=== PATIENT | female | born 1955 | race Caucasian/White ===

== ENCOUNTER 2020-04-12 16:49 | Emergency (ER) | payer MEDICARE, SELFPAY ==
--- NOTE | ~2020-04-12 | XR_ITS ---
XR hip LT 2V w AP pelvis 04/12/2020 18:45 Indication: Left lateral hip pain after fall Procedure: 3 views left hip including AP pelvis Comparison: 05/21/2018 Findings: Pelvic rings are intact. There is a left total hip arthroplasty. No acute fracture or traum atic malalignment. Prosthesis well seated. Osteopenia. Sclerotic lesion in the right ilium superiorly , likely bone island. Moderate osteoarthritis of the right hip. Moderate lower lumbar spondylosis. Pe lvic rings are intact. Impression: 1: No acute fracture. Reviewed, dictated and finalized at location A. ICIAN'S AIDE Impression: 1: No acute fracture.
--- NOTE | ~2020-04-12 | XR_ITS ---
XR knee LT 3V 04/12/2020 18:45 Indication: Status post fall. Left knee pain. Procedure: 3 views left knee Comparison: 05/21/2018 Findings: There has been progression of severe osteoarthritis of the left knee, most advanced in the lateral compartment. There are prominent degenerative subchondral cysts. Osteopenia. Small joint effu lesley. No acute fracture is identified. Impression: 1: No acute fracture. 2: Progression of severe osteoarthritis of the left knee. 2: Small joint effusion. Reviewed, dictated and finalized at location A. ER DEMOLDER Impression: 1: No acute fracture. 2: Progression of severe osteoarthritis of the left knee. 2: Small joint effusion.
[2020-04-12 17:18] VITALS: BP 152/74; PULSE 73; RESP 18; TEMP 36.7; O2SAT 100
--- NOTE | 2020-04-12 19:47 | ED.FALL ---
HPI - Fall General Chief Complaint: Fall Stated Complaint: Fall- left leg pain Time Seen by Provider: 04/12/20 18:58 Source: patient Mode of arrival: ambulatory Limitations: no limitations History of Present Illness HPI Narrative: Patient is a 64 year old female who presents complaining of left knee pain, she reports history of left knee pain but reports increased after slip and fall today. She denies hitting head or LOC. She denies other injuries. Patient has not taken any over the counter medications for pain at this time. Related Data Allergies Allergy/AdvReac Type Severity Reaction Status Date / Time meperidine Allergy Unknown Verified 05/19/15 11:28 Penicillins Allergy Unknown Verified 05/19/15 11:28 Review of Systems Review of Systems: Narrative: CONSTITUTIONAL: Denies fever, chills, or sweats. EYES: Denies visual changes, redness, or discharge. ENT: Denies rhinorrhea, congestion, sore throat, or otalgia. CARDIOVASCULAR: Denies chest pain, palpitations, or edema. RESPIRATORY: Denies cough or dyspnea. GASTROINTESTINAL: Denies abdominal pain, nausea, vomiting, or diarrhea. GENITOURINARY: Denies dysuria or hematuria. SKIN: Denies rash or itching. MUSCULOSKELETAL: Reports left knee pain. NEUROLOGIC: Denies headache, numbness, dizziness, or weakness. PSYCHIATRIC: Denies anxiety or depression. [facility] Past Medical History Medical History Anxiety Arthritis Bipolar disorder Depression Hip fracture, left 05/06/17 HTN (hypertension) Seizures Surgical History Surgical History H/O inguinal hernia repair Family History Family History Mother Family history of heart disease in male family member before age 55 Father Acute myocardial infarction Other Diabetes mellitus Family history of malignant neoplasm Hypertension Social History Social History (Updated 04/13/20 @ 01:00 by ISRAEL Rider) Smoking status: Never smoker Alcohol intake: never Substance use: never Living arrangements: with family Comments At the time of signature, I have reviewed and agree with nursing past medical, surgical, social, and family history unless otherwise noted. Please see nursing chart for further information. There is no relevant family history pertinent to the presenting complaint. Exam Narrative: Exam Narrative: GENERAL: Well-appearing, well-nourished, and in no acute distress. HEAD: Normocephalic, atraumatic. EYES: EOMI. No redness or drainage. Conjunctiva are normal. ENT: Mucous membranes pink and moist. CHEST: No respiratory distress. Clear to auscultation. HEART: Regular rate and rhythm. EXTREMITIES: Edema and tenderness palpation to the left knee, no warmth or erythema noted. No shortness or rotation of left leg SKIN: Warm, dry, no rash. NEURO: No focal deficits. Alert and oriented x3. PSYCH: Normal affect. No signs of depression or anxiety. Course Vital Signs Vital signs: Vital Signs Temperature 36.7 C 04/12/20 17:18 Pulse Rate 73 04/12/20 17:18 Respiratory Rate 18 04/12/20 17:18 Blood Pressure 152/74 H 04/12/20 17:18 Pulse Oximetry 100 04/12/20 17:18 Temperature 36.3 C L 04/12/20 21:13 Pulse Rate 62 04/12/20 21:13 Respiratory Rate 18 04/12/20 21:13 Blood Pressure 148/89 H 04/12/20 21:13 Pulse Oximetry 100 04/12/20 21:13 Reviewed-patient is informed that they may have pre-hypertension or hypertension based on a blood pressure reading. I recommend the patient call the primary care provider listed on their discharge instructions or a physician of their choice this week to arrange follow-up for further evaluation of possible pre-hypertension or hypertension. MDM - Fall MDM Narrative Medical decision making narrative: Discussed with patient and family and that patient's cause of pain most likely
[2020-04-12 21:13] VITALS: BP 148/89; PULSE 62; RESP 18; TEMP 36.3; O2SAT 100
== END 2020-04-12 21:17 | disposition home or self-care (01) ==
PROVIDERS: Emergency Provider Nurse Practitioner; PCP Family Medicine
DX: M17.12 Unilateral primary osteoarthritis, left knee (principal); I10 Essential (primary) hypertension; W01.0XXA Fall on same level from slipping, tripping and stumbling without subsequent striking against object, initial encounter
CPT/HCPCS: 73502; 73562; 99284

== ENCOUNTER 2020-08-17 20:53 | Observation (INO) | payer MEDICARE, SELFPAY ==
--- NOTE | ~2020-08-17 | XR_ITS ---
EXAMINATION: XR ankle LT min 3V EXAM DATE: 08/17/2020 21:43 INDICATION: Fall today, arthritis. TECHNIQUE: Left ankle frontal, lateral and oblique projections obtained and reviewed. Comparison is m germán to prior examination from 05/02/2018, foot exam 12/14/2010. FINDINGS: There is severe polyarticular osteoarthritis. No acute fracture line is identified. Moderat e-sized calcaneal spurs. No radiopaque foreign bodies identified. IMPRESSION: Advanced polyarticular osteoarthritis. No acute fracture line identified. Reviewed, dictated and finalized at location A. IMPRESSION: Advanced polyarticular osteoarthritis. No acute fracture line iden tified.
--- NOTE | ~2020-08-17 | XR_ITS ---
EXAMINATION: XR knee LT 3V EXAM DATE: 08/17/2020 21:44 INDICATION: Fall, arthritis, left knee pops often. Anterior bruising. TECHNIQUE: Three projections of the left knee. Comparison is made to prior examination from 04/12/2020. FINDINGS: There is severe left knee osteoarthritis. Small joint effusion. There are no acute fractu res or dislocations identified. There is no subcutaneous gas. The soft tissue is unremarkable. Th ere are no radiopaque foreign bodies. IMPRESSION: 1. XR knee LT 3V exam without acute osseous findings. 2. Severe osteoarthritis. 3. Small joint effusion. Reviewed, dictated and finalized at location A.
[2020-08-17 21:06] VITALS: BP 136/73; PULSE 71; RESP 15; TEMP 36.9; O2SAT 100
--- NOTE | 2020-08-17 22:15 | ED.GENADULT ---
HPI - General Adult General Chief complaint: Extremity Injury, Lower Stated complaint: fell, left knee pain Time Seen by Provider: 08/17/20 21:22 Source: patient History of Present Illness HPI narrative: Patient is a 65 y/o female complaining of pain to left knee after she fell about 2-3 hours ago. She rates her pain as 10/10. Pain is worsen with movement. She did not hit her head. She denies neck pain, back pain, chest pain or abdominal pain. Related Data Home Medications Medication Instructions Recorded Confirmed fluoxetine 20 mg PO DAILY 08/17/20 08/18/20 lamotrigine 150 mg PO HS 08/17/20 08/18/20 levothyroxine 25 mcg PO DAILY 08/17/20 08/18/20 lisinopril 40 mg PO DAILY 08/17/20 08/18/20 lithium carbonate 450 mg PO Q12H 08/17/20 08/18/20 meloxicam 15 mg PO HS 08/17/20 08/18/20 simvastatin 40 mg PO HS 08/17/20 08/18/20 ergocalciferol (vitamin D2) 1,250 mcg PO WEEKLY 08/18/20 08/18/20 Allergies Allergy/AdvReac Type Severity Reaction Status Date / Time meperidine Allergy Unknown Vomiting Verified 08/17/20 21:53 Penicillins Allergy Unknown Rash Verified 08/17/20 21:53 Review of Systems Constitutional: Constitutional: Denies headache(s) ENT: Denies neck pain Cardiovascular: Cardiovascular: Denies chest pain Gastrointestinal: Gastrointestinal: Reports diarrhea and Reports vomiting Musculoskeletal: Musculoskeletal: Denies back pain, Reports arthralgias (left knee pain) and Denies neck pain Neurologic: Denies headache(s) [facility] Past Medical History Medical History (Updated 08/22/20 @ 14:06 by Nargis Amato MD) Anxiety Arthritis Bipolar disorder Depression Hip fracture, left 05/06/17 HTN (hypertension) Seizures Surgical History Surgical History H/O inguinal hernia repair Family History Family History Mother Family history of heart disease in male family member before age 55 Father Acute myocardial infarction Other Diabetes mellitus Family history of malignant neoplasm Hypertension Social History Social History Smoking status: Never smoker Alcohol intake: never Substance use: never Gender identity (if verbalized by the patient): Female Spiritual care concerns: No Exam Const: General: no acute distress and well developed HENMT: Head: normocephalic Ears: external ears normal General nose exam: Normal external nose present Eyes: General: appearance normal, both eyes and all related structures Conjunctivae: conjunctivae normal Resp: Effort & Inspection: normal respiratory effort Auscultation: clear to auscultation bilaterally Skin: General skin exam: normal color, turgor normal and ecchymosis (bruise on left knee) Neuro: General: other (awake, alert) Extrem: General: normal to inspection and other (chronic appearing deformity of bilateral knee and ankle) Psych: Appearance: grossly normal Mental Status: mental status grossly normal Affect: normal affect Course Reevaluation(s) Reevaluation #1: Rechecked. Patient is not able to ambulate. Sister in law states that she would not be able to get patient in car and back into house. She would patient to go to rehab. Date: 08/17/20 Time: 22:45 Consultations Consultation #1: Discussed with Dr. Hopper, who agrees to admit. She recommends pain control and PT/OT consult. Date: 08/17/20 Time: 23:26 Vital Signs Vital signs: Vital Signs Temperature 36.9 C 08/17/20 21:06 Pulse Rate 71 08/17/20 21:06 Respiratory Rate 15 08/17/20 21:06 Blood Pressure 136/73 08/17/20 21:06 Pulse Oximetry 100 08/17/20 21:06 Temperature 36.2 C L 08/20/20 06:00 Pulse Rate 70 08/20/20 06:00 Respiratory Rate 18 08/20/20 06:00 Blood Pressure 116/74 08/20/20 06:00 Pulse Oximetry 100 08/20/20 06:00 Medical Decision Making Vital Signs Vital Signs: Vital Signs
[2020-08-17 23:08] LABS: Basophils Percent Auto 0.3 % (0.2-1.2); Eosinophils Absolute Auto 0.1 K/mm3 (0-0.3); Eosinophils Percent Auto 1.3 % (0-4.4); Hematocrit 41.6 % (37.0-47.0); Hemoglobin 12.6 g/dL (12.0-15.0); Immature Granulocyte Absolute 0.03 K/mm3 (0.00-0.031); Immature Granulocyte Percent A 0.3 % (0-0.5); Lymphocytes Absolute Auto 0.73 K/mm3 (0.9-3.2); Lymphocytes Percent Auto 7.5 % (18.3-44.2); Mean Corpuscular HGB Conc 30.3 g/dl (32-36); Mean Corpuscular Hemoglobin 29.9 pg (26-34); Mean Corpuscular Volume 98.6 fl (80-100); Mean Platelet Volume 8.9 fl (7.4-10.4); Monocytes Absolute Auto 0.6 K/mm3 (0.1-0.6); Monocytes Percent Auto 6.6 % (2.6-8.5); Neutrophils Absolute Auto 8.2 K/mm3 (1.3-6.7); Platelet Count Result 346 k/mm3 (150-375); Red Blood Count 4.22 M/mm3 (4.2-5.4); Red Cell Distribution Width 13.8 % (11.5-14.5); White Blood Count 9.7 K/mm3 (4.5-10.0)
[2020-08-17 23:17] LABS: Anion Gap 10 mmol/L (8-16); Blood Urea Nitrogen 23 mg/dL (7-17); Calcium 10.2 mg/dL (8.4-10.2); Carbon Dioxide 26 mmol/L (22-30); Chloride 106 mmol/L (98-107); Estimated CRCL calculation 73 ml/min; Estimated Glomerular Filt Rate > 60; Glucose 110 mg/dL (65-105); Potassium 4.3 mmol/L (3.4-5.0); Sodium 142 mmol/L (137-145)
[2020-08-17 23:30] VITALS: BP 126/72; PULSE 76; RESP 18; O2SAT 100
[2020-08-17] MEDS: ACETAMINOPHEN 325 MG TABLET 650 MG PO (23:41)
[2020-08-18 00:30] VITALS: BP 158/75; PULSE 73; RESP 16; TEMP 36.8; O2SAT 98
--- NOTE | 2020-08-18 00:45 | ADMGEN ---
This patient, Kelly Mcmahon, was admitted to 3 [facility] Surg Room 301-01. Patient/family oriented to hospital policies and general routines including ID bracelet, bed and alarms, visiting hours, pain management, procedures, bathroom and other care routines, personal items, smoking policy, room service/diet, and visiting hours. Information on how to activate the Rapid Response Team has been discussed. Patient/Family are encouraged to report perceived risks to care and to ask questions if they do not understand what they are told or what they should do.
[2020-08-18 05:59] VITALS: BP 155/69; PULSE 74; RESP 16; TEMP 36.9; O2SAT 98
--- NOTE | 2020-08-18 08:08 | PM.IMHP ---
H&P: HPI History of Present Illness Date/Time: 08/18/20 08:08 Chief Complaint: FALL Narrative: THIS IS A 65-YEAR-OLD FEMALE WITH PAST MEDICAL HISTORY SIGNIFICANT FOR BIPOLAR DISORDER ,DEGENERATIVE JOINT DISEASE, HYPERTENSION. PATIENT USUALLY USES A WALKER SHE WAS BROUGHT TO THE EMERGENCY ROOM VIA EMS AFTER HER WALKER GOT STUCK SENDING HER TO THE GROUND LANDING ON HER LEFT KNEE SHE STATES THAT IS VERY PAINFUL TO BEAR WEIGHT ON IT OR TO MOVE IT. PATIENT HAS BEEN HER USUAL STATE OF HEALTH DENIES ANY ,FEVERS ,RIGORS, CHILLS, NAUSEA, VOMITING, ABDOMINAL PAIN, DIARRHEA, DIZZINESS, LIGHTHEADEDNESS, CHEST PAIN, PALPITATIONS, ORTHOPNEA, PND, LEG SWELLING, CLAUDICATION, NO SYNCOPE OR NEAR SYNCOPE. PRELIMINARY WORKUP WAS ESSENTIALLY NONREVEALING ANY X-RAY SHOWED SEVERE OSTEO ARTHRITIC CHANGES. Review of Systems Review of Systems: Narrative: PATIENT PRESENTED TO THE EMERGENCY ROOM AFTER SHE HAD A FALL WHEN HER WALKER GOT STUCK SENDING HER TO THE GROUND Constitutional: Constitutional: Denies chills, Denies fatigue, Denies fever(s) and Denies weakness Eyes: Eyes: Denies change in vision ENT: Denies dysphagia, Denies vertigo, Denies dizziness, Denies nasal congestion, Denies nasal discharge and Denies nasal obstruction Cardiovascular: Cardiovascular: Denies irregular heart rhythm, Denies radiating jaw, neck or arm pain, Denies palpitations, Denies dyspnea and Denies orthopnea Respiratory: Respiratory: Denies dyspnea Gastrointestinal: Gastrointestinal: Denies diarrhea, Denies nausea and Denies vomiting Genitourinary: Genitourinary: Denies dysuria Musculoskeletal: Musculoskeletal: Reports arthralgias ( LEFT KNEE) and Reports joint swelling Integumentary/Breasts: Skin/Breast: Denies rash Neurologic: Denies focal weakness and Denies Sensory deficit (Neuro) Psychiatric: Psychiatric: Reports no additional psychiatric complaints Endocrine: Endocrine: Reports no additional endocrine complaints Hematologic/Lymphatic: Hematologic/Lymphatic: Reports no additional hematologic/lymphatic complaints Allergic/Immunologic: Allergic/Immunologic: Reports no additional allergic/immunologic complaints [facility] Past Medical History Medical History (Updated 08/18/20 @ 14:28 by Issac Shah MD) Anxiety Arthritis Bipolar disorder Depression Hip fracture, left 05/06/17 HTN (hypertension) Seizures Surgical History Surgical History H/O inguinal hernia repair Family History Family History Mother Family history of heart disease in male family member before age 55 Father Acute myocardial infarction Other Diabetes mellitus Family history of malignant neoplasm Hypertension Social History Social History Smoking status: Never smoker Alcohol intake: never Substance use: never Gender identity (if verbalized by the patient): Female Spiritual care concerns: No Meds Home Medications and Allergies Home Medications Medication Instructions Recorded Confirmed Type fluoxetine 20 mg PO DAILY 08/17/20 08/18/20 History lamotrigine 150 mg PO HS 08/17/20 08/18/20 History levothyroxine 25 mcg PO DAILY 08/17/20 08/18/20 History lisinopril 40 mg PO DAILY 08/17/20 08/18/20 History lithium carbonate 450 mg PO Q12H 08/17/20 08/18/20 History meloxicam 15 mg PO HS 08/17/20 08/18/20 History simvastatin 40 mg PO HS 08/17/20 08/18/20 History ergocalciferol (vitamin D2) 1,250 mcg PO WEEKLY 08/18/20 08/18/20 History Allergies Allergy/AdvReac Type Severity Reaction Status Date / Time meperidine Allergy Unknown Vomiting Verified 08/17/20 21:53 Penicillins Allergy Unknown Rash Verified 08/17/20 21:53 Vital Signs Vital Signs - 24 hr 08/17/20 21:06 08/17/20 23:30 08/18/20 00:30 Temperature 98.5 F 98.2 F Pulse Rate 71 76 73 Respiratory Rate 15 18 16 Blood Pressure 136/73 126/72 15
[2020-08-18] MEDS: LEVOTHYROXINE SODIUM 25 MCG TABLET PO (09:47)
[2020-08-18] MEDS: FLUoxetine HCL 20 MG CAPSULE PO (09:47)
[2020-08-18] MEDS: lisinopriL 20 MG TABLET 40 MG PO (09:48)
[2020-08-18 11:08] VITALS: O2SAT 96
--- NOTE | 2020-08-18 12:18 | PCNSR ---
On 08/18/20, the student, Tanya Smith, provided care and completed [facility] documentation on this patient. I have reviewed the student's documentation and agree with the findings.
[2020-08-18 14:00] VITALS: BP 141/64; PULSE 72; RESP 16; TEMP 36.5; O2SAT 98
[2020-08-18] MEDS: ACETAMINOPHEN 325 MG TABLET 650 MG PO (20:38)
[2020-08-18] MEDS: lamoTRIgine 100 MG, lamoTRIgine 50 MG 150 MG PO (20:39)
[2020-08-18] MEDS: MELOXICAM 7.5 MG TABLET 15 MG PO (20:39)
[2020-08-18] MEDS: SIMVASTATIN 20 MG TABLET 40 MG PO (20:39)
[2020-08-18 22:00] VITALS: BP 138/71; PULSE 70; RESP 18; TEMP 36.6; O2SAT 100
[2020-08-19] MEDS: LEVOTHYROXINE SODIUM 25 MCG TABLET PO (05:29)
[2020-08-19 05:42] VITALS: BP 143/65; PULSE 54; RESP 18; TEMP 36.2; O2SAT 100
[2020-08-19 08:20] VITALS: PULSE 70
[2020-08-19] MEDS: FLUoxetine HCL 20 MG CAPSULE PO (08:21)
[2020-08-19] MEDS: lisinopriL 20 MG TABLET 40 MG PO (08:21)
[2020-08-19 08:25] VITALS: O2SAT 97
--- NOTE | 2020-08-19 09:18 | PM.IMPN ---
Progress Note: A&P Assessment and Plan (1) Fall: Code(s): W19.XXXA - Unspecified fall, initial encounter Status: Acute Assessment and Plan: MECHANICAL PATIENT USES WALKER PT OT EVAL AND TREAT AWAITING INSURANCE AUTH PLANNED FOR DISCHARGE TO REHABILITATION FACILITY (2) Left knee pain: Code(s): M25.562 - Pain in left knee Status: Acute Assessment and Plan: X-RAY WITH NO ACUTE FRACTURE SMALL EFFUSION SECONDARY TO TRAUMA DURING FALL TRAMADOL AND TYLENOL P.R.N. ICE PACKS TO THE AREA (3) Seizures: Code(s): R56.9 - Unspecified convulsions Status: Acute Assessment and Plan: CONTINUE LAMOTRIGINE (4) HTN (hypertension): Code(s): I10 - Essential (primary) hypertension Status: Acute Assessment and Plan: CONTINUE LISINOPRIL CONTINUE TO MONITOR (5) Arthritis: Code(s): M19.90 - Unspecified osteoarthritis, unspecified site Status: Acute Assessment and Plan: CONTINUE TYLENOL (6) Bipolar disorder: Code(s): F31.9 - Bipolar disorder, unspecified Status: Acute Assessment and Plan: CONTINUE LITHIUM CARBONATE Subjective Date/time seen: 08/19/20 09:18 I FEEL WELL Review of Systems Constitutional: Constitutional: Denies chills, Denies fatigue, Denies fever(s) and Denies weakness Eyes: Eyes: Denies change in vision ENT: Denies dysphagia, Denies vertigo, Denies dizziness, Denies nasal congestion, Denies nasal discharge and Denies nasal obstruction Cardiovascular: Cardiovascular: Denies irregular heart rhythm, Denies radiating jaw, neck or arm pain, Denies palpitations, Denies dyspnea and Denies orthopnea Respiratory: Respiratory: Denies dyspnea Gastrointestinal: Gastrointestinal: Denies dysphagia, Denies diarrhea, Denies nausea and Denies vomiting Genitourinary: Genitourinary: Denies dysuria Musculoskeletal: Musculoskeletal: Reports arthralgias ( LEFT KNEE) and Reports joint swelling Integumentary/Breasts: Skin/Breast: Denies rash Neurologic: Denies vertigo, Denies dizziness, Denies focal weakness, Denies Sensory deficit (Neuro) and Denies weakness Psychiatric: Psychiatric: Reports no additional psychiatric complaints Endocrine: Endocrine: Reports no additional endocrine complaints, Denies fatigue and Denies palpitations Hematologic/Lymphatic: Hematologic/Lymphatic: Reports no additional hematologic/lymphatic complaints Allergic/Immunologic: Allergic/Immunologic: Reports no additional allergic/immunologic complaints Exam Narrative: Exam Narrative: PATIENT WAS PLEASANTLY SLEEPING AT THE TIME OF MY ARRIVAL AND WOKE UP Const: General: cooperative, comfortable, no acute distress, well developed, alert, awake and other ( APPEARS OLDER THAN STATED AGE) Nutritional Appearance: average body habitus Orientation/consciousness: patient oriented x3 HENMT: Head: normal to inspection, normocephalic and atraumatic Ears: hearing grossly normal bilaterally General nose exam: Normal external nose present Face and sinus: normal facial exam Eyes: General: appearance normal, both eyes and all related structures Alignment and Position: alignment normal Sclera: sclerae normal Pupils: Equal, round and reactive pupils present EOM: EOMs intact bilaterally Neck: Neck: full ROM, no lymphadenopathy, supple and no JVD Thyroid: thyroid normal Lymphatic: no lymphadenopathy noted Resp: Effort & Inspection: normal respiratory effort and able to speak in complete sentences Auscultation: clear to auscultation bilaterally Cardio: Jugular venous distension: no JVD Rate: regular rate Rhythm: regular rhythm Heart sounds: S1 normal heart sound present and S2 normal heart sound present : General: Yes deferred Skin: Rashes: no rashes Wounds: no wounds Neuro: General: patient oriented x3, CN's II-XI intact bilaterally and Unable to assess gait Cranial nerves: Yes CN's II-XII intact bilaterally and Yes [place]
--- NOTE | 2020-08-19 12:35 | PHAR ---
PT'S HOME MED LITHIUM CARBONATE ER 450 MG TABS VERIFIED BY PHARMACY
[2020-08-19 14:00] VITALS: BP 122/55; PULSE 69; RESP 16; TEMP 36.6; O2SAT 97
[2020-08-19] MEDS: lamoTRIgine 100 MG, lamoTRIgine 50 MG 150 MG PO (20:25)
[2020-08-19] MEDS: SIMVASTATIN 20 MG TABLET 40 MG PO (20:26)
[2020-08-19] MEDS: MELOXICAM 7.5 MG TABLET 15 MG PO (20:26)
[2020-08-19 22:00] VITALS: BP 134/78; PULSE 65; RESP 16; TEMP 36.7; O2SAT 98
[2020-08-20] MEDS: LEVOTHYROXINE SODIUM 25 MCG TABLET PO (05:24)
[2020-08-20 06:00] VITALS: BP 116/74; PULSE 70; RESP 18; TEMP 36.2; O2SAT 100
[2020-08-20] MEDS: lisinopriL 20 MG TABLET 40 MG PO (08:44)
[2020-08-20] MEDS: ERGOCALCIFEROL 50,000 UNIT CAPSULE 50000 UNITS PO (08:45)
[2020-08-20] MEDS: FLUoxetine HCL 20 MG CAPSULE PO (08:45)
--- NOTE | 2020-08-20 10:49 | PM.DS ---
DS: Admitting Diagnosis Admitting Diagnosis Admitting Diagnosis: left knee contusion DS: Discharge Diagnosis Discharge Diagnosis (1) Fall: Code(s): W19.XXXA - Unspecified fall, initial encounter Status: Acute Assessment and Plan: MECHANICAL PATIENT USES WALKER PT OT EVAL AND TREAT DISCHARGE TO REHABILITATION FACILITY (2) Left knee pain: Code(s): M25.562 - Pain in left knee Status: Acute Assessment and Plan: X-RAY WITH NO ACUTE FRACTURE SMALL EFFUSION SECONDARY TO TRAUMA DURING FALL TRAMADOL AND TYLENOL P.R.N. ICE PACKS TO THE AREA (3) Seizures: Code(s): R56.9 - Unspecified convulsions Status: Acute Assessment and Plan: CONTINUE LAMOTRIGINE (4) HTN (hypertension): Code(s): I10 - Essential (primary) hypertension Status: Acute Assessment and Plan: CONTINUE LISINOPRIL CONTINUE TO MONITOR (5) Arthritis: Code(s): M19.90 - Unspecified osteoarthritis, unspecified site Status: Acute Assessment and Plan: CONTINUE TYLENOL (6) Bipolar disorder: Code(s): F31.9 - Bipolar disorder, unspecified Status: Acute Assessment and Plan: CONTINUE LITHIUM CARBONATE DS: Summary Hospital Course Hospital Course: 65-YEAR-OLD lady [facility] significant for Bipolar disorder, DJD, and HTN admitted afer sustaining a mechanical fall. She uses a walker with ambulation and she tripped and fell on her left knee. Xray imaging showed no acute fractures. The patient is candidate for rehab and will be discharged for further PT and OT. She has been advised to follow up with her PCP within the next 2 weeks. Time Spent with Patient Time attestation: Total time spent providing and/or coordinating discharge services: 45 min Exam Const: General: no acute distress, alert and awake Orientation/consciousness: patient oriented x3 Eyes: Pupils: Equal, round and reactive pupils present EOM: EOMs intact bilaterally Neck: Neck: full ROM, trachea midline and no JVD Thyroid: thyroid normal Chest: Chest palpation & inspection: normal inspection of the chest Resp: Effort & Inspection: normal respiratory effort Auscultation: clear to auscultation bilaterally Cardio: Jugular venous distension: no JVD Rate: regular rate Rhythm: regular rhythm Heart sounds: S1 normal heart sound present and S2 normal heart sound present GI: Inspection: normal to inspection GI Palp: Yes Soft to palpation Percussion: Yes normal to percussion Auscultation: normal bowel sounds : General: Yes no CVA tenderness Neuro: General: patient oriented x3 and CN's II-XI intact bilaterally Cranial nerves: Yes Equal, round and reactive pupils present Speech: normal speech Psych: Appearance: grossly normal Affect: normal affect Discharge Plan Discharge Attending physician on discharge: Silvino Alvarado Discharging Clinician: Carmela Polo Anticipated Discharge Date/Time: 08/20/20 12:00 Patient Disposition: SNF Activity: as tolerated Diet: heart healthy Discharge Instructions: PT/OT per facility Call PCP to schedule follow up within 2 weeks Notify MD at facility upon admission Patient Instructions: Fall Prevention for Older Adults (GEN) Stand Alone Forms: General Discharge Information Follow-up/Referrals: Haseeb Brumfield MD [Primary Care Provider] - (follow up within 14 days) Discharge Medications: Continued lamotrigine 150 mg tablet 150 mg PO HS RF: 0 meloxicam 15 mg tablet 15 mg PO HS RF: 0 lithium carbonate 450 mg tablet extended release 450 mg PO Q12H RF: 0 simvastatin 40 mg tablet 40 mg PO HS RF: 0 levothyroxine 25 mcg tablet 25 mcg PO DAILY RF: 0 lisinopril 40 mg tablet 40 mg PO DAILY RF: 0 fluoxetine 20 mg capsule 20 mg PO DAILY RF: 0 ergocalciferol (vitamin D2) 1,250 mcg (50,000 unit) capsule 1,250 mcg PO WEEKLY RF: 0 Date of admission: 08/17/20 23:27
== END 2020-08-20 12:15 ==
LOC: ANHED 21:40 → ANH3MEDSUR 08-20 08:45
PROVIDERS: Admitting Provider Internal Medicine; Emergency Provider Emergency Medicine; PCP Family Medicine; Visit Provider Internal Medicine
DX: M25.562 Pain in left knee (principal); M25.462 Effusion, left knee; W19.XXXA Unspecified fall, initial encounter; I10 Essential (primary) hypertension; G40.909 Epilepsy, unspecified, not intractable, without status epilepticus; F31.9 Bipolar disorder, unspecified; F41.9 Anxiety disorder, unspecified; M19.90 Unspecified osteoarthritis, unspecified site
CPT/HCPCS: 36415; 73562; 73610; 80048; 85025; 97110; 97161; 97530; 99285; A9270; G0378

== ENCOUNTER 2020-08-25 11:32 | Outpatient (CLI) | payer MEDICARE, SELFPAY ==
--- NOTE | ~2020-08-25 | CT_ITS ---
EXAMINATION: CT knee LT wo con DATE: 08/25/2020 12:01 INDICATION: Left knee pain post trauma TECHNIQUE: High resolution computed tomography (CT) of the left knee was performed without intravenou s contrast. Additional sagittal and coronal reconstructions were performed. Automated exposure contro l and iterative reconstruction technique were employed. The dose-length product was 424.73 mGy-cm. COMPARISON: None FINDINGS: Mild valgus angulation at the left knee resulting from advanced osteoarthritis in the medial compartm ent with remodeling of the articular surfaces at both the lateral tibial plateau and along the weight bearing lateral femoral condyle. There is a loose osteochondral fragment in situ situated along the l ateral shoulder the intercondylar eminence overlying a large geode. Additional severe osteoarthritis in both the medial and patellofemoral compartments with additional prominent subarticular cystic pandey ges at the posterior medial tibial plateau and along both sides of the lateral aspect of the patellof emoral compartment. No acute fracture other than potentially the previous noted small loose osteochon dral fragment in situ. Small knee joint effusion with surrounding synovitis. There is also a small Ba ker's cyst.. IMPRESSION: 1. Tricompartmental osteoarthritis of the left knee, advanced in the medial compartment with age-inde terminate small loose osteochondral fragment in situ involving the roof of a large degenerative subch ondral cysts at the lateral shoulder the intercondylar eminence. No other potentially acute osseous a bnormality. 2. Likely reactive small left knee joint effusion with prominent surrounding synovitis. 3. Small Leroy's cyst. Reviewed, dictated and finalized at location A. IMPRESSION: 1. Tricompartmental osteoarthritis of the left knee, advanced in the medial com partment with age-indeterminate small loose osteochondral fragment in situ invo lving the roof of a large degenerative subchondral cysts at the lateral shoulde r the intercondylar eminence. No other potentially acute osseous abnormality. 2. Likely reactive small left knee joint effusion with prominent surrounding sy novitis. 3. Small Leroy's cyst.
[2020-08-25 12:57] LABS: Basophils Percent Auto 0.5 % (0.2-1.2); Eosinophils Absolute Auto 0.2 K/mm3 (0-0.3); Eosinophils Percent Auto 2.9 % (0-4.4); Hematocrit 41.8 % (37.0-47.0); Hemoglobin 12.8 g/dL (12.0-15.0); Immature Granulocyte Absolute 0.03 K/mm3 (0.00-0.031); Immature Granulocyte Percent A 0.4 % (0-0.5); Lymphocytes Absolute Auto 0.75 K/mm3 (0.9-3.2); Lymphocytes Percent Auto 10.2 % (18.3-44.2); Mean Corpuscular HGB Conc 30.6 g/dl (32-36); Mean Corpuscular Hemoglobin 29.9 pg (26-34); Mean Corpuscular Volume 97.7 fl (80-100); Mean Platelet Volume 9.1 fl (7.4-10.4); Monocytes Absolute Auto 0.6 K/mm3 (0.1-0.6); Neutrophils Absolute Auto 5.7 K/mm3 (1.3-6.7); Platelet Count Result 329 k/mm3 (150-375); Red Blood Count 4.28 M/mm3 (4.2-5.4); Red Cell Distribution Width 13.5 % (11.5-14.5); White Blood Count 7.4 K/mm3 (4.5-10.0)
[2020-08-25 13:11] LABS: Rheumatoid Factor < 8.6 IU/ML (<12)
[2020-08-25 13:12] LABS: CRP < 0.5 mg/dL (<1.0)
[2020-08-25 13:49] LABS: Erythrocyte Sedimentation Rate 25 mm/hr (0-20)
== END 2020-08-25 11:33 | disposition home or self-care (01) ==
PROVIDERS: PCP Family Medicine; Visit Provider Orthopaedic Surgery
DX: M25.562 Pain in left knee (principal)
CPT/HCPCS: 36415; 73700; 85025; 85652; 86038; 86140; 86430

== ENCOUNTER 2020-09-07 10:00 | Outpatient (CLI) | payer MEDICARE, SELFPAY ==
--- NOTE | ~2020-09-07 | CT_ITS ---
EXAMINATION: CT knee LT wo con DATE: 09/07/2020 10:36 INDICATION: Left knee pain post fall TECHNIQUE: High resolution computed tomography (CT) of the left knee was performed without intravenou s contrast. Additional sagittal and coronal reconstructions were performed. Automated exposure contro l and iterative reconstruction technique were employed. The dose-length product was 377.06 mGy-cm. COMPARISON: None FINDINGS: Advanced osteoarthritis at the left knee. There is minimal secondary lateral subluxation of the tibia with respect to the femoral condyles as well as mild genu valgus. No fracture. There is remodeling w ith subarticular sclerosis and extensive subarticular cystic changes at the articular surfaces of the weightbearing lateral femoral condyle and the lateral tibial plateau. Additional prominent subarticu lar cystic changes along the lateral aspect of the patellofemoral articulation and in the medial comp artment along the medial and posterior aspect of the medial tibial plateau. There also extensive mode rate to large marginal osteophytes at all 3 compartments. No acute fracture. Small knee joint effusio n. There are a couple loose osteochondral bodies at the lateral recess of the knee. There is a region of the sclerosis underlying the lateral tibial plateau which appears more dense peripherally with so mewhat serpiginous configuration and with ring and arc-like configuration along its inferior margin a nd differential would include small bone infarct or less likely enchondroma. IMPRESSION: 1. No fracture. 2. Tricompartmental osteoarthritis in the left knee, advanced in the lateral compartment and severe i n the medial and patellofemoral compartments. 3. Small likely reactive left knee joint effusion without layering lipohemarthrosis. 4. Possible bone infarct versus enchondroma underlying the lateral tibial plateau. Reviewed, dictated and finalized at location A. IMPRESSION: 1. No fracture. 2. Tricompartmental osteoarthritis in the left knee, advanced in the lateral co mpartment and severe in the medial and patellofemoral compartments. 3. Small likely reactive left knee joint effusion without layering lipohemarthr osis. 4. Possible bone infarct versus enchondroma underlying the lateral tibial plate au.
== END 2020-09-07 10:01 | disposition home or self-care (01) ==
LOC: ANHIMG 10:03
PROVIDERS: PCP Family Medicine; Visit Provider Orthopaedic Surgery
DX: M17.12 Unilateral primary osteoarthritis, left knee (principal)
CPT/HCPCS: 73700

== ENCOUNTER 2021-05-31 17:25 | Observation (INO) | payer MEDICARE, SELFPAY ==
[2021-05-31] VITALS (8 sets, daily range): BP systolic 106–171; BP diastolic 56–99; PULSE 69–83; RESP 16–18; TEMP 36.8–37.5; O2SAT 98–100; BMI 31.3
--- NOTE | ~2021-05-31 | XR_ITS ---
EXAMINATION: XR chest 1V portable INDICATION: Pre-existing PICC line TECHNIQUE: Portable AP chest at 2231 hours COMPARISON: 05/06/2017 FINDINGS: A right upper extremity PICC ends with its tip at the distal superior vena cava. The lungs are free of acute opacities. There is no pleural effusion or pneumothorax. The cardiomediastinal silh ouette is normal. There is advanced osteoarthritis of the right shoulder. IMPRESSION: 1. Right upper extremity PICC ending with its tip at the distal superior vena cava. Reviewed, dictated and finalized at location F. IMPRESSION: 1. Right upper extremity PICC ending with its tip at the distal superior vena c salo.
--- NOTE | 2021-05-31 17:38 | ECG_ITS ---
Measurements Intervals Romayor Rate: 79 P: 54 IL: 206 QRS: -60 QRSD: 168 T: 104 QT: 426 QTc: 490 Interpretive Statements SINUS RHYTHM MARKED LEFT AXIS DEVIATION [QRS AXIS < -30] LEFT BUNDLE BRANCH BLOCK [120+ ms QRS DURATION, 80+ ms Q/S IN V1/V2, 85+ ms R IN I/aVL/V5/V6] NO PREVIOUS ECG AVAILABLE FOR COMPARISON Electronically Signed On 06-01-2021 13:40:39 CDT by Leighann Blevins M.D.
[2021-05-31 17:56] LABS: Basophils Percent Auto 0.6 % (0.2-1.2); Eosinophils Absolute Auto 0.2 K/mm3 (0-0.3); Hemoglobin 7.3 g/dL (12.0-15.0); Immature Granulocyte Absolute 0.01 K/mm3 (0.00-0.031); Immature Granulocyte Percent A 0.1 % (0-0.5); Lymphocytes Absolute Auto 0.95 K/mm3 (0.9-3.2); Lymphocytes Percent Auto 14.1 % (18.3-44.2); Mean Corpuscular HGB Conc 28.1 g/dl (32-36); Mean Corpuscular Hemoglobin 24.6 pg (26-34); Mean Corpuscular Volume 87.5 fl (80-100); Monocytes Absolute Auto 0.6 K/mm3 (0.1-0.6); Monocytes Percent Auto 9.2 % (2.6-8.5); Neutrophils Absolute Auto 4.9 K/mm3 (1.3-6.7); Platelet Count Result 388 k/mm3 (150-375); Red Blood Count 2.97 M/mm3 (4.2-5.4); Red Cell Distribution Width 16.3 % (11.5-14.5); White Blood Count 6.8 K/mm3 (4.5-10.0)
[2021-05-31 18:05] LABS: Hypochromasia 1+ (NORMAL); Platelet Estimate Increased (Adequate)
[2021-05-31 18:06] LABS: Alanine Aminotransferase 11 U/L (4-35); Albumin Level 3.1 g/dL (3.5-5.1); Alkaline Phosphatase 124 U/L (38-126); Anion Gap 2 mmol/L (8-16); Aspartate Amino Transferase 24 U/L (14-36); Bilirubin,Total < 0.1 mg/dL (0.2-1.3); Blood Urea Nitrogen 14 mg/dL (7-17); Calcium 8.5 mg/dL (8.4-10.2); Carbon Dioxide 27 mmol/L (22-30); Chloride 110 mmol/L (98-107); Estimated CRCL calculation 106 ml/min; Estimated Glomerular Filt Rate > 60; Glucose 114 mg/dL (65-110); Potassium 3.8 mmol/L (3.4-5.0); Sodium 139 mmol/L (137-145)
--- NOTE | 2021-05-31 19:00 | PC.NURSE ---
Assuming care of pt.
[2021-05-31 19:10] LABS: Add Urine Microscopic? NO; Appearance Urine Clear (Clear); Bilirubin Urine Negative (Negative); Blood Urine Negative (Negative); Color Urine Straw (Yellow); Glucose Urine UA Negative (Negative); Ketones Urine Negative (Negative); Leukocyte Esterase Ur Negative LEU/UL (Negative); Nitrate Urine Negative (Negative); Protein Urine Negative (Negative); Specific Grav Ur 1.011 (1.001-1.035); Urobilinogen Urine Negative mg/dL (<2.0)
--- NOTE | 2021-05-31 19:13 | ED.RECABL ---
HPI - Recheck/Abnormal Lab/Rx General Chief Complaint: Recheck/Abnormal Lab/Rx Stated Complaint: abnormal labs - low hemoglobin Time Seen by Provider: 05/31/21 19:07 Source: patient and EMS Mode of arrival: EMS Limitations: no limitations History of Present Illness HPI narrative: Pt had outpatient labs done two days ago and informed her hemoglobin was low. Pt says she feels a little weak and a little SOB but denies CP. Pt denies bleeding or melena. complaint: abnormal lab Related Data Home Medications Medication Instructions Recorded Confirmed fluoxetine 20 mg PO DAILY 08/17/20 08/18/20 lamotrigine 150 mg PO HS 08/17/20 08/18/20 levothyroxine 25 mcg PO DAILY 08/17/20 08/18/20 lisinopril 40 mg PO DAILY 08/17/20 08/18/20 lithium carbonate 450 mg PO Q12H 08/17/20 08/18/20 meloxicam 15 mg PO HS 08/17/20 08/18/20 simvastatin 40 mg PO HS 08/17/20 08/18/20 ergocalciferol (vitamin D2) 1,250 mcg PO WEEKLY 08/18/20 08/18/20 Allergies Allergy/AdvReac Type Severity Reaction Status Date / Time meperidine Allergy Unknown Vomiting Verified 08/17/20 21:53 Penicillins Allergy Unknown Rash Verified 08/17/20 21:53 Review of Systems Review of Systems: All systems reviewed & are unremarkable except as noted in HPI and below PMFSH Past Medical History Medical History (Updated 05/31/21 @ 19:35 by Aleyda Whatley III, DO) Anxiety Arthritis Bipolar disorder Depression Hip fracture, left 05/06/17 HTN (hypertension) Seizures Surgical History Surgical History H/O inguinal hernia repair Family History Family History Mother Family history of heart disease in male family member before age 55 Father Acute myocardial infarction Other Diabetes mellitus Family history of malignant neoplasm Hypertension Social History Social History Smoking status: Never smoker Second hand tobacco smoke exposure: No Alcohol intake: never Substance use: never Substance use type: does not use Gender identity (if verbalized by the patient): Female Spiritual care concerns: No Exam Const: General: no acute distress Orientation/consciousness: patient oriented x3 HENMT: Head: normal to inspection Eyes: Pupils: Equal, round and reactive pupils present Resp: Effort & Inspection: normal respiratory effort Auscultation: clear to auscultation bilaterally Cardio: Rate: regular rate Rhythm: regular rhythm GI: GI Palp: Yes Soft to palpation Auscultation: normal bowel sounds Skin: Other: slightly pale Neuro: General: patient oriented x3, moves all extremities and no focal motor deficits Extrem: General: normal to inspection Psych: Appearance: grossly normal Mental Status: mental status grossly normal Thought content: Yes Normal thought content present Course Vital Signs Vital signs: Vital Signs Temperature 98.3 F 05/31/21 17:36 Pulse Rate 79 05/31/21 17:36 Respiratory Rate 18 05/31/21 17:36 Blood Pressure 136/80 05/31/21 17:36 Pulse Oximetry 100 05/31/21 17:36 Temperature 98.3 F 05/31/21 17:36 Pulse Rate 83 05/31/21 20:37 Respiratory Rate 16 05/31/21 20:37 Blood Pressure 171/87 H 05/31/21 20:37 Pulse Oximetry 98 05/31/21 20:37 MDM - Recheck/Abnormal Lab/Rx Lab Data Result diagrams: 05/31/21 17:45 05/31/21 17:45 Labs: Lab Results 05/31/21 05/31/21 05/31/21 Range/Units 17:45 17:45 17:45 WBC 6.8 (4.5-10.0) K/mm3 RBC 2.97 L (4.2-5.4) M/mm3 Hgb 7.3 L D (12.0-15.0) g/dL Hct 26.0 L (37.0-47.0) % MCV 87.5 (80-100) fl MCH 24.6 L (26-34) pg MCHC 28.1 L (32-36) g/dl RDW 16.3 H (11.5-14.5) % Plt Count 388 H (150-375) k/mm3 MPV 9.0 (7.4-10.4) fl Immature Gran % (Auto) 0.1 (0-0.5) % Neut % (Auto) 73.0 (45.5-73.1) % Lymph % (Au
--- NOTE | 2021-05-31 20:22 | PM.IMHP ---
H&P: HPI History of Present Illness Date/Time: 05/31/21 20:22 Chief Complaint: Abnormal lab value. Narrative: This is a 65-year-old female with past medical history significant for bipolar disorder, depression, hypertension, seizures, patient is status post left hip total hemiarthroplasty. Patient comes to the emergency room after labs were drawn at her outpatient doctor's office and her hemoglobin came back as lower down her usual. Patient denies any hematemesis, melena, hematochezia, coffee-ground emesis, patient states that she has been eating all her meals has had good appetite, denies any weight loss. Patient denies any fevers, rigors ,chills ,cough ,sputum production, no abdominal pain, nausea, vomiting or diarrhea she has been participating in physical therapy and occupational therapy and has had no other issues. Repeat blood work confirmed a hemoglobin of 7 patient is been admitted for further evaluation, management and treatment. Review of Systems Review of Systems: Patient is status post left hip semi arthroplasty comes to the emergency room after blood work showed a hemoglobin lower than her usual. Constitutional: Constitutional: Denies chills, Reports fatigue, Denies fever(s), Denies malaise, Denies night sweats and Denies weakness Eyes: Eyes: Denies change in vision ENT: Denies dysphagia, Denies vertigo, Denies dizziness, Denies nasal congestion, Denies nasal discharge, Denies nasal obstruction and Denies odynophagia Cardiovascular: Cardiovascular: Reports dyspnea Respiratory: Respiratory: Denies cough and Denies excessive phlegm production Gastrointestinal: Gastrointestinal: Denies abdominal pain, Denies melena, Denies hematochezia, Denies coffee ground emesis, Denies dyspepsia, Denies heartburn, Denies nausea and Denies vomiting Genitourinary: Genitourinary: Denies dysuria Musculoskeletal: Comments: Left hip arnoldo arthroplasty Integumentary/Breasts: Skin/Breast: Denies rash Neurologic: Denies focal weakness and Denies Sensory deficit (Neuro) Psychiatric: Psychiatric: Reports no additional psychiatric complaints and Reports as per HPI Endocrine: Endocrine: Denies cold intolerance, Denies heat intolerance, Denies polyphagia, Denies polydipsia, Denies polyuria and Denies palpitations Hematologic/Lymphatic: Hematologic/Lymphatic: Reports no additional hematologic/lymphatic complaints and Reports as per HPI Allergic/Immunologic: Allergic/Immunologic: Reports no additional allergic/immunologic complaints and Reports as per [facility] Past Medical History Medical History (Updated 05/31/21 @ 19:35 by Aleyda Whatley III, DO) Anxiety Arthritis Bipolar disorder Depression Hip fracture, left 05/06/17 HTN (hypertension) Seizures Surgical History Surgical History H/O inguinal hernia repair Family History Family History Mother Family history of heart disease in male family member before age 55 Father Acute myocardial infarction Other Diabetes mellitus Family history of malignant neoplasm Hypertension Social History Social History Smoking status: Never smoker Second hand tobacco smoke exposure: No Alcohol intake: never Substance use: never Substance use type: does not use Gender identity (if verbalized by the patient): Female Spiritual care concerns: No Meds Home Medications and Allergies Home Medications Medication Instructions Recorded Confirmed Type fluoxetine 20 mg PO DAILY 08/17/20 05/31/21 History lamotrigine 150 mg PO HS 08/17/20 05/31/21 History levothyroxine 25 mcg PO DAILY 08/17/20 05/31/21 History lisinopril 40 mg PO DAILY 08/17/20 05/31/21 History meloxicam 15 mg PO HS 08/17/20 05/31/21 History simvastatin 40 mg PO HS 08/17/20 05/31/21 History ergocalciferol (vitamin D2) 1,250 mcg PO WEEKLY 08/18/20 05/31/21 His
--- NOTE | 2021-05-31 20:49 | PC.NURSE ---
This patient, Kelly Mcmahon, was admitted to [facility] Surg Room 306-01. Patient/family oriented to hospital policies and general routines including ID bracelet, bed and alarms, visiting hours, pain management, procedures, bathroom and other care routines, personal items, smoking policy, room service/diet, and visiting hours. Information on how to activate the Rapid Response Team has been discussed. Patient/Family are encouraged to report perceived risks to care and to ask questions if they do not understand what they are told or what they should do.
--- NOTE | 2021-05-31 21:11 | PC.NURSE ---
Francheska spoke to pts brother Leonardo Mcmahon. He called for an update.
[2021-06-01] VITALS (14 sets, daily range): BP systolic 115–143; BP diastolic 57–80; PULSE 66–80; RESP 15–18; TEMP 36.4–37.2; O2SAT 93–99
[2021-06-01] MEDS: SODIUM CHLORIDE 0.9% IV 250 ML 30 ML (00:28)
[2021-06-01] MEDS: SODIUM CHLORIDE 0.9% IV 250 ML 30 ML IV CONT (00:37)
[2021-06-01 04:22] LABS: Hematocrit 28.4 % (37.0-47.0); Hemoglobin 8.2 g/dL (12.0-15.0)
[2021-06-01] MEDS: LEVOTHYROXINE SODIUM 25 MCG TABLET PO (05:45)
[2021-06-01 08:25] LABS: Anion Gap 4 mmol/L (8-16); Blood Urea Nitrogen 15 mg/dL (7-17); Calcium 8.7 mg/dL (8.4-10.2); Carbon Dioxide 24 mmol/L (22-30); Chloride 111 mmol/L (98-107); Estimated CRCL calculation 90 ml/min; Estimated Glomerular Filt Rate > 60; Glucose 114 mg/dL (65-110); Potassium 3.9 mmol/L (3.4-5.0); Sodium 139 mmol/L (137-145)
[2021-06-01] MEDS: LITHIUM CARBONATE 150 MG CAPSULE PO (09:23)
[2021-06-01] MEDS: FLUoxetine HCL 20 MG CAPSULE PO (09:23)
[2021-06-01 09:32] LABS: Folic Acid 7.9 ng/mL (2.76->20)
[2021-06-01 10:17] LABS: Iron 24 ug/dL (37-170)
--- NOTE | 2021-06-01 10:18 | PC.NURSE ---
Shahla TAVARES attempted to call [address] for pt's history at 0950 and was placed on hold for 15 minutes, 5 minutes, and left a direct message to be given to the RN at facility. [facility] RN called back at 1020. Stephanie stated the PICC was inserted either on 05/27 or 05/28 for IV antibiotics. RN verified reason for PICC line. Vancomycin 1250mg/250ml IV Q12HR to run 166ml/hr over 90 minutes was ordered. First dose was given on 05/28 around 2099. Stephanie RN stated only 2 doses were given, the last dose given at 05/30 around 2099. Shahla TAVARES questioned why 3 doses were held.
[2021-06-01 10:27] LABS: Percent Iron Saturation 8 % (20-50)
--- NOTE | 2021-06-01 10:51 | PCOTNOTE ---
Unable to complete OT evaluation, patient reports has a WB status on L knee but does not know what it is. RN notified and RN reports to hold until WB status is determined and order is entered. Will follow.
--- NOTE | 2021-06-01 10:55 | PCPTNOTE ---
Unable to complete PT evaluation, patient reports has a WB status on L knee but does not know what it is. RN notified and RN reports to hold until WB status is determined and order is entered. Will follow.
[2021-06-01 11:04] LABS: Hematocrit 29.3 % (37.0-47.0); Hemoglobin 8.6 g/dL (12.0-15.0)
--- NOTE | 2021-06-01 11:26 | WPDGICN ---
Assessment and Plan Assessment and plan (1) Anemia: Qualifiers: Anemia type: unspecified type Qualified Code(s): D64.9 - Anemia, unspecified Code(s): D64.9 - Anemia, unspecified Status: Acute Assessment and Plan: Her anemia is presumably due to blood loss. We will schedule her for EGD and colonoscopy to be done tomorrow. I have discussed the procedures with her as well as a prep for colonoscopy and the risks such as the possibilities of bleeding, perforation, or even the need for surgery for complications. (2) Seizures: Code(s): R56.9 - Unspecified convulsions Status: Acute Assessment and Plan: She has long history of seizures and is on medication for that. GI Consult Note Consult date/time: 06/01/21 11:26 HPI: Kelly Mcmahon is a 65 year old female Who is admitted with severe anemia. She was not aware of any blood loss. She has not seen blood her stools. Her hemoglobin was found to be 7 g when checked by her primary care physician and repeat here is 7.3. She has had no abdominal pain nausea or vomiting. She denies dysphagia or heartburn. She denies any significant change in bowel habits and does not believe that she has had any blood in her stools. She had performed a Cologuard test at 1 time but has not had a colonoscopy. She does take meloxicam daily for arthritis but does not use other [id number] NSAIDs. She has a history of seizure disorder and bipolar disorder for which she is on medications. Review of Systems Review of Systems: All systems reviewed & are unremarkable except as noted in HPI and below PMFSH Past Medical History Medical History Anxiety Arthritis Bipolar disorder Depression Hip fracture, left 05/06/17 HTN (hypertension) Seizures Surgical History Surgical History H/O inguinal hernia repair Family History Family History Mother Family history of heart disease in male family member before age 55 Father Acute myocardial infarction Other Diabetes mellitus Family history of malignant neoplasm Hypertension Social History Social History Smoking status: Never smoker Second hand tobacco smoke exposure: No Alcohol intake: never Substance use: never Substance use type: does not use Gender identity (if verbalized by the patient): Female Spiritual care concerns: No Meds Home Medications and Allergies Home Medications Medication Instructions Recorded Confirmed Type fluoxetine 20 mg PO DAILY 08/17/20 05/31/21 History lamotrigine 150 mg PO HS 08/17/20 05/31/21 History levothyroxine 25 mcg PO DAILY 08/17/20 05/31/21 History lisinopril 40 mg PO DAILY 08/17/20 05/31/21 History meloxicam 15 mg PO HS 08/17/20 05/31/21 History simvastatin 40 mg PO HS 08/17/20 05/31/21 History ergocalciferol (vitamin D2) 1,250 mcg PO WEEKLY 08/18/20 05/31/21 History lithium carbonate 150 mg PO BID 05/31/21 05/31/21 History mupirocin 1 applic TOPICAL DAILY 05/31/21 05/31/21 History Allergies Allergy/AdvReac Type Severity Reaction Status Date / Time meperidine Allergy Unknown Vomiting Verified 08/17/20 21:53 Penicillins Allergy Unknown Rash Verified 08/17/20 21:53 Vital Signs Vital Signs - 24 hr 05/31/21 17:36 05/31/21 19:35 05/31/21 20:16 Temperature 36.8 C Pulse Rate 79 73 Respiratory Rate 18 18 18 Blood Pressure 136/80 130/77 Pulse Oximetry 100 99 05/31/21 20:37 05/31/21 21:46 05/31/21 21:58 Temperature 37.0 C 37.5 C Pulse Rate 83 74 75 Respiratory Rate 16 16 18 Blood Pressure 171/87 H 131/71 117/65 Pulse Oximetry 98 98 98 05/31/21 22:01 05/31/21 23:01 06/01/21 00:00 Temperature 37.2 C 37.0 C 36.6 C Pulse Rate 69 72 77 Respiratory Rate 17 16 17 Blood Pressure 106/56 L 125/99 H 1
--- NOTE | 2021-06-01 14:13 | PCOTNOTE ---
Attempted OT evaluation, per RN hold for afternoon until WB status can be determined. Will follow.
--- NOTE | 2021-06-01 14:21 | PCPTNOTE ---
Attempted PT evaluation, per RN hold for afternoon until WB status can be determined. Will follow.
[2021-06-01] MEDS: polyethylene glycoL 3350 238 GM BOTTLE PO (14:53)
[2021-06-01] MEDS: BISACODYL 5 MG TABLET EC 20 MG PO (14:54)
--- NOTE | 2021-06-01 14:56 | PC.NURSE ---
On 06/01/21, the student, Tanya Anderson, provided care and completed [facility] documentation on this patient. I have reviewed the student's documentation and agree with the findings.
--- NOTE | 2021-06-01 15:36 | PC.NURSE ---
Pt had a follow up appointment scheduled with her outpatient orthosurgeon, Dr. Crow Bean. The office requested wound photos and Lt knee records from Shahla TAVARES. RN denied providing pt's medical records to Dr. Bean and request they take the appropriate steps to obtaining these records. net developer programmer notified. Hospitalist notified. The next follow up appointment is rescheduled for Sunday June 06, 2021 at 1020AM at address: [address] [place] [address] Pt. Pkareny. [facility] [address], [place]. [address]. Patient notified.
--- NOTE | 2021-06-01 15:41 | PM.IMPN ---
Progress Note: A&P Assessment and Plan (1) Anemia: Qualifiers: Anemia type: unspecified type Qualified Code(s): D64.9 - Anemia, unspecified Code(s): D64.9 - Anemia, unspecified Status: Acute Assessment and Plan: Presented to ED after discovered anemia on outpatient labs. Hemoglobin 7.3 on presentation. Normocytic She was transfuse 2 units packed RBCs H&H is stabilized following transfusion. Hemoglobin 8.6 this afternoon Monitor q.6 hours Appreciate gastroenterology consultation Planning for EGD and colonoscopy tomorrow Meloxicam on hold Begin Protonix 40 mg b.i.d. Iron panel reviewed with decreased iron stores, B12 and folate within normal limits. Stool occult blood test pending (2) Status post left knee replacement: Code(s): Z96.652 - Presence of left artificial knee joint Status: Acute Assessment and Plan: Patient is s/p left knee replacement (date of surgery unknown) She had a wound VAC of the left knee which was removed 1 week prior. This was a disposable wound VAC to keep incision intact Has been evaluated by wound care. Continue Xeroform gauze to promote healing Appreciate PT/OT eval. Continue with weight-bearing status (3) HTN (hypertension): Code(s): I10 - Essential (primary) hypertension Status: Acute Assessment and Plan: Blood pressures reviewed and have been stable. Last BP 135/80 Resume lisinopril Monitor blood pressure trends (4) Bipolar disorder: Code(s): F31.9 - Bipolar disorder, unspecified Status: Acute Assessment and Plan: Stable, no acute issues Continue lithium Subjective Date/time seen: 06/01/21 15:41 Interval history: Date of service: 06/01/2021 Kelly Mcmahon is a 65-year-old female with a history of hypertension, anxiety, depression, bipolar disorder, seizure disorder, and recent left knee replacement who is seen in follow-up for acute anemia. The patient is a poor historian and is difficult to obtain clear history. She states that she was bleeding from her need for 2 days. She denies knee pain or drainage. She states she has been participating in therapy since her surgery and she is only supposed to bear weight of 20 lb on her left lower extremity. She does complain of a sore throat. Denies cough or chest pain. Denies nausea, vomiting, fever, chills dizziness, lightheadedness. Her appetite is good. She denies dysuria or hematuria. Denies melena or hematochezia, hemoptysis, hematemesis, epistaxis. Review of Systems Review of Systems: All systems reviewed & are unremarkable except as noted in HPI and below Exam Narrative: General: Well-nourished, chronically ill-appearing 65 year-old female appearing slightly older than stated age, semi recumbent in bed, comfortable, NARD Neuro: awake, alert and oriented x4, speech clear, no focal neuro deficits noted HEENMT: normocephalic, atraumatic, EOMI, sclerae anicteric, moist oral mucosa Respiratory: clear to auscultation anteriorly, nonlabored breathing Cardio: regular rate, regular rhythm with S1-S2 Abdomen: nondistended, normoactive bowel sounds, soft, nontender to palpation, able to wiggle toes bilaterally, sensation intact Extremities: Left knee covered in bandage that is clean and dry removed to reveal incision without evidence of infection, no edema, erythema, or tenderness to palpation, DP pulses 2+ bilaterally Skin: no rashes or lesions, warm and dry Psych: appropriate mood and affect, judgment and insight fair Objective Data Vital Signs Vital Signs: Vital Signs - 24 hr 05/31/21 17:36 05/31/21 19:35 05/31/21 20:16 Temperature 98.3 F Pulse Rate 79 73 Respiratory Rate 18 18 18 Blood Pressure 136/80 130/77 Pulse Oximetry 100 99 05/31/21 20:37 05/31/21 21:46 05/31/21 21:58 Temperature 98.6 F 99.5 F Pulse Rate 83 74 75 Respiratory Rate 16 16 18 Blood Pressure 171/87 H 131/71 117/65 Pulse Oximet
[2021-06-01 19:00] LABS: Hematocrit 29.8 % (37.0-47.0); Hemoglobin 8.6 g/dL (12.0-15.0)
[2021-06-01] MEDS: SIMVASTATIN 20 MG TABLET 40 MG PO (20:09)
[2021-06-01] MEDS: PANTOPRAZOLE SODIUM IV 40 MG VIAL IV PUSH (20:10)
[2021-06-01] MEDS: lamoTRIgine 50 MG TABLET 150 MG PO (20:10)
[2021-06-02] VITALS (11 sets, daily range): BP systolic 113–163; BP diastolic 66–78; PULSE 61–91; RESP 16–28; TEMP 36.7–37.1; O2SAT 98–100
[2021-06-02 00:23] LABS: Hematocrit 30.1 % (37.0-47.0); Hemoglobin 8.6 g/dL (12.0-15.0)
[2021-06-02] MEDS: MAGNESIUM CITRATE 300 ML BTL 180 ML PO (04:36)
[2021-06-02 04:54] LABS: Hematocrit 29.3 % (37.0-47.0); Hemoglobin 8.7 g/dL (12.0-15.0); Mean Corpuscular HGB Conc 29.7 g/dl (32-36); Mean Corpuscular Hemoglobin 24.8 pg (26-34); Mean Corpuscular Volume 83.5 fl (80-100); Mean Platelet Volume 8.7 fl (7.4-10.4); Platelet Count Result 357 k/mm3 (150-375); Red Blood Count 3.51 M/mm3 (4.2-5.4); Red Cell Distribution Width 17.2 % (11.5-14.5); White Blood Count 6.3 K/mm3 (4.5-10.0)
[2021-06-02 04:59] LABS: Anion Gap 4 mmol/L (8-16); Blood Urea Nitrogen 13 mg/dL (7-17); Calcium 8.7 mg/dL (8.4-10.2); Carbon Dioxide 27 mmol/L (22-30); Chloride 108 mmol/L (98-107); Estimated CRCL calculation 106 ml/min; Estimated Glomerular Filt Rate > 60; Glucose 95 mg/dL (65-110); Sodium 139 mmol/L (137-145)
--- NOTE | 2021-06-02 07:33 | PC.NURSE ---
Pt received magnesium citrate this morning, tolerated well. Pt had 3 large loose brownish stools this shift.
[2021-06-02] MEDS: PANTOPRAZOLE SODIUM IV 40 MG VIAL IV PUSH ×2 (08:44→20:43)
--- NOTE | 2021-06-02 09:11 | PCOTNOTE ---
Attempted OT evaluation, attempted to call [facility] rehab department to obtain patients WB status for L LE. Will follow and attempt evaluation when WB status is obtained, RN notified.
--- NOTE | 2021-06-02 09:17 | PCPTNOTE ---
Attempted PT evaluation, attempted to call [facility] rehab department to obtain patients WB status for L LE. Will follow and attempt evaluation when WB status is obtained, RN notified.
--- NOTE | 2021-06-02 10:21 | PCOTNOTE ---
Patient states PWB of 20LB weight bearing on L LE and limiting extension of L knee due to wound vac placement, this has been confirmed by Jackie stage director at [facility] where patient was previously admitted for rehab prior to this hospitalization. Jackie will fax copy of order for WB status for our records.
--- NOTE | 2021-06-02 12:20 | WPDANESEPPF ---
Anes - Initial Pre Proc Eval Procedure: Operation Date: 06/02/21 14:30 Proposed Procedures p Esophagogastroduodenoscopy & Colonoscopy - Angelito Paez MD Date/Time: 06/02/21 12:20 Surgeon: Kasey Sandra PA-C Pre Op Diagnosis: anemia Patient Data Age: 65 Gender: F Height: 1.68 m Weight: 88 kg Last Vital Signs Temp 36.7 C 06/02/21 06:00 Pulse 73 06/02/21 08:00 Resp 18 06/02/21 06:00 BP 136/78 06/02/21 06:00 Pulse Ox 100 06/02/21 06:00 Allergies Allergy/AdvReac Type Severity Reaction Status Date / Time meperidine Allergy Unknown Vomiting Verified 08/17/20 21:53 Penicillins Allergy Unknown Rash Verified 08/17/20 21:53 Home Medications Medication Instructions Recorded Confirmed Type fluoxetine 20 mg PO DAILY 08/17/20 05/31/21 History lamotrigine 150 mg PO HS 08/17/20 05/31/21 History levothyroxine 25 mcg PO DAILY 08/17/20 05/31/21 History lisinopril 40 mg PO DAILY 08/17/20 05/31/21 History meloxicam 15 mg PO HS 08/17/20 05/31/21 History simvastatin 40 mg PO HS 08/17/20 05/31/21 History ergocalciferol (vitamin D2) 1,250 mcg PO WEEKLY 08/18/20 05/31/21 History lithium carbonate 150 mg PO BID 05/31/21 05/31/21 History mupirocin 1 applic TOPICAL DAILY 05/31/21 05/31/21 History Laboratory Tests 06/01/21 06/02/21 06/02/21 18:15 00:08 04:20 WBC 6.3 K/mm3 K/mm3 (4.5-10.0) RBC 3.51 M/mm3 L M/mm3 (4.2-5.4) Hgb 8.6 g/dL L g/dL 8.6 g/dL L g/dL 8.7 g/dL L g/dL (12.0-15.0) (12.0-15.0) (12.0-15.0) Hct 29.8 % L % 30.1 % L % 29.3 % L % (37.0-47.0) (37.0-47.0) (37.0-47.0) MCV 83.5 fl fl (80-100) MCH 24.8 pg L pg (26-34) MCHC 29.7 g/dl L g/dl (32-36) RDW 17.2 % H % (11.5-14.5) Plt Count 357 k/mm3 k/mm3 (150-375) MPV 8.7 fl fl (7.4-10.4) Sodium Potassium Chloride Carbon Dioxide Anion Gap BUN Creatinine Estim Creat Clear Calc Estimated GFR Glucose Calcium 06/02/21 04:20 WBC RBC Hgb Hct MCV MCH MCHC RDW Plt Count MPV Sodium 139 mmol/L mmol/L (137-145) Potassium 4.0 mmol/L mmol/L (3.4-5.0) Chloride 108 mmol/L H mmol/L (98-107) Carbon Dioxide 27 mmol/L mmol/L (22-30) Anion Gap 4 mmol/L L mmol/L (8-16) BUN 13 mg/dL mg/dL (7-17) Creatinine 0.50 mg/dL L mg/dL (0.7-1.0) Estim Creat Clear Calc 106 ml/min ml/min Estimated GFR > 60 (59 - ) Glucose 95 mg/dL mg/dL (65-110) Calcium 8.7 mg/dL mg/dL (8.4-10.2) Patient hx anesthesia problems: none Family hx anesthesia problems: none Results Review: All pre-operative results and documents have been reviewed as part of the pre-operative evaluation. FOR[facility], LATER [facility] Past Medical History Medical History (Updated 06/02/21 @ 12:21 by Terrell Galvin MD) Anxiety Arthritis Bipolar disorder CVA (cerebral vascular accident) Depression Hip fracture, left 05/06/17 HTN (hypertension) Schizophrenia Seizures Surgical History Surgical History (Updated 06/01/21 @ 15:49 by Kasey Sandra PA-C) H/O inguinal hernia repair History of left knee replacement Family History Family History Mother Family history of heart disease in male family member before age 55 Father Acute myocardial infarction Other Diabetes mellitus Family history of malignant neoplasm Hypertension Social History Social History Smoking status: Never smoker Second hand tobacco smoke exposure: No Alcohol intake: never Substance use: never Substance use type: does not use Gender identity (if verbalized by the patient): Female Spiritual care concerns: No Anes - Eval Final Pr
[2021-06-02] MEDS: LACTATED RINGERS 1,000 ML 150 ML IV CONT (13:29)
--- NOTE | 2021-06-02 14:20 | SUR.OPER ---
EGD ENDED AT 1414, COLON BEGAN AT 1420.
[2021-06-02] MEDS: LITHIUM CARBONATE 150 MG CAPSULE PO (16:41)
--- NOTE | 2021-06-02 16:54 | PM.IMPN ---
Progress Note: A&P Assessment and Plan (1) Anemia: Qualifiers: Anemia type: unspecified type Qualified Code(s): D64.9 - Anemia, unspecified Code(s): D64.9 - Anemia, unspecified Status: Acute Assessment and Plan: Presented to ED after discovered anemia on outpatient labs. Hemoglobin 7.3 on presentation. Normocytic She was transfuse 2 units packed RBCs H&H is stabilized following transfusion. Hemoglobin 8.7 today Appreciate gastroenterology consultation Underwent EGD and colonoscopy today which revealed gastritis and internal hemorrhoids without NV evidence of bleeding Meloxicam on hold Protonix 40 mg b.i.d. Iron panel reviewed with decreased iron stores, B12 and folate within normal limits. (2) Status post left knee replacement: Code(s): Z96.652 - Presence of left artificial knee joint Status: Acute Assessment and Plan: Patient is s/p left knee replacement (date of surgery unknown-awaiting records) She had a wound VAC of the left knee which was removed 1 week ago. This was a disposable wound VAC to keep incision intact Has been evaluated by wound care. Continue Xeroform gauze to promote healing Appreciate PT/OT eval. Continue with weight-bearing status (3) HTN (hypertension): Code(s): I10 - Essential (primary) hypertension Status: Acute Assessment and Plan: Blood pressures reviewed and have been stable. Last BP 141/71 Continue lisinopril Monitor blood pressure trends (4) Bipolar disorder: Code(s): F31.9 - Bipolar disorder, unspecified Status: Acute Assessment and Plan: Stable, no acute issues Continue lithium Subjective Date/time seen: 06/02/21 16:54 Interval history: Date of service: 06/02/2021 Kelly Mcmahon is a 65-year-old female with a history of hypertension, anxiety, depression, bipolar disorder, seizure disorder, and recent left knee replacement who is seen in follow-up for acute anemia. The patient is a poor historian and is difficult to obtain clear history. She is feeling well today. Tolerated her EGD and colonoscopy. She has not had anything to eat since she has just returned but is feeling hungry and wants spaghetti. She denies abdominal pain. No nausea, vomiting, fever, chills, dizziness, lightheadedness, shortness of breath. Denies urinary symptoms. Review of Systems Review of Systems: All systems reviewed & are unremarkable except as noted in HPI and below Exam Narrative: General: Well-nourished, chronically ill-appearing 65 year-old female appearing slightly older than stated age, semi recumbent in bed, comfortable, NARD Neuro: awake, alert and oriented x4, speech clear, no focal neuro deficits noted HEENMT: normocephalic, atraumatic, EOMI, sclerae anicteric, moist oral mucosa Respiratory: clear to auscultation anteriorly, nonlabored breathing Cardio: regular rate, regular rhythm with S1-S2 Abdomen: nondistended, normoactive bowel sounds, soft, nontender to palpation, able to wiggle toes bilaterally, sensation intact Extremities: no edema, erythema, or tenderness to palpation, DP pulses 2+ bilaterally Skin: no rashes or lesions, warm and dry Psych: appropriate mood and affect, judgment and insight fair Objective Data Vital Signs Vital Signs: Vital Signs - 24 hr 06/01/21 20:00 06/01/21 21:07 06/01/21 21:43 Temperature 98.9 F Pulse Rate 73 71 Respiratory Rate 18 Blood Pressure 138/74 Pulse Oximetry 93 98 06/02/21 00:00 06/02/21 04:00 06/02/21 06:00 Temperature 98.0 F Pulse Rate 68 61 75 Respiratory Rate 18 Blood Pressure 136/78 Pulse Oximetry 100 06/02/21 08:00 06/02/21 12:00 06/02/21 13:35 Temperature 98.2 F Pulse Rate 73 91 86 Respiratory Rate 16 Blood Pressure 163/76 H Pulse Oximetry 99 06/02/21 14:42 06/02/21 14:52 06/02/21 15:02 Temperature Pulse Rate 72 78 70 Respiratory Rate 20 28 H 23 H Blood Pressure 113
[2021-06-02] MEDS: lamoTRIgine 50 MG TABLET 150 MG PO (20:43)
[2021-06-02] MEDS: CENTRAL LINE FLUSH 10 ML IV PUSH (20:43)
[2021-06-02] MEDS: SIMVASTATIN 20 MG TABLET 40 MG PO (20:44)
[2021-06-03 04:44] LABS: Hematocrit 27.6 % (37.0-47.0); Mean Corpuscular Hemoglobin 24.8 pg (26-34); Mean Corpuscular Volume 85.4 fl (80-100); Mean Platelet Volume 8.9 fl (7.4-10.4); Platelet Count Result 286 k/mm3 (150-375); Red Blood Count 3.23 M/mm3 (4.2-5.4); White Blood Count 5.6 K/mm3 (4.5-10.0)
[2021-06-03 04:59] LABS: Anion Gap 2 mmol/L (8-16); Blood Urea Nitrogen 13 mg/dL (7-17); Calcium 8.6 mg/dL (8.4-10.2); Carbon Dioxide 28 mmol/L (22-30); Chloride 110 mmol/L (98-107); Estimated CRCL calculation 90 ml/min; Estimated Glomerular Filt Rate > 60; Glucose 96 mg/dL (65-110); Potassium 3.5 mmol/L (3.4-5.0); Sodium 140 mmol/L (137-145)
[2021-06-03] MEDS: LEVOTHYROXINE SODIUM 25 MCG TABLET PO (05:35)
[2021-06-03] MEDS: CENTRAL LINE FLUSH 10 ML IV PUSH ×3 (05:35→20:19)
[2021-06-03 05:51] VITALS: BP 124/74; PULSE 67; RESP 18; TEMP 36.6; O2SAT 98
--- NOTE | 2021-06-03 06:37 | WPDGIPROGNO ---
Progress Note: A&P Assessment and Plan (1) Anemia: Qualifiers: Anemia type: unspecified type Qualified Code(s): D64.9 - Anemia, unspecified Code(s): D64.9 - Anemia, unspecified Status: Acute Assessment and Plan: Her anemia is presumably due to blood loss. We will schedule her for EGD and colonoscopy to be done tomorrow. I have discussed the procedures with her as well as a prep for colonoscopy and the risks such as the possibilities of bleeding, perforation, or even the need for surgery for complications. 06/03 She shows no evidence of gastrointestinal bleeding. Her hemoglobin is holding steady at 8. I will arrange for her to have a Cologuard test, because her long, redundant colon prevented visualization of the cecum and proximal ascending colon. There was otherwise no evidence of gastrointestinal source for her iron deficiency anemia . From my perspective she could be discharged today. (2) Seizures: Code(s): R56.9 - Unspecified convulsions Status: Acute Assessment and Plan: She has long history of seizures and is on medication for that. Subjective Date/time seen: 06/03/21 06:37 She shows no evidence of gastrointestinal bleeding. Her hemoglobin is holding steady at 8. I will arrange for her to have a Cologuard test, because her long, redundant colon prevented visualization of the cecum and proximal ascending colon. There was otherwise no evidence of gastrointestinal source for her iron deficiency anemia . Review of Systems Review of Systems: All systems reviewed & are unremarkable except as noted in HPI and below Exam Const: General: alert Orientation/consciousness: patient oriented x3 Resp: Auscultation: clear to auscultation bilaterally Cardio: Rhythm: regular rhythm GI: Inspection: normal to inspection GI Palp: No abdominal tenderness, Yes Soft to palpation and Yes No hepatosplenomegaly present Auscultation: normal bowel sounds Neuro: General: patient oriented x3 Objective Data Vital Signs Vital Signs: Vital Signs - 24 hr 06/02/21 08:00 06/02/21 12:00 06/02/21 13:35 Temperature 36.8 C Pulse Rate 73 91 86 Respiratory Rate 16 Blood Pressure 163/76 H Pulse Oximetry 99 06/02/21 14:42 06/02/21 14:52 06/02/21 15:02 Temperature Pulse Rate 72 78 70 Respiratory Rate 20 28 H 23 H Blood Pressure 113/66 134/75 141/71 H Pulse Oximetry 100 100 100 06/02/21 21:08 06/02/21 22:00 06/03/21 05:51 Temperature 37.1 C 36.6 C Pulse Rate 69 67 Respiratory Rate 18 18 Blood Pressure 144/75 H 124/74 Pulse Oximetry 99 98 98 Intake/Output Intake/Output: Intake & Output 05/31/21 06/01/21 06/02/21 06/03/21 23:59 23:59 23:59 23:59 Intake Total 350 3462 944 100 Output Total 502 4 Balance 350 2960 940 100 Meds/Results Medications: Active Medications Generic Name Dose Route Start Last Admin Trade Name Freq PRN Reason Stop Dose Admin Ergocalciferol 50,000 unit 06/07/21 09:00 Ergocalciferol 50,000 Unit Capsule PO Tu@0900 CANDICE Fluoxetine HCl 20 mg 06/01/21 09:00 06/02/21 08:41 Fluoxetine Hcl 20 Mg Capsule PO Not Given DAILY CANDICE Lamotrigine 150 mg 06/01/21 21:00 06/02/21 20:43 Lamotrigine 50 Mg Tablet PO 07/01/21 20:59 150 mg HS CANDICE Administration Levothyroxine Sodium 25 mcg 06/01/21 06:30 06/03/21 05:35 Levothyroxine Sodium 25 Mcg Tablet PO 25 mcg DAILY@0630 CANDICE Administration Lisinopril 40 mg 06/02/21 09:00 06/02/21 08:41 Lisinopril 20 Mg Tablet PO Not Given DAILY CANDICE [place] Carbonate 150 mg 06/01/21 09:00 06/02/21 16:41 [place] Carbonate 150 Mg Capsule PO 150 mg BID CANDICE Administration Pantoprazole Sodium 40 mg 06/01/21 21:00 06/02/21 20:43 Pantoprazole Sodium Iv 40 Mg Vial IV PUSH 40 mg Q12HR CANDICE Administration Simvastatin 40 mg 06/01/21 21:00 06/02/21 20:44 Simvastatin 20 Mg Tablet PO 40 mg HS CANDICE Administration Sodium Chloride
[2021-06-03] MEDS: PANTOPRAZOLE SODIUM IV 40 MG VIAL IV PUSH ×2 (08:58→20:18)
[2021-06-03] MEDS: FLUoxetine HCL 20 MG CAPSULE PO (08:59)
[2021-06-03] MEDS: LITHIUM CARBONATE 150 MG CAPSULE PO ×2 (08:59→18:11)
[2021-06-03] MEDS: lisinopriL 20 MG TABLET 40 MG PO (08:59)
[2021-06-03 11:42] LABS: Hemoglobin 8.7 g/dL (12.0-15.0)
--- NOTE | 2021-06-03 13:23 | WPDANESPN ---
Anes - Prog Note Post-Op Date/Time: 06/03/21 13:23 Cardiovascular status: other (anemia) Respiratory status: normal Airway patency: baseline Mental status: baseline Post-Op hydration status: normal Vital Signs: Last Vital Signs Temp 97.8 F 06/03/21 05:51 Pulse 67 06/03/21 05:51 Resp 18 06/03/21 05:51 BP 124/74 06/03/21 05:51 Pulse Ox 98 06/03/21 05:51 Pain Score (VAS): 02/14 I/O: Intake & Output 06/02/21 06/03/21 06/03/21 23:59 07:59 15:59 Intake Total 441 545 0889 Output Total 1 Balance 341 557 6783 Laboratory Tests 06/03/21 11:38 06/03/21 04:32 06/03/21 06/03/21 06/03/21 04:32 04:32 11:38 WBC 5.6 RBC 3.23 L Hgb 8.0 L 8.7 L Hct 27.6 L 30.0 L MCV 85.4 MCH 24.8 L MCHC 29.0 L RDW 17.0 H Plt Count 286 MPV 8.9 Sodium 140 Potassium 3.5 Chloride 110 H Carbon Dioxide 28 Anion Gap 2 L BUN 13 Creatinine 0.60 L Estim Creat Clear Calc 90 Estimated GFR > 60 Glucose 96 Calcium 8.6 Patient Feedback: Patient satisfied with anesthetic care.
[2021-06-03 14:00] VITALS: BP 123/70; PULSE 69; RESP 18; TEMP 36.8; O2SAT 98
--- NOTE | 2021-06-03 15:50 | PM.IMPN ---
Progress Note: A&P Assessment and Plan (1) Anemia: Qualifiers: Anemia type: iron deficiency Iron deficiency anemia type: unspecified iron deficiency Qualified Code(s): D50.9 - Iron deficiency anemia, unspecified Code(s): D64.9 - Anemia, unspecified Status: Acute Assessment and Plan: Presented to ED after discovered anemia on outpatient labs. Hemoglobin 7.3 on presentation. Normocytic She was transfuse 2 units packed RBCs H&H stabilized following transfusion. Hemoglobin 8.7 today Appreciate gastroenterology consultation Underwent EGD and colonoscopy 06/02 which revealed gastritis and internal hemorrhoids without any evidence of bleeding Meloxicam will be discontinued Protonix 40 mg b.i.d. Iron panel reviewed with decreased iron stores, B12 and folate within normal limits. Begin oral iron supplementation She will need to follow up with GI for Cologuard testing as the cecum could not be reached on colonoscopy (2) Status post left knee replacement: Code(s): Z96.652 - Presence of left artificial knee joint Status: Acute Assessment and Plan: Patient is s/p left knee replacement (date of surgery unknown-awaiting records) She had a wound VAC of the left knee which was removed 1 week ago. This was a disposable wound VAC to keep incision intact Has been evaluated by wound care. Continue Xeroform gauze to promote healing Appreciate PT/OT eval. Continue with weight-bearing status Planning for discharge back to SNF. Awaiting insurance authorization (3) HTN (hypertension): Code(s): I10 - Essential (primary) hypertension Status: Acute Assessment and Plan: Blood pressures reviewed and have been stable. Last BP 123/70 Continue lisinopril Monitor blood pressure trends (4) Bipolar disorder: Code(s): F31.9 - Bipolar disorder, unspecified Status: Acute Assessment and Plan: Stable, no acute issues Continue lithium Subjective Date/time seen: 06/03/21 15:50 Interval history: Date of service: 06/03/2021 Kelly Mcmahon is a 65-year-old female with a history of hypertension, anxiety, depression, bipolar disorder, seizure disorder, and recent left knee replacement who is seen in follow-up for acute anemia. The patient is a poor historian and is difficult to obtain clear history. she feels well today. She states her bottom is sore from her colonoscopy yesterday. She has had a bowel movement today. She has not noticed any blood in her stools. Her appetite is good. She denies nausea, vomiting, fever, or chills. No shortness of breath. She has no additional concerns. Review of Systems Review of Systems: All systems reviewed & are unremarkable except as noted in HPI and below Exam Narrative: General: Well-nourished, chronically ill-appearing 65 year-old female appearing slightly older than stated age, semi recumbent in bed, comfortable, NARD Neuro: awake, alert and oriented x4, speech clear, no focal neuro deficits noted HEENMT: normocephalic, atraumatic, EOMI, sclerae anicteric, moist oral mucosa Respiratory: clear to auscultation anteriorly, nonlabored breathing Cardio: regular rate, regular rhythm with S1-S2 Abdomen: nondistended, normoactive bowel sounds, soft, nontender to palpation Extremities: no edema, erythema, or tenderness to palpation Skin: no rashes or lesions, warm and dry Psych: appropriate mood and affect, judgment and insight fair Objective Data Vital Signs Vital Signs: Vital Signs - 24 hr 06/02/21 21:08 06/02/21 22:00 06/03/21 05:51 Temperature 98.8 F 97.8 F Pulse Rate 69 67 Respiratory Rate 18 18 Blood Pressure 144/75 H 124/74 Pulse Oximetry 99 98 98 06/03/21 14:00 Temperature 98.2 F Pulse Rate 69 Respiratory Rate 18 Blood Pressure 123/70 Pulse Oximetry 98 Intake/Output Intake/Output: Intake & Output 05/31/21 06/01/21 06/02/21 06/03/21 23:59 23:59 23:59 23:59 Intake
[2021-06-03] MEDS: FERROUS SULFATE 324 MG TABLET PO (18:11)
[2021-06-03] MEDS: SIMVASTATIN 20 MG TABLET 40 MG PO (20:18)
[2021-06-03] MEDS: lamoTRIgine 50 MG TABLET 150 MG PO (20:18)
[2021-06-03 22:00] VITALS: BP 129/70; PULSE 64; RESP 16; TEMP 37; O2SAT 98
[2021-06-04] MEDS: CENTRAL LINE FLUSH 10 ML IV PUSH ×3 (05:08→20:03)
[2021-06-04] MEDS: LEVOTHYROXINE SODIUM 25 MCG TABLET PO (05:09)
[2021-06-04 05:18] LABS: Hematocrit 28.9 % (37.0-47.0); Hemoglobin 8.3 g/dL (12.0-15.0)
[2021-06-04 06:00] VITALS: BP 133/71; PULSE 65; RESP 16; TEMP 36.8; O2SAT 98
[2021-06-04] MEDS: PANTOPRAZOLE SODIUM IV 40 MG VIAL IV PUSH ×2 (08:09→20:02)
[2021-06-04] MEDS: LITHIUM CARBONATE 150 MG CAPSULE PO ×2 (08:10→17:03)
[2021-06-04] MEDS: FLUoxetine HCL 20 MG CAPSULE PO (08:10)
[2021-06-04] MEDS: FERROUS SULFATE 324 MG TABLET PO ×2 (08:10→17:03)
[2021-06-04] MEDS: lisinopriL 20 MG TABLET 40 MG PO (08:10)
[2021-06-04 13:38] VITALS: O2SAT 98
[2021-06-04 14:00] VITALS: BP 129/58; PULSE 71; RESP 22; TEMP 37.7; O2SAT 97
--- NOTE | 2021-06-04 15:52 | PM.IMPN ---
Progress Note: A&P Assessment and Plan (1) Anemia: Qualifiers: Anemia type: iron deficiency Iron deficiency anemia type: unspecified iron deficiency Qualified Code(s): D50.9 - Iron deficiency anemia, unspecified Code(s): D64.9 - Anemia, unspecified Status: Acute Assessment and Plan: Presented to ED after discovered anemia on outpatient labs. Hemoglobin 7.3 on presentation. Normocytic She was transfused 2 units packed RBCs H&H stabilized following transfusion. Hemoglobin 8.3 today She was seen in consultation by Gastroenterology Underwent EGD and colonoscopy 06/02 which revealed gastritis and internal hemorrhoids without any evidence of bleeding Meloxicam discontinued Protonix 40 mg b.i.d. Iron panel reviewed with decreased iron stores, B12 and folate within normal limits. Continue oral iron supplementation She will need to follow up with GI for Cologuard testing as the cecum could not be reached on colonoscopy (2) Status post left knee replacement: Code(s): Z96.652 - Presence of left artificial knee joint Status: Acute Assessment and Plan: Patient is s/p left knee replacement (date of surgery unknown-awaiting records) She had a wound VAC of the left knee which was removed 1 week ago. This was a disposable wound VAC to keep incision intact Has been evaluated by wound care. Continue Xeroform gauze to promote healing Appreciate PT/OT eval. Continue with weight-bearing status Planning for discharge back to SNF. Awaiting insurance authorization (3) HTN (hypertension): Code(s): I10 - Essential (primary) hypertension Status: Acute Assessment and Plan: Blood pressures reviewed and have been stable. Last BP 133/71 Continue lisinopril Monitor blood pressure trends (4) Bipolar disorder: Code(s): F31.9 - Bipolar disorder, unspecified Status: Acute Assessment and Plan: Stable, no acute issues Continue lithium Subjective Date/time seen: 06/04/21 15:52 Interval history: Date of service: 06/03/2021 Kelly Mcmahon is a 65-year-old female with a history of hypertension, anxiety, depression, bipolar disorder, seizure disorder, and recent left knee replacement who is seen in follow-up for acute anemia. The patient is a poor historian and is difficult to obtain clear history. She has no complaints today. Eating well. Getting around well. Awaiting insurance authorization for discharge Review of Systems Review of Systems: All systems reviewed & are unremarkable except as noted in HPI and below Exam Narrative: General: Well-nourished, chronically ill-appearing 65 year-old female appearing slightly older than stated age, semi recumbent in bed, comfortable, NARD Neuro: awake, alert, answers all questions appropriately, speech clear, no focal neuro deficits noted HEENMT: normocephalic, atraumatic, EOMI, sclerae anicteric, moist oral mucosa Respiratory: clear to auscultation anteriorly, nonlabored breathing Cardio: regular rate, regular rhythm with S1-S2 Abdomen: nondistended, normoactive bowel sounds, soft, nontender to palpation Extremities: no edema, erythema, or tenderness to palpation Skin: no rashes or lesions, warm and dry Psych: appropriate mood and affect, judgment and insight fair Objective Data Vital Signs Vital Signs: Vital Signs - 24 hr 06/03/21 22:00 06/04/21 06:00 06/04/21 13:38 Temperature 98.6 F 98.3 F Pulse Rate 64 65 Respiratory Rate 16 16 Blood Pressure 129/70 133/71 Pulse Oximetry 98 98 98 Intake/Output Intake/Output: Intake & Output 06/01/21 06/02/21 06/03/21 06/04/21 23:59 23:59 23:59 23:59 Intake Total 3462 944 1944 1190 Output Total 502 4 Balance 2960 940 1944 1190 Meds/Results Medications: Active Medications Generic Name Dose Route Start Last Admin Trade Name Freq PRN Reason Stop Dose Admin Ergocalciferol 50,000 unit 06/07/21 09:00 Ergocalcifero
[2021-06-04] MEDS: SIMVASTATIN 20 MG TABLET 40 MG PO (20:02)
[2021-06-04] MEDS: lamoTRIgine 50 MG TABLET 150 MG PO (20:02)
[2021-06-04 22:00] VITALS: BP 124/71; PULSE 68; RESP 20; TEMP 37.2; O2SAT 99
[2021-06-05] MEDS: CENTRAL LINE FLUSH 10 ML IV PUSH ×3 (05:54→21:34)
[2021-06-05] MEDS: LEVOTHYROXINE SODIUM 25 MCG TABLET PO (05:54)
[2021-06-05 06:00] VITALS: BP 128/105; PULSE 67; RESP 20; TEMP 36.9; O2SAT 99
[2021-06-05 06:07] LABS: Hematocrit 29.3 % (37.0-47.0); Hemoglobin 8.6 g/dL (12.0-15.0)
[2021-06-05] MEDS: lisinopriL 20 MG TABLET 40 MG PO (08:36)
[2021-06-05] MEDS: FLUoxetine HCL 20 MG CAPSULE PO (08:37)
[2021-06-05] MEDS: FERROUS SULFATE 324 MG TABLET PO ×2 (08:37→17:21)
[2021-06-05] MEDS: LITHIUM CARBONATE 150 MG CAPSULE PO ×2 (08:37→17:21)
[2021-06-05] MEDS: PANTOPRAZOLE SODIUM IV 40 MG VIAL IV PUSH ×2 (08:37→21:32)
--- NOTE | 2021-06-05 13:36 | PM.IMPN ---
Progress Note: A&P Assessment and Plan (1) Anemia: Qualifiers: Anemia type: iron deficiency Iron deficiency anemia type: unspecified iron deficiency Qualified Code(s): D50.9 - Iron deficiency anemia, unspecified Code(s): D64.9 - Anemia, unspecified Status: Acute Assessment and Plan: Presented to ED after discovered anemia on outpatient labs. Hemoglobin 7.3 on presentation. Normocytic She was transfused 2 units packed RBCs H&H stabilized following transfusion. Hemoglobin 8.6 today She was seen in consultation by Gastroenterology Underwent EGD and colonoscopy 06/02 which revealed gastritis and internal hemorrhoids without any evidence of bleeding Meloxicam discontinued Protonix 40 mg b.i.d. Iron panel reviewed with decreased iron stores, B12 and folate within normal limits. Continue oral iron supplementation She will need to follow up with GI for Cologuard testing as the cecum could not be reached on colonoscopy (2) Status post left knee replacement: Code(s): Z96.652 - Presence of left artificial knee joint Status: Acute Assessment and Plan: Patient is s/p left knee replacement (date of surgery unknown-awaiting records) She had a wound VAC of the left knee which was removed 1 week ago. This was a disposable wound VAC to keep incision intact Has been evaluated by wound care. Continue Xeroform gauze to promote healing Appreciate PT/OT eval. Continue with weight-bearing status Planning for discharge back to SNF. Awaiting insurance authorization (3) HTN (hypertension): Code(s): I10 - Essential (primary) hypertension Status: Acute Assessment and Plan: Blood pressures reviewed and have been stable. Continue lisinopril Monitor blood pressure trends (4) Bipolar disorder: Code(s): F31.9 - Bipolar disorder, unspecified Status: Acute Assessment and Plan: Stable, no acute issues Continue lithium Subjective Date/time seen: 06/05/21 13:36 Interval history: Date of service: 06/05/2021 Kelly Mcmahon is a 65-year-old female with a history of hypertension, anxiety, depression, bipolar disorder, seizure disorder, and recent left knee replacement who is seen in follow-up for acute anemia. The patient is a poor historian and is difficult to obtain clear history. She is feeling well today and offers no complaints. She had a good breakfast. She has been participating in therapy. Reports she had a bowel movement last night. Denies nausea, vomiting, abdominal pain, fever, chills, shortness breath, cough, chest pain. Review of Systems Review of Systems: All systems reviewed & are unremarkable except as noted in HPI and below Exam Narrative: General: Well-nourished, chronically ill-appearing 65 year-old female appearing slightly older than stated age, semi recumbent in bed, comfortable, NARD Neuro: awake, alert, answers all questions appropriately, speech clear, no focal neuro deficits noted HEENMT: normocephalic, atraumatic, EOMI, sclerae anicteric, moist oral mucosa Respiratory: clear to auscultation anteriorly, nonlabored breathing Cardio: regular rate, regular rhythm with S1-S2 Abdomen: nondistended, normoactive bowel sounds, soft, nontender to palpation Extremities: no edema, erythema, or tenderness to palpation Skin: no rashes or lesions, warm and dry Psych: appropriate mood and affect, judgment and insight fair Objective Data Vital Signs Vital Signs: Vital Signs - 24 hr 06/04/21 13:38 06/04/21 14:00 06/04/21 22:00 Temperature 99.8 F H 98.9 F Pulse Rate 71 68 Respiratory Rate 22 H 20 Blood Pressure 129/58 L 124/71 Pulse Oximetry 98 97 99 06/05/21 06:00 Temperature 98.4 F Pulse Rate 67 Respiratory Rate 20 Blood Pressure 128/105 H Pulse Oximetry 99 Intake/Output Intake/Output: Intake & Output 06/02/21 06/03/21 06/04/21 06/05/21 23:59 23:59 23:59 23:59 Intake Total 285 9904 832
[2021-06-05 14:10] VITALS: BP 125/58; PULSE 71; RESP 20; TEMP 36.6; O2SAT 98
[2021-06-05 16:44] LABS: Add Urine Microscopic? YES; Amorphous Sediment Urine Few; Appearance Urine Cloudy (Clear); Bacteria Urine Trace /hpf; Bilirubin Urine Negative (Negative); Blood Urine Negative (Negative); Glucose Urine UA Negative (Negative); Ketones Urine Negative (Negative); Leukocyte Esterase Ur 1+ LEU/UL (Negative); Mucus Urine Rare /lpf; Nitrate Urine Negative (Negative); Protein Urine 1+ mg/dL (Negative); Specific Grav Ur 1.015 (1.001-1.035); Squamous Epithelial Cell Urine Rare /hpf (Few); Urobilinogen Urine Negative mg/dL (<2.0); WBC Urine 0-3 /hpf
[2021-06-05 16:45] LABS: Color Urine Yellow (Yellow)
[2021-06-05] MEDS: lamoTRIgine 50 MG TABLET 150 MG PO (21:33)
[2021-06-05] MEDS: SIMVASTATIN 20 MG TABLET 40 MG PO (21:33)
[2021-06-05 22:00] VITALS: BP 100/64; PULSE 66; RESP 16; TEMP 37; O2SAT 98
[2021-06-06] MEDS: LEVOTHYROXINE SODIUM 25 MCG TABLET PO (05:34)
[2021-06-06] MEDS: CENTRAL LINE FLUSH 10 ML IV PUSH ×3 (05:34→21:37)
[2021-06-06 05:44] LABS: Hematocrit 30.4 % (37.0-47.0); Hemoglobin 8.6 g/dL (12.0-15.0)
[2021-06-06 06:00] VITALS: BP 137/69; PULSE 67; RESP 18; TEMP 36.1; O2SAT 98
--- NOTE | 2021-06-06 07:01 | WPDGIPROGNO ---
Progress Note: A&P Assessment and Plan (1) Anemia: Qualifiers: Anemia type: iron deficiency Iron deficiency anemia type: unspecified iron deficiency Qualified Code(s): D50.9 - Iron deficiency anemia, unspecified Code(s): D64.9 - Anemia, unspecified Status: Acute Assessment and Plan: Her anemia is presumably due to blood loss. We will schedule her for EGD and colonoscopy to be done tomorrow. I have discussed the procedures with her as well as a prep for colonoscopy and the risks such as the possibilities of bleeding, perforation, or even the need for surgery for complications. 06/03 She shows no evidence of gastrointestinal bleeding. Her hemoglobin is holding steady at 8. I will arrange for her to have a Cologuard test, because her long, redundant colon prevented visualization of the cecum and proximal ascending colon. There was otherwise no evidence of gastrointestinal source for her iron deficiency anemia . From my perspective she could be discharged today. 06/06 she tells me that she actually has done a Cologuard test in the recent past. She remembers her sister assisting her with it. It was mailed in. She states that she was never given results. She does not know who was the attending physician who helped arrange it. her hemoglobin remains stable. From my perspective she can be transferred or discharged. I believe that she is simply waiting for a bed. (2) Seizures: Code(s): R56.9 - Unspecified convulsions Status: Acute Assessment and Plan: She has long history of seizures and is on medication for that. Subjective Date/time seen: 06/06/21 07:01 she shows no evidence of bleeding. She is comfortable. She is anticipating being transferred today. I discussed with her getting a Cologuard test she told me that she actually has done 1 but never did get the results. We will try to find out who the provider was that had ordered it. Review of Systems Review of Systems: All systems reviewed & are unremarkable except as noted in HPI and below Exam Const: General: alert Orientation/consciousness: patient oriented x3 Resp: Auscultation: clear to auscultation bilaterally Cardio: Rhythm: regular rhythm GI: Inspection: normal to inspection Auscultation: normal bowel sounds Neuro: General: patient oriented x3 Objective Data Vital Signs Vital Signs: Vital Signs - 24 hr 06/05/21 14:10 06/05/21 22:00 06/06/21 06:00 Temperature 36.6 C 37.0 C 36.1 C L Pulse Rate 71 66 67 Respiratory Rate 20 16 18 Blood Pressure 125/58 L 100/64 137/69 Pulse Oximetry 98 98 98 Intake/Output Intake/Output: Intake & Output 06/03/21 06/04/21 06/05/21 06/06/21 23:59 23:59 23:59 23:59 Intake Total 1943 1830 1470 440 Balance 1943 1830 1470 440 Meds/Results Medications: Active Medications Generic Name Dose Route Start Last Admin Trade Name Deionq PRN Reason Stop Dose Admin Ergocalciferol 50,000 unit 06/07/21 09:00 Ergocalciferol 50,000 Unit Capsule PO Tu@0900 CANDICE Ferrous Sulfate 324 mg 06/03/21 17:00 06/05/21 17:21 Ferrous Sulfate 324 Mg Tablet PO 324 mg BIDWM CANDICE Administration Fluoxetine HCl 20 mg 06/01/21 09:00 06/05/21 08:37 Fluoxetine Hcl 20 Mg Capsule PO 20 mg DAILY CANDICE Administration Lamotrigine 150 mg 06/01/21 21:00 06/05/21 21:33 Lamotrigine 50 Mg Tablet PO 07/01/21 20:59 150 mg HS CANDICE Administration Levothyroxine Sodium 25 mcg 06/01/21 06:30 06/06/21 05:34 Levothyroxine Sodium 25 Mcg Tablet PO 25 mcg DAILY@0630 CANDICE Administration Lisinopril 40 mg 06/02/21 09:00 06/05/21 08:36 Lisinopril 20 Mg Tablet PO 40 mg DAILY CANDICE Administration [place] Carbonate 150 mg 06/01/21 09:00 06/05/21 17:21 [place] Carbonate 150 Mg Capsule PO 150 mg BID CANDICE Administration Pantoprazole Sodium 40 mg 06/01/21 21:00 06/05/21 21:32 Pantoprazole Sodium Iv 40 Mg Vial IV PUSH 40 mg Q12HR CANDICE Admi
[2021-06-06] MEDS: lisinopriL 20 MG TABLET 40 MG PO (09:35)
[2021-06-06] MEDS: PANTOPRAZOLE SODIUM IV 40 MG VIAL IV PUSH ×2 (09:35→21:37)
[2021-06-06] MEDS: FLUoxetine HCL 20 MG CAPSULE PO (09:35)
[2021-06-06] MEDS: FERROUS SULFATE 324 MG TABLET PO ×2 (09:36→16:46)
[2021-06-06] MEDS: LITHIUM CARBONATE 150 MG CAPSULE PO ×2 (09:36→16:46)
[2021-06-06 14:00] VITALS: BP 106/68; PULSE 77; RESP 20; TEMP 36.6; O2SAT 97
--- NOTE | 2021-06-06 17:20 | PM.IMPN ---
Progress Note: A&P Assessment and Plan (1) Anemia: Qualifiers: Anemia type: iron deficiency Iron deficiency anemia type: unspecified iron deficiency Qualified Code(s): D50.9 - Iron deficiency anemia, unspecified Code(s): D64.9 - Anemia, unspecified Status: Acute Assessment and Plan: Presented to ED after she was found to be anemic on outpatient labs. Hemoglobin 7.3 on presentation. Normocytic She was transfused 2 units packed RBCs H&H stabilized following transfusion. Hemoglobin 8.6 today She was seen in consultation by Gastroenterology Underwent EGD and colonoscopy 06/02 which revealed gastritis and internal hemorrhoids without any evidence of bleeding Meloxicam discontinued Protonix 40 mg b.i.d. Iron panel reviewed with decreased iron stores, B12 and folate within normal limits. Continue oral iron supplementation She will need to follow up with GI for Cologuard testing as the cecum could not be reached on colonoscopy (2) Status post left knee replacement: Code(s): Z96.652 - Presence of left artificial knee joint Status: Acute Assessment and Plan: Patient is s/p left knee replacement (date of surgery unknown-awaiting records) She had a wound VAC of the left knee which was removed 1 week ago. This was a disposable wound VAC to keep incision intact Has been evaluated by wound care. Continue Xeroform gauze to promote healing Appreciate PT/OT eval. Continue with weight-bearing status 06/06: Per RN who had discussion with patients orthopedic surgeon, patient is supposed to be on vancomycin for unclear reasons. No evidence of infection present, perhaps history of infection that has not been reported. RN to confirm Vancomycin dosing with half-way and this will be resumed as appropriate. Planning for discharge back to SNF. Awaiting insurance authorization (3) HTN (hypertension): Code(s): I10 - Essential (primary) hypertension Status: Acute Assessment and Plan: Blood pressures reviewed and have been stable. Continue lisinopril Monitor blood pressure trends (4) Bipolar disorder: Code(s): F31.9 - Bipolar disorder, unspecified Status: Acute Assessment and Plan: Stable, no acute issues Continue lithium Subjective Date/time seen: 06/06/21 17:20 Interval history: Date of service: 06/06/2021 Kelly Mcmahon is a 65-year-old female with a history of hypertension, anxiety, depression, bipolar disorder, seizure disorder, and recent left knee replacement who is seen in follow-up for acute anemia. She is awaiting insurance authorization for placement for several days. She feels well and has no complaints.Shedenies any episodes of bleeding. Reports regular bowel movements. Denies urinary symptoms. Denies knee pain. No drainage from incision. No fevers or chills. Appetite is good. Review of Systems Review of Systems: All systems reviewed & are unremarkable except as noted in HPI and below Exam Narrative: General: Well-nourished, chronically ill-appearing 65 year-old female appearing slightly older than stated age, sitting up in a chair eating lunch, comfortable, NARD Neuro: awake, alert, answers all questions appropriately, speech clear, no focal neuro deficits noted HEENMT: normocephalic, atraumatic, EOMI, sclerae anicteric, moist oral mucosa Respiratory: clear to auscultation anteriorly, nonlabored breathing Cardio: regular rate, regular rhythm with S1-S2 Abdomen: nondistended, normoactive bowel sounds, soft, nontender to palpation Extremities: no edema, erythema, or tenderness to palpation Skin: no rashes or lesions, warm and dry Psych: appropriate mood and affect, judgment and insight fair Objective Data Vital Signs Vital Signs: Vital Signs - 24 hr 06/05/21 22:00 06/06/21 06:00 06/06/21 14:00 Temperature 98.6 F 97.0 F L 97.9 F Pulse Rate 66 67 77 Respiratory Rate 16 18 20 Blood Pressure 100/64 137/6
[2021-06-06 20:10] VITALS: O2SAT 97
[2021-06-06] MEDS: SIMVASTATIN 20 MG TABLET 40 MG PO (21:37)
[2021-06-06] MEDS: lamoTRIgine 50 MG TABLET 150 MG PO (21:37)
[2021-06-06 22:00] VITALS: BP 132/60; PULSE 68; RESP 14; TEMP 36.5; O2SAT 99
[2021-06-07] MEDS: CENTRAL LINE FLUSH 10 ML IV PUSH (05:18)
[2021-06-07] MEDS: LEVOTHYROXINE SODIUM 25 MCG TABLET PO (05:18)
[2021-06-07 05:29] LABS: Hematocrit 31.4 % (37.0-47.0); Hemoglobin 8.8 g/dL (12.0-15.0)
[2021-06-07 06:00] VITALS: BP 141/68; PULSE 65; RESP 16; TEMP 36.9; O2SAT 99
[2021-06-07 08:00] VITALS: PULSE 65; RESP 16; O2SAT 99
[2021-06-07] MEDS: FERROUS SULFATE 324 MG TABLET PO (09:08)
[2021-06-07] MEDS: FLUoxetine HCL 20 MG CAPSULE PO (09:08)
[2021-06-07] MEDS: ERGOCALCIFEROL 50,000 UNIT CAPSULE 50000 UNITS PO (09:08)
[2021-06-07] MEDS: lisinopriL 20 MG TABLET 40 MG PO (09:08)
[2021-06-07] MEDS: PANTOPRAZOLE SODIUM IV 40 MG VIAL IV PUSH (09:08)
[2021-06-07] MEDS: LITHIUM CARBONATE 150 MG CAPSULE PO (09:08)
--- NOTE | 2021-06-07 09:37 | PCNWS ---
Weekly nutritional screen. Patient is tolerating current diet which is regular. Intake is adequate at 100% of meals. No weight loss reported. No nutritional needs at this time.
--- NOTE | 2021-06-07 13:54 | PM.DS ---
DS: Admitting Diagnosis Discharge Date 06/07/2021 Admitting Diagnosis Anemia DS: Discharge Diagnosis Discharge Diagnosis (1) Anemia: Qualifiers: Anemia type: iron deficiency Iron deficiency anemia type: unspecified iron deficiency Qualified Code(s): D50.9 - Iron deficiency anemia, unspecified Code(s): D64.9 - Anemia, unspecified Status: Acute Assessment and Plan: Presented to ED after she was found to be anemic on outpatient labs. Hemoglobin 7.3 on presentation. Normocytic She was transfused 2 units packed RBCs H&H stabilized following transfusion and has remained stable throughout course of hospitalization She was seen in consultation by Gastroenterology Underwent EGD and colonoscopy 06/02 which revealed gastritis and internal hemorrhoids without any evidence of bleeding Meloxicam discontinued Continue pantoprazole 40 mg daily Iron panel reviewed with decreased iron stores, B12 and folate within normal limits. Continue oral iron supplementation She will need to follow up with GI for Cologuard testing as the cecum could not be reached on colonoscopy (2) Status post left knee replacement: Code(s): Z96.652 - Presence of left artificial knee joint Status: Acute Assessment and Plan: Patient is s/p left knee replacement (date of surgery unknown-awaiting records) She had a wound VAC of the left knee which was removed 1 week ago. This was a disposable wound VAC to keep incision intact. She was evaluated by wound care. Continue Xeroform gauze to promote healing Participated in PT/OT during hospitalization. Continue with weight-bearing status 06/06: Per RN who had discussion with patients orthopedic surgeon, patient is supposed to be on vancomycin for unclear reasons. Not informed of this on patients admission. No evidence of infection present, perhaps history of infection that has not been reported. RN confirmed Vancomycin dosing with [facility] and this was resumed. She has outpatient orthopedic follow-up on 06/10/2021 Update: After the patient left the facility, I received a phone call from Infectious Disease BRAKE HOLDER at [facility] with questions regarding the patient's vancomycin dose. She informed me that patient has been on vancomycin due to recent history of osteomyelitis of left knee. Inquired about patient's most recent WBC, platelets, and ANC. Inquired about most recent dose of vancomycin. She will contact patient's nursing facility for further orders. Patient will follow-up with ID as an outpatient. (3) HTN (hypertension): Code(s): I10 - Essential (primary) hypertension Status: Acute Assessment and Plan: Blood pressures reviewed and remain stable during admission. Continue lisinopril (4) Bipolar disorder: Code(s): F31.9 - Bipolar disorder, unspecified Status: Acute Assessment and Plan: Stable, no acute issues Continue lithium DS: Summary Hospital Course Hospital Course: Date of admission: 05/31/2021 Date of discharge: 06/07/2021 Kelly Mcmahon is a 65-year-old female with a history of hypertension, anxiety, depression, bipolar disorder, seizure disorder, and recent left knee replacement who presented to the emergency department on 05/31/2021 after having outpatient labs done 2 days prior which revealed low hemoglobin. On presentation to the ED, her vital signs were stable, hemoglobin 7.3, hematocrit 26.0. She was admitted to the hospitalist service for further evaluation management was seen in consultation by Gastroenterology. Please see above for further details. She underwent EGD and colonoscopy and will proceed with Cologuard testing as an outpatient. Her H&H stabilized following transfusion and she had no evidence of bleeding. The patient was back to her baseline state of health. Given overall improvement, she was determined to no longer require inpatient care and was discharged in hemodynamically stable condit
== END 2021-06-07 15:17 | disposition home or self-care (01) ==
LOC: ANHED 19:35 → ANH3MEDSUR 20:11
PROVIDERS: Emergency Medicine; Internal Medicine Gastroenterology; Physician Assistant; Admitting Provider Internal Medicine; Emergency Provider Emergency Medicine; PCP Family Medicine; Visit Provider Internal Medicine
PROC: 0DJ08ZZ Inspection of Upper Intestinal Tract, Via Natural or Artificial Opening Endoscopic (ICD-10-PCS; CPT 43235; principal; 2021-06-02 14:30)
DX: D50.9 Iron deficiency anemia, unspecified (principal); K64.8 Other hemorrhoids; K21.9 Gastro-esophageal reflux disease without esophagitis; K29.70 Gastritis, unspecified, without bleeding; G40.909 Epilepsy, unspecified, not intractable, without status epilepticus; F31.9 Bipolar disorder, unspecified; Z96.652 Presence of left artificial knee joint; I10 Essential (primary) hypertension
CPT/HCPCS: 45378; 43239; 36415; 36430; 71045; 80048; 80053; 81001; 81003; 82607; 82728; 82746; 83540; 83550; 85014; 85018; 85025; 85027; 86850; 86900; 86901; 86920; 87081; 88305; 93005; 96374; 96376; 97110; 97161; 97165; 97530; 97535; 99285; A9270; C9113; G0378; J2704; J3370; J7050; J7120; P9016

== ENCOUNTER 2022-01-28 06:21 | Inpatient (IN) | payer OTHER, SELFPAY ==
[2022-01-28] VITALS (10 sets, daily range): BP systolic 118–153; BP diastolic 66–98; PULSE 60–100; RESP 14–20; TEMP 36.3–37.2; O2SAT 95–100; BMI 25.4
--- NOTE | ~2022-01-28 | XR_ITS ---
EXAMINATION: XR abdomen NG/feed tube insert DATE: 01/28/2022 22:37 INDICATION: Nasogastric tube placement TECHNIQUE: A supine view of the abdomen and lower chest was obtained for evaluation of feeding tube placement. COMPARISON: CT dated 01/28/2022 FINDINGS: Nasal gastric tube tip and proximal side port in the body the stomach multiple gas-filled but not fra nkly dilated loops of large and small bowel in the visualized abdomen which could be due to ileus or mild/partial small bowel obstruction. Lung bases are clear. Heart size is normal. Severe lumbar spond ylosis. IMPRESSION: 1. Nasogastric tube in the stomach. Reviewed, dictated and finalized at location A. EMIC ADVISEMENT DIRECTOR
--- NOTE | ~2022-01-28 | CT_ITS ---
EXAMINATION: CT abdomen pelvis w con DATE: 01/28/2022 08:31 INDICATION: Left lower quadrant tenderness TECHNIQUE: Computed tomography (CT) of the abdomen and pelvis was performed with 100 mL Omnipaque-350 intravenous contrast. Automated exposure control and iterative reconstruction technique were employe d. The dose-length product was 1180.25 mGy-cm. COMPARISON: 05/25/2015 FINDINGS: Patchy groundglass opacities in the bilateral lower lung zones with appearance suspicious for aspirat ion or pneumonia. Borderline heart size. Atherosclerotic coronary artery calcifications. No pericardi al or pleural effusion. Mild intra and extra hepatic biliary ductal dilation which is within normal l imits post cholecystectomy with surgical clips at the gallbladder fossa. Multiple small splenic calci fic lesions consistent with old granulomatous disease. Pancreas and right adrenal gland are normal. 1 .2 cm left adrenal nodule which in the absence of known malignancy is most likely an adenoma. Bilater al renal cysts, the largest on the right measuring 2.0 cm. Multiple mildly dilated loops of gas and f luid-filled small bowel. The proximal and distal small bowel are relatively decompressed however a di screte transition point is not identified. There is additional fluid in the colon consistent with aparna rrhea. Normal appendix. Bladder, uterus and bilateral adnexa are normal. No free intraperitoneal gas or fluid. No pathologically enlarged abdominal or pelvic lymphadenopathy. L5 spondylolysis with bilat eral pars interarticularis defects and 6 mm anterolisthesis L5 on S1. Severe lumbar spondylosis. Ther e are bridging osteophytes at multiple levels in the spine, consistent with diffuse idiopathic skelet al hyperostosis (DISH). Left total hip arthroplasty and moderate right hip osteoarthritis. IMPRESSION: 1. Multiple mildly dilated gas and fluid-filled loops of small bowel without discrete transition poin t with fluid extending throughout the colon and would favor an enteritis or ileus over obstruction. Reviewed, dictated and finalized at location A. E MECHANIC IMPRESSION: 1. Multiple mildly dilated gas and fluid-filled loops of small bowel without di screte transition point with fluid extending throughout the colon and would fav or an enteritis or ileus over obstruction.
--- NOTE | ~2022-01-28 | XR_ITS ---
EXAMINATION: XR abdomen obstructive series DATE: 01/29/2022 06:00 INDICATION: Ileus versus obstruction TECHNIQUE: Frontal supine and upright views of the abdomen were obtained. COMPARISON: Abdomen radiograph and CT abdomen and pelvis dated 01/28/2022 FINDINGS: Nasogastric tube is no longer visualized. Moderate to large amount of gas scattered throughout the co april. There are a few mildly dilated gas-filled loops of small bowel in the central abdomen. Indetermi john mottled pattern of lucency projecting over the right inguinal region. No free intraperitoneal ga s. Visualized lung bases are clear. Right iliac bone island. Left total hip arthroplasty. IMPRESSION: 1. Several dilated gas-filled loops of bowel in the central abdomen which could be due to ileus or o bstruction. 2. Indeterminate mottled pattern of lucency projecting over the right inguinal region with no evident inguinal hernia containing bowel or soft tissue gas to account for this on the prior CT this could b e artifact of material external to the patient.. Reviewed, dictated and finalized at location A. T WORKER IMPRESSION: 1. Several dilated gas-filled loops of bowel in the central abdomen which coul d be due to ileus or obstruction. 2. Indeterminate mottled pattern of lucency projecting over the right inguinal region with no evident inguinal hernia containing bowel or soft tissue gas to a ccount for this on the prior CT this could be artifact of material external to the patient..
--- NOTE | ~2022-01-28 | XR_ITS ---
EXAMINATION: XR small bowel follow through DATE: 01/30/2022 13:28 INDICATION: Dilated small bowel, nausea and vomiting TECHNIQUE: Pc Installation Engineer radiograph(s) of the abdomen was/were obtained. Oral contrast was administered, and sequential radiographs of the abdomen were obtained until oral contrast was noted to be in the proxi mal colon. Spot fluoroscopic images of the small bowel were obtained. Fluoroscopy exposure time was 0 5 minutes. A total of 12 overhead radiographs and 8 fluoroscopic spot images were recorded. COMPARISON: None. FINDINGS: A few gas-filled but not frankly dilated loops of large and small bowel are seen in the cargo service supervisor radiogr aphs. Cholecystectomy clips in the right upper quadrant. Partially visualized left total hip arthropl asty. Severe lumbar spondylosis. Transit time from the stomach to proximal colon was approximately 3- 4 hours. There is normal caliber and mucosal fold pattern throughout the small bowel. No dilated loop s of bowel to suggest obstruction. Terminal ileum is normal. IMPRESSION: 1. Likely small bowel ileus with mildly delayed transit of contrast through the small bowel but witho ut bowel dilation or discrete transition point to suggest obstruction. Reviewed, dictated and finalized at location A. AND DIE SUPERVISOR IMPRESSION: 1. Likely small bowel ileus with mildly delayed transit of contrast through the small bowel but without bowel dilation or discrete transition point to suggest obstruction.
[2022-01-28 07:10] LABS: Basophils Percent Auto 0.1 % (0.2-1.2); Hematocrit 43.6 % (37.0-47.0); Hemoglobin 13.4 g/dL (12.0-15.0); Immature Granulocyte Absolute 0.03 K/mm3 (0.00-0.031); Immature Granulocyte Percent A 0.3 % (0-0.5); Lymphocytes Absolute Auto 0.34 K/mm3 (0.9-3.2); Lymphocytes Percent Auto 3.6 % (18.3-44.2); Mean Corpuscular HGB Conc 30.7 g/dl (32-36); Mean Corpuscular Hemoglobin 27.3 pg (26-34); Monocytes Absolute Auto 0.4 K/mm3 (0.1-0.6); Neutrophils Absolute Auto 8.6 K/mm3 (1.3-6.7); Platelet Count Result 337 k/mm3 (150-375); Red Cell Distribution Width 14.5 % (11.5-14.5); White Blood Count 9.3 K/mm3 (4.5-10.0)
[2022-01-28 07:17] LABS: Add Urine Microscopic? YES; Appearance Urine Clear (Clear); Bilirubin Urine Negative (Negative); Blood Urine Negative (Negative); Color Urine Brown (Yellow); Glucose Urine UA Negative (Negative); Ketones Urine Negative (Negative); Leukocyte Esterase Ur Negative LEU/UL (Negative); Nitrate Urine Negative (Negative); Protein Urine 1+ mg/dL (Negative); Specific Grav Ur >= 1.030 (1.001-1.035); Urobilinogen Urine 0.2 mg/dL (<2.0)
--- NOTE | 2022-01-28 07:18 | ED.ABDPAIN ---
HPI - Abdominal Pain General Chief Complaint: Abdominal Pain Stated Complaint: N/V/D & ABD PAIN Time Seen by Provider: 01/28/22 07:06 History of Present Illness HPI narrative: Patient is a 66-year-old female with a history of hyperlipidemia hypertension, GERD, schizophrenia presenting with abdominal pain. Patient states that she has had intermittent left-sided abdominal pain for the last several days. Patient states that she had an episode of nausea and vomiting earlier today. States that her nausea has since resolved. States that she is also had multiple episodes of diarrhea. She denies melena or hematochezia. No fevers or chills, headache, chest pain, shortness of breath, cough, dysuria, hematuria, leg swelling. Related Data Home Medications Medication Instructions Recorded Confirmed fluoxetine 20 mg capsule 20 mg PO DAILY 08/17/20 01/28/22 lamotrigine 150 mg tablet 150 mg PO HS 08/17/20 01/28/22 levothyroxine 25 mcg tablet 25 mcg PO DAILY 08/17/20 01/28/22 lisinopril 40 mg tablet 40 mg PO DAILY 08/17/20 01/28/22 simvastatin 40 mg tablet 40 mg PO HS 08/17/20 01/28/22 lithium carbonate 150 mg capsule 150 mg PO DAILY 05/31/21 01/28/22 acetaminophen 325 mg tablet 650 mg PO Q6H PRN Pain 01/28/22 01/28/22 (Tylenol) bisacodyl 10 mg rectal suppository 10 mg RECTAL DAILY PRN Constipation 01/28/22 01/28/22 cholecalciferol (vitamin D3) 25 25 mcg PO DAILY 01/28/22 01/28/22 mcg (1,000 unit) capsule cyanocobalamin (vitamin B-12) 1,000 mcg PO DAILY 01/28/22 01/28/22 1,000 mcg capsule lithium carbonate 300 mg capsule 300 mg PO HS 01/28/22 01/28/22 magnesium citrate 300 ml PO DAILY PRN Constipation 01/28/22 01/28/22 magnesium hydroxide 400 mg/5 mL 30 ml PO HS PRN Constipation 01/28/22 01/28/22 oral suspension (Milk of Magnesia) ondansetron 4 mg disintegrating 4 mg PO Q6H PRN Nausea 01/28/22 01/28/22 tablet sodium phosphates 19 gram-7 118 ml RECTAL DAILY PRN 01/28/22 01/28/22 gram/118 mL enema (Fleet Enema) Constipation Allergies Allergy/AdvReac Type Severity Reaction Status Date / Time meperidine Allergy Unknown Vomiting Verified 06/02/21 13:31 Penicillins Allergy Unknown Rash Verified 06/02/21 13:31 Review of Systems Review of Systems: All systems reviewed & are unremarkable except as noted in HPI and below PMFSH Past Medical History Medical History (Updated 01/29/22 @ 10:30 by Kell Dennison MD) Anxiety Arthritis Bipolar disorder Cerebrovascular accident Depression Hip fracture, left (05/06/17) Hypertension Hypothyroidism Knee osteomyelitis Schizophrenia Seizures Patient denies. Surgical History Surgical History (Updated 01/28/22 @ 20:43 by Cinthya Mckenzie PA-C) History of inguinal hernia repair History of left knee replacement Subsequent hardware removal due to infection. History of open reduction and internal fixation (ORIF) procedure Repair of left hip fracture. Family History Family History Mother Family history of heart disease in male family member before age 55 Father Acute myocardial infarction Other Diabetes mellitus Family history of malignant neoplasm Hypertension Social History Social History (Updated 01/28/22 @ 20:44 by Cinthya Mckenzie PA-C) Social History: Surrogate medical decision maker: Jessica Lisandro, [id number]. Code status: Full code. Smoking status: Never smoker Second hand tobacco smoke exposure: No Alcohol intake: never Substance use: never Substance use type: does not use Lack of Transportation: No Lack of Food: Never True Current Housing: I Have Housing Concerned About Future Housing: No Difficulty Paying Gas/Electric Bills: No Difficulty Paying for Meds: No Currently Unemployed: No Education: Decline to Answer Difficulty w/ Childcare or Family Care: No Additional living arrangements comments: Lives with brother and [id number]. Currently at [facility]
[2022-01-28 07:21] LABS: Lactic Acid Reflex 0.7 mmol/L (0.7-2.0)
[2022-01-28 07:24] LABS: Alanine Aminotransferase 13 U/L (6-35); Albumin Level 3.9 g/dL (3.5-5.1); Alkaline Phosphatase 135 U/L (38-126); Anion Gap 8 mmol/L (8-16); Aspartate Amino Transferase 20 U/L (14-36); Bilirubin,Total 0.3 mg/dL (0.2-1.3); Blood Urea Nitrogen 23 mg/dL (7-17); Calcium 9.4 mg/dL (8.4-10.2); Carbon Dioxide 23 mmol/L (22-30); Chloride 109 mmol/L (98-107); Estimated CRCL calculation 86 ml/min; Estimated Glomerular Filt Rate > 60; Glucose 157 mg/dL (65-110); Lipase 34 U/L (23-300); Potassium 2.3 mmol/L (3.4-5.0); Sodium 140 mmol/L (137-145)
[2022-01-28 07:30] LABS: Mucus Urine Few /lpf; Squamous Epithelial Cell Urine Rare /hpf (Few); WBC Urine 0-3 /hpf
[2022-01-28] MEDS: SODIUM CHLORIDE 0.9% IV 1,000 ML 999 ML IV CONT (07:51)
[2022-01-28 07:52] LABS: Influenza A QL RT-PCR Negative (Negative); Influenza B QL RT-PCR Negative (Negative); RSV RNA, RT-PCR Negative (Negative); SARS-CoV-2 RNA PCR Negative
[2022-01-28] MEDS: POTASSIUM CHLORIDE INJ 40 MEQ in SODIUM CHLORIDE 0.9% IV 500 ML 130 MEQ IVPB ×2 (07:52→15:56)
[2022-01-28 07:54] LABS: Magnesium 1.9 mg/dL (1.6-2.3)
--- NOTE | 2022-01-28 13:00 | PM.IMHP ---
H&P: HPI History of Present Illness Date/Time: 01/28/22 13:00 Chief Complaint: Abdominal pain, nausea, vomiting. Narrative: This is a 66-year-old female with history of schizophrenia, hypertension, hyperlipidemia, hypothyroidism, GERD, and anemia who presented to the emergency department via EMS from [facility] for evaluation of abdominal pain, nausea, and vomiting. She has had mild left-sided abdominal pain for several days that she has difficulties describing. She has also had nausea, loose stools, and this morning she vomited and was brought in for evaluation. CT of the abdomen and pelvis today showed findings suggestive of enteritis or ileus and she has been admitted in this setting. Since arrival to the ER she has had 4 loose stools. Initially she felt better with antiemetics and fluids however later in the evening she started to have increasing pain and nausea and she vomited 600 mL of dark brown emesis. On re-evaluation her abdomen is distended and an NG tube is being inserted. She denies fever, chills, sweats, cold and flu symptoms, chest pain, shortness a breath, severe abdominal pain, blood and mucus in the stool, and dysuria. She has no known sick contacts. She denies recent antibiotic use. No known history of C diff. Review of Systems Review of Systems: Twelve systems were reviewed and are negative except for as per HPI. [facility] Past Medical History Medical History (Updated 01/28/22 @ 20:46 by Cinthya Mckenzie PA-C) Anxiety Arthritis Bipolar disorder Cerebrovascular accident Depression Hip fracture, left (05/06/17) Hypertension Hypothyroidism Knee osteomyelitis Schizophrenia Seizures Patient denies. Surgical History Surgical History (Updated 01/28/22 @ 20:43 by Cinthya Mckenzie PA-C) History of inguinal hernia repair History of left knee replacement Subsequent hardware removal due to infection. History of open reduction and internal fixation (ORIF) procedure Repair of left hip fracture. Family History Family History Mother Family history of heart disease in male family member before age 55 Father Acute myocardial infarction Other Diabetes mellitus Family history of malignant neoplasm Hypertension Social History Social History (Updated 01/28/22 @ 20:44 by Cinthya Mckenzie PA-C) Social History: Surrogate medical decision maker: Jessica Mcmahon, [id number]. Code status: Full code. Smoking status: Never smoker Second hand tobacco smoke exposure: No Alcohol intake: never Substance use: never Substance use type: does not use Lack of Transportation: No Lack of Food: Never True Current Housing: I Have Housing Concerned About Future Housing: No Difficulty Paying Gas/Electric Bills: No Difficulty Paying for Meds: No Currently Unemployed: No Education: Decline to Answer Difficulty w/ Childcare or Family Care: No Additional living arrangements comments: Lives with brother and [id number]. [facility] removal of left knee replacement due to infection. Spiritual care concerns: No Meds Home Medications and Allergies Home Medications Medication Instructions Recorded Confirmed Type fluoxetine 20 mg capsule 20 mg PO DAILY 08/17/20 01/28/22 History lamotrigine 150 mg tablet 150 mg PO HS 08/17/20 01/28/22 History levothyroxine 25 mcg tablet 25 mcg PO DAILY 08/17/20 01/28/22 History lisinopril 40 mg tablet 40 mg PO DAILY 08/17/20 01/28/22 History simvastatin 40 mg tablet 40 mg PO HS 08/17/20 01/28/22 History lithium carbonate 150 mg capsule 150 mg PO DAILY 05/31/21 01/28/22 History ferrous sulfate 325 mg (65 mg 325 mg PO BID #60 tabs 06/03/21 01/28/22 Rx iron) tablet pantoprazole 40 mg tablet,delayed 40 mg PO QAM #30 tabs 06/06/21 01/28/22 Rx release acetaminophen 325 mg tablet 650 mg PO Q6H PRN Pain 01/28/22 01/28/22 History (Tylenol) bisacodyl 10 mg
--- NOTE | 2022-01-28 13:25 | ADMGEN ---
This patient, Kelly Mcmahon, was admitted to 3 [facility] Surg Room 303-01. Patient/family oriented to hospital policies and general routines including ID bracelet, bed and alarms, visiting hours, pain management, procedures, bathroom and other care routines, personal items, smoking policy, room service/diet, and visiting hours. Information on how to activate the Rapid Response Team has been discussed. Patient/Family are encouraged to report perceived risks to care and to ask questions if they do not understand what they are told or what they should do.
[2022-01-28 13:52] LABS: Potassium 2.8 mmol/L (3.4-5.0)
[2022-01-28 15:02] LABS: Lithium 0.3 mmol/L (0.6-1.2)
[2022-01-28] MEDS: ONDANSETRON INJ 4 MG/2 ML VIAL IV PUSH (18:13)
[2022-01-28] MEDS: SODIUM CHLORIDE 0.9% IV 1,000 ML 100 ML IV CONT (23:02)
[2022-01-29] VITALS (9 sets, daily range): BP systolic 108–148; BP diastolic 52–73; PULSE 56–83; RESP 16–20; TEMP 36.2–36.8; O2SAT 97–98
[2022-01-29] MEDS: LEVOTHYROXINE SODIUM INJ 100 MCG/5 ML VIAL 12.5 MCG IV PUSH (06:09)
--- NOTE | 2022-01-29 06:28 | PC.NURSE ---
Pt pulled out NG tube at 2330 on 01/28/2022. Pt states she couldn't breathe. Pt was made aware of importance of NG tube prior to placement and pt verbally agreed. Pt was crying and yelling she didn't want it in and she can't breathe. Pt was reminded of importance and reassured of it's temporary status. Pt was calm 30 minutes prior to NG tube being pulled out at 2330. Per Cinthya, pt to remain NPO and keep NG tube out as long as pt is not vomiting. Once pt starts vomiting, RN will re-insert NG Tube. As of 0635 on 01/29/2022 pt has no c/o of nausea/vomiting.
--- NOTE | 2022-01-29 08:45 | PM.IMPN ---
Progress Note: A&P Assessment and Plan (1) Gastroenteritis: Code(s): K52.9 - Noninfective gastroenteritis and colitis, unspecified Status: Acute Assessment and Plan: Patient presented with nausea, vomiting, and diarrhea. CT abdomen pelvis revealed enteritis vs. ileus. Infectious vs viral gastroenteritis. Continue supportive care with IV fluid rehydration and antiemetics as needed. Stool studies have been ordered and they are pending. (2) Ileus: Code(s): K56.7 - Ileus, unspecified Status: Acute Assessment and Plan: Patient presented with nausea, vomiting, and diarrhea CT shows findings favoring enteritis or ileus. Obstruction seems less likely. NG tube is being placed on 01/28 due to ongoing vomiting. Patient pulled out NG tube and N/V has been controlled Patient given Zofran p.r.n. NPO diet Continue serial abdominal exams and check obstructive series this morning. GI has been consulted and appreciate their recommendations General surgery consulted and appreciate recommendations (3) Hypokalemia: Code(s): E87.6 - Hypokalemia Status: Acute Assessment and Plan: Most likely due to diarrhea and vomiting Potassium will be replaced and monitored closely. (4) Hypertension: Code(s): I10 - Essential (primary) hypertension Status: Chronic Assessment and Plan: Hx of Chronic HTN Blood pressures were reviewed and they are stable. Antihypertensives will be reviewed and resumed as appropriate. (5) Hypothyroidism: Code(s): E03.9 - Hypothyroidism, unspecified Status: Acute Assessment and Plan: Chronic Continue levothyroxine and check TSH. (6) Psychiatric illness: Code(s): F99 - Mental disorder, not otherwise specified Status: Acute Assessment and Plan: Chronic Medications on hold due to vomiting Time Spent With Patient Time with patient: Greater than 35 minutes Subjective Date/time seen: 01/29/22 08:45 Interval history: 66-year-old female with history of schizophrenia, hypertension, hyperlipidemia, hypothyroidism, GERD, and anemia who presented to the emergency department via EMS from [facility] for evaluation of abdominal pain, nausea, and vomiting.? While in the ER patient's abdomen became distended along with episodes of nausea and vomiting and diarrhea. NG tube placed in the ER. Patient has since pulled out NG tube. When talking to the patient she had obvious mental delays. Patient denies chest pain, shortness a breath, nausea and vomiting today, no abdominal pain today, no diarrhea today, and no fever. Patient seems to be more worried about her knee surgery scar than anything else during the interview. Review of Systems Review of Systems: All systems reviewed & are unremarkable except as noted in HPI and below Exam Narrative: GENERAL: Comfortable, no acute distress HENMT: moist mucous membranes, poor dentition EYES: EOM intact b/l NECK: no lymphadenopathy RESPIRATORY: clear to auscultation CARDIO: RRR GI: soft, nontender, bowel sounds present SKIN: no rashes EXTREMITIES: Left knee scar from previous knee replacement surgery, no edema, redness or tenderness Objective Data Vital Signs Vital Signs: Vital Signs - 24 hr 01/28/22 09:08 01/28/22 10:01 01/28/22 10:16 Temperature Pulse Rate 81 84 81 Respiratory Rate 20 20 20 Blood Pressure 133/67 118/93 H 125/68 Pulse Oximetry 98 99 98 Oxygen Delivery 01/28/22 13:12 01/28/22 16:00 01/28/22 22:00 Temperature 97.4 F L Pulse Rate 100 80 60 Respiratory Rate 18 20 Blood Pressure 153/98 H 140/78 Pulse Oximetry 100 96 Oxygen Delivery 01/28/22 20:00 01/28/22 20:00 01/29/22 00:00 Temperature Pulse Rate 77 83 Respiratory Rate Blood Pressure Pulse Oximetry Oxygen Delivery Room Air 01/29/22 05:30 01/29/22 04:00 Temperature 97.1 F L Pulse Rate 68 65 Respiratory Rate 20
[2022-01-29] MEDS: PANTOPRAZOLE SODIUM IV 40 MG VIAL IV PUSH (09:05)
[2022-01-29] MEDS: ENOXAPARIN 40 MG/0.4 ML SYRINGE SUB-Q (09:05)
[2022-01-29] MEDS: SODIUM CHLORIDE 0.9% IV 1,000 ML 100 ML IV CONT ×2 (09:08→19:09)
[2022-01-29 10:30] LABS: Hematocrit 39.1 % (37.0-47.0); Hemoglobin 11.6 g/dL (12.0-15.0); Mean Corpuscular HGB Conc 29.7 g/dl (32-36); Mean Corpuscular Volume 91.1 fl (80-100); Mean Platelet Volume 8.9 fl (7.4-10.4); Platelet Count Result 255 k/mm3 (150-375); Red Blood Count 4.29 M/mm3 (4.2-5.4); Red Cell Distribution Width 14.6 % (11.5-14.5)
[2022-01-29 10:40] LABS: Alanine Aminotransferase 12 U/L (6-35); Albumin Level 3.2 g/dL (3.5-5.1); Alkaline Phosphatase 95 U/L (38-126); Anion Gap 5 mmol/L (8-16); Aspartate Amino Transferase 20 U/L (14-36); Bilirubin,Total 0.3 mg/dL (0.2-1.3); Blood Urea Nitrogen 20 mg/dL (7-17); Calcium 9.1 mg/dL (8.4-10.2); Carbon Dioxide 20 mmol/L (22-30); Chloride 116 mmol/L (98-107); Estimated CRCL calculation 101 ml/min; Estimated Glomerular Filt Rate > 60; Glucose 99 mg/dL (65-110); Potassium 3.2 mmol/L (3.4-5.0); Sodium 141 mmol/L (137-145)
--- NOTE | 2022-01-29 14:03 | WPDGICN ---
Assessment and Plan Assessment and plan (1) Nausea and vomiting in adult: Code(s): R11.2 - Nausea with vomiting, unspecified Status: Acute Assessment and Plan: will get SBFT to assess small bowel ileus vs obstruction, report that earlier she had another epidose of emesis she removed ngt monitor and ask surgery to evaluate (2) Diarrhea: Code(s): R19.7 - Diarrhea, unspecified Status: Acute (3) Gastroenteritis: Code(s): K52.9 - Noninfective gastroenteritis and colitis, unspecified Status: Acute (4) Ileus: Code(s): K56.7 - Ileus, unspecified Status: Acute Assessment and Plan: will get more imaging she had egd and colonoscopy but could not reach cecum (5) Psychiatric illness: Code(s): F99 - Mental disorder, not otherwise specified Status: Acute GI Consult Note Consult date/time: 01/29/22 14:03 Reason for consult: n/v, dilated small bowel HPI: Kelly Mcmahon is a 66 year old female with history of schizophrenia, hypertension, GERD, and anemia who presented to the emergency department via EMS from [facility] for evaluation of abdominal pain, nausea, and vomiting. History is difficult to obtain because her mental condition, she initially told me that is here because had previous surgery on her knee. Per record she had mild left-sided abdominal pain for several days and then developed nausea, loose stools and finally had one episode of emesis day of admission. CT of the abdomen and pelvisshowed findings suggestive of enteritis or ileus. RN reports that NGT was placed because had increasing pain and nausea with more emesis of 600 mL of dark brown but she removed it. New abdominal XR shows ileus vs obstruction, today she denies abdominal pain and she has bowel sound. Dr Paez did egd and colonoscopy 05/2021 because of anemia, egd no major findings, colon mucosa normal but did not reach cecum because redundant colon. Review of Systems Constitutional: Constitutional: Denies chills Eyes: Eyes: Denies blurry vision ENT: Reports Normal hearing present Cardiovascular: Cardiovascular: Denies chest pain Respiratory: Respiratory: Denies chest congestion Gastrointestinal: Gastrointestinal: Reports nausea and Reports vomiting Genitourinary: Genitourinary: Denies dysuria Musculoskeletal: Musculoskeletal: Denies back pain Integumentary/Breasts: Skin/Breast: Denies rash Neurologic: Denies Abnormal speech present Psychiatric: Psychiatric: Reports anxiety PMFSH Past Medical History Medical History (Updated 01/29/22 @ 14:10 by Daniel Oconnor MD) Anxiety Arthritis Bipolar disorder Cerebrovascular accident Depression Hip fracture, left (05/06/17) Hypertension Hypothyroidism Knee osteomyelitis Nausea and vomiting in adult Schizophrenia Seizures Patient denies. Surgical History Surgical History (Updated 01/28/22 @ 20:43 by Cinthya Mckenzie PA-C) History of inguinal hernia repair History of left knee replacement Subsequent hardware removal due to infection. History of open reduction and internal fixation (ORIF) procedure Repair of left hip fracture. Family History Family History Mother Family history of heart disease in male family member before age 55 Father Acute myocardial infarction Other Diabetes mellitus Family history of malignant neoplasm Hypertension Social History Social History (Updated 01/28/22 @ 20:44 by Cinthya Mckenzie PA-C) Social History: Surrogate medical decision maker: Jessica Mcmahon, [id number]. Code status: Full code. Smoking status: Never smoker Second hand tobacco smoke exposure: No Alcohol intake: never Substance use: never Substance use type: does not use Lack of Transportation: No Lack of Food: Never True Current Housing: I Have Housing Concerned About Future Housing: No Difficulty Payin
--- NOTE | 2022-01-29 14:40 | PM.CNGS ---
Assessment and Plan Assessment and plan (1) Nausea and vomiting in adult: Code(s): R11.2 - Nausea with vomiting, unspecified Status: Acute Assessment and Plan: I reviewed the CT scan patient does appear to have liquid throughout her small bowel and colon consistent with enteritis. She has had a liquid bowel movement since being admitted and is no longer having any of her nausea and vomiting. She did not tolerate an NG tube placement. Small-bowel follow-through has been ordered but will not be completed until tomorrow likely. I do not see any sign of obstruction and since her bowels are moving, I feel it would be reasonable to try clear liquid diet today. Will reassess tomorrow and follow up on x-ray results and determine if there is any point of obstruction. (2) Diarrhea: Code(s): R19.7 - Diarrhea, unspecified Status: Acute (3) Ileus: Code(s): K56.7 - Ileus, unspecified Status: Acute (4) Schizophrenia: Code(s): F20.9 - Schizophrenia, unspecified Status: Acute History of Present Illness Consult details Consult date: 01/29/22 Reason for consult: other ( Ileus versus bowel obstruction) Narrative: this is a 66-year-old woman who I am asked to see for a possible bowel obstruction. She presented yesterday to the emergency department with nausea and vomiting. She has a history of schizophrenia, therefore full history is difficult to obtain. She states that she no longer has any nausea or vomiting. She had a bowel movement earlier this morning. She denies any abdominal pain but states she is feeling a lot of grumbling because she is hungry. She also would like some liquids because she is very thirsty. CT in the emergency department showed evidence of dilated small bowel and liquid throughout the small bowel and colon likely consistent with ileus and enteritis with less likely possible small bowel obstruction. She states that she had something similar to this about a year ago when she had the flu but denies any other prior obstructions. She has a large scar on her midline abdomen but when I ask her what this is from she states that is from her heart surgery and when she had a stroke. She does not recall any other major abdominal surgery. Review of Systems Review of Systems: All systems reviewed & are unremarkable except as noted in HPI and below Constitutional: Constitutional: Denies chills and Denies fever(s) Cardiovascular: Cardiovascular: Denies chest pain and Denies dyspnea Respiratory: Respiratory: Denies dyspnea Gastrointestinal: Gastrointestinal: Reports as per [facility] Past Medical History Medical History Anxiety Arthritis Bipolar disorder Cerebrovascular accident Depression Hip fracture, left (05/06/17) Hypertension Hypothyroidism Knee osteomyelitis Nausea and vomiting in adult Schizophrenia Seizures Patient denies. Surgical History Surgical History History of inguinal hernia repair History of left knee replacement Subsequent hardware removal due to infection. History of open reduction and internal fixation (ORIF) procedure Repair of left hip fracture. Family History Family History Mother Family history of heart disease in male family member before age 55 Father Acute myocardial infarction Other Diabetes mellitus Family history of malignant neoplasm Hypertension Social History Social History Social History: Surrogate medical decision maker: Jessica Mcmahon, [id number]. Code status: Full code. Smoking status: Never smoker Second hand tobacco smoke exposure: No Alcohol intake: never Substance use: never Substance use type: does not use Lack of Transportation: No Lack of Food: Never True Cur
[2022-01-29] MEDS: POTASSIUM CHLORIDE 20 MEQ PACKET (FOR LIQUID) 40 MEQ PO (17:23)
[2022-01-30] VITALS (8 sets, daily range): BP systolic 124–134; BP diastolic 64–79; PULSE 41–66; RESP 17–18; TEMP 36–36.4; O2SAT 99–100
[2022-01-30] MEDS: SODIUM CHLORIDE 0.9% IV 1,000 ML 100 ML IV CONT ×2 (05:07→21:57)
[2022-01-30] MEDS: LEVOTHYROXINE SODIUM INJ 100 MCG/5 ML VIAL 12.5 MCG IV PUSH (05:50)
[2022-01-30 07:20] LABS: Hematocrit 35.8 % (37.0-47.0); Hemoglobin 10.7 g/dL (12.0-15.0); Mean Corpuscular HGB Conc 29.9 g/dl (32-36); Mean Corpuscular Hemoglobin 26.5 pg (26-34); Mean Corpuscular Volume 88.6 fl (80-100); Mean Platelet Volume 9.6 fl (7.4-10.4); Platelet Count Result 229 k/mm3 (150-375); Red Blood Count 4.04 M/mm3 (4.2-5.4); Red Cell Distribution Width 14.6 % (11.5-14.5); White Blood Count 4.6 K/mm3 (4.5-10.0)
[2022-01-30 07:36] LABS: Alanine Aminotransferase 12 U/L (6-35); Albumin Level 2.8 g/dL (3.5-5.1); Alkaline Phosphatase 82 U/L (38-126); Anion Gap 2 mmol/L (8-16); Aspartate Amino Transferase 20 U/L (14-36); Bilirubin,Total 0.1 mg/dL (0.2-1.3); Blood Urea Nitrogen 16 mg/dL (7-17); Carbon Dioxide 24 mmol/L (22-30); Chloride 114 mmol/L (98-107); Estimated CRCL calculation 101 ml/min; Estimated Glomerular Filt Rate > 60; Glucose 88 mg/dL (65-110); Magnesium 1.8 mg/dL (1.6-2.3); Potassium 3.1 mmol/L (3.4-5.0); Sodium 140 mmol/L (137-145)
--- NOTE | 2022-01-30 08:27 | P.PNIM_ITS ---
Progress Note: A&P Assessment and Plan (1) Gastroenteritis: Code(s): K52.9 - Noninfective gastroenteritis and colitis, unspecified Status: Acute Assessment and Plan: Patient presented with nausea, vomiting, and diarrhea. CT abdomen pelvis revealed enteritis vs. ileus. * Infectious vs viral gastroenteritis. * Continue supportive care with IV fluid rehydration and antiemetics as needed. * Stool studies have been ordered and they are pending. (2) Ileus: Code(s): K56.7 - Ileus, unspecified Status: Acute Assessment and Plan: Patient presented with nausea, vomiting, and diarrhea * CT shows findings favoring enteritis or ileus. * Obstruction seems less likely. * NG tube is being placed on 01/28 due to ongoing vomiting. * Patient pulled out NG tube and N/V has been controlled * Patient given Zofran p.r.n. * X-ray: Several dilated gas-filled loops of bowel in the central abdomen ileus vs obstruction * GI has been consulted and appreciate their recommendations * General surgery consulted and appreciate recommendations * Small-bowel follow-through did not reveal obstruction. * Patient does not need any surgical intervention at this time * GI still following patient * Patient advanced to clear liquid diet * Continue advancing patient's diet and possible discharge tomorrow tolerating well. (3) Hypokalemia: Code(s): E87.6 - Hypokalemia Status: Acute Assessment and Plan: Most likely due to diarrhea and vomiting * Potassium will be replaced and monitored closely. (4) Hypertension: Code(s): I10 - Essential (primary) hypertension Status: Chronic Assessment and Plan: Hx of Chronic HTN * Blood pressures were reviewed and they are stable. * Antihypertensives will be reviewed and resumed as appropriate. (5) Hypothyroidism: Code(s): E03.9 - Hypothyroidism, unspecified Status: Acute Assessment and Plan: Chronic * Continue levothyroxine and check TSH. (6) Psychiatric illness: Code(s): F99 - Mental disorder, not otherwise specified Status: Acute Assessment and Plan: Chronic * Medications on hold due to vomiting Time Spent With Patient Time with patient: Greater than 35 minutes Subjective Date/time seen: 01/30/22 08:27 Interval history: 66-year-old female with history of schizophrenia, hypertension, hyperlipidemia, hypothyroidism, GERD, and anemia who presented to the emergency department via EMS from [facility] for evaluation of abdominal pain, nausea, and vomiting.? Patient does not complain of nausea vomiting or abdominal pain during interview. Patient denies chest pain, shortness a breath and fever. Patient very fixated on left knee surgery. Review of Systems Review of Systems: All systems reviewed & are unremarkable except as noted in HPI and below Exam Narrative: GENERAL: Comfortable, no acute distress HENMT: moist mucous membranes, poor dentition EYES: EOM intact b/l NECK: no lymphadenopathy RESPIRATORY: clear to auscultation CARDIO: RRR GI: soft, nontender, bowel sounds present SKIN: no rashes EXTREMITIES: Left knee scar from previous knee replacement surgery, no edema, redness or tenderness Objective Data Vital Signs Vital Signs: Vital Signs - 24 hr 01/29/22 09:05 01/29/22 14:00 01/29/22 12:00 Temperature 97.9 F Pulse Rate 60 61 Respiratory Rate 16
--- NOTE | 2022-01-30 08:27 | PM.IMPN ---
Progress Note: A&P Assessment and Plan (1) Gastroenteritis: Code(s): K52.9 - Noninfective gastroenteritis and colitis, unspecified Status: Acute Assessment and Plan: Patient presented with nausea, vomiting, and diarrhea. CT abdomen pelvis revealed enteritis vs. ileus. Infectious vs viral gastroenteritis. Continue supportive care with IV fluid rehydration and antiemetics as needed. Stool studies have been ordered and they are pending. (2) Ileus: Code(s): K56.7 - Ileus, unspecified Status: Acute Assessment and Plan: Patient presented with nausea, vomiting, and diarrhea CT shows findings favoring enteritis or ileus. Obstruction seems less likely. NG tube is being placed on 01/28 due to ongoing vomiting. Patient pulled out NG tube and N/V has been controlled Patient given Zofran p.r.n. X-ray: Several dilated gas-filled loops of bowel in the central abdomen ileus vs obstruction GI has been consulted and appreciate their recommendations General surgery consulted and appreciate recommendations Small-bowel follow-through did not reveal obstruction. Patient does not need any surgical intervention at this time GI still following patient Patient advanced to clear liquid diet Continue advancing patient's diet and possible discharge tomorrow tolerating well. (3) Hypokalemia: Code(s): E87.6 - Hypokalemia Status: Acute Assessment and Plan: Most likely due to diarrhea and vomiting Potassium will be replaced and monitored closely. (4) Hypertension: Code(s): I10 - Essential (primary) hypertension Status: Chronic Assessment and Plan: Hx of Chronic HTN Blood pressures were reviewed and they are stable. Antihypertensives will be reviewed and resumed as appropriate. (5) Hypothyroidism: Code(s): E03.9 - Hypothyroidism, unspecified Status: Acute Assessment and Plan: Chronic Continue levothyroxine and check TSH. (6) Psychiatric illness: Code(s): F99 - Mental disorder, not otherwise specified Status: Acute Assessment and Plan: Chronic Medications on hold due to vomiting Time Spent With Patient Time with patient: Greater than 35 minutes Subjective Date/time seen: 01/30/22 08:27 Interval history: 66-year-old female with history of schizophrenia, hypertension, hyperlipidemia, hypothyroidism, GERD, and anemia who presented to the emergency department via EMS from [facility] for evaluation of abdominal pain, nausea, and vomiting.? Patient does not complain of nausea vomiting or abdominal pain during interview. Patient denies chest pain, shortness a breath and fever. Patient very fixated on left knee surgery. Review of Systems Review of Systems: All systems reviewed & are unremarkable except as noted in HPI and below Exam Narrative: GENERAL: Comfortable, no acute distress HENMT: moist mucous membranes, poor dentition EYES: EOM intact b/l NECK: no lymphadenopathy RESPIRATORY: clear to auscultation CARDIO: RRR GI: soft, nontender, bowel sounds present SKIN: no rashes EXTREMITIES: Left knee scar from previous knee replacement surgery, no edema, redness or tenderness Objective Data Vital Signs Vital Signs: Vital Signs - 24 hr 01/29/22 09:05 01/29/22 14:00 01/29/22 12:00 Temperature 97.9 F Pulse Rate 60 61 Respiratory Rate 16 Blood Pressure 138/63 Pulse Oximetry 98 Oxygen Delivery Room Air 01/29/22 16:00 01/29/22 22:00 01/29/22 20:00 Temperature 98.2 F Pulse Rate 56 L 59 L 60 Respiratory Rate 18 Blood Pressure 108/52 L Pulse Oximetry 98 Oxygen Delivery 01/29/22 20:00 01/30/22 00:00 01/30/22 04:00 Temperature Pulse Rate 54 L 41 L Respiratory Rate Blood Pressure Pulse Oximetry Oxygen Delivery Room Air 01/30/22 06:00 Temperature 97.5 F L Pulse Rate 61 Respiratory Rate 18 Blood Pressure 124/79 Pulse Oximetry 100
--- NOTE | 2022-01-30 08:30 | WPDGIPROGNO ---
Progress Note: A&P Assessment and Plan (1) Nausea and vomiting in adult: Code(s): R11.2 - Nausea with vomiting, unspecified Status: Acute Assessment and Plan: resolved CL diet for now will assess further with SBFT probably gastroenteritis or resolving ileus (2) Abdominal pain: Code(s): R10.9 - Unspecified abdominal pain Status: Acute (3) Gastroenteritis: Code(s): K52.9 - Noninfective gastroenteritis and colitis, unspecified Status: Acute (4) Abnormal small bowel x-ray: Code(s): R93.3 - Abnormal findings on diagnostic imaging of other parts of digestive tract Status: Acute Assessment and Plan: pending SBFT to?determine if there is any point of obstruction but clinically doing better CL diet for now. Subjective Date/time seen: 01/30/22 08:30 Interval history: she seems comfortable, denies abdominal pain, she is fixated about her scar on her knee. She was talking to herself. No report of emesis Review of Systems Review of Systems: All systems reviewed & are unremarkable except as noted in HPI and below Exam Narrative: General: comfortable but sometimes talking to herself HEENT: Normocephalic, atraumatic. PERRL, EOMI. Neck: Supple. Respiratory: Lungs are clear to auscultation bilaterally. Cardiovascular: Regular rate and rhythm with S1-S2. Gastrointestinal: non tender, no rebound, no guarding, positive bowel sounds Skin: Warm and dry. No rash or lesions on limited exam. Extremities: No cyanosis, clubbing, or significant edema. surgical scar on left knee. Neurological: Alert and awake but she is poor historian. No gross focal deficits Psychiatric: Poor eye contact. anxious Objective Data Vital Signs Vital Signs: Vital Signs - 24 hr 01/29/22 09:05 01/29/22 14:00 01/29/22 12:00 Temperature 97.9 F Pulse Rate 60 61 Respiratory Rate 16 Blood Pressure 138/63 Pulse Oximetry 98 Oxygen Delivery Room Air 01/29/22 16:00 01/29/22 22:00 01/29/22 20:00 Temperature 98.2 F Pulse Rate 56 L 59 L 60 Respiratory Rate 18 Blood Pressure 108/52 L Pulse Oximetry 98 Oxygen Delivery 01/29/22 20:00 01/30/22 00:00 01/30/22 04:00 Temperature Pulse Rate 54 L 41 L Respiratory Rate Blood Pressure Pulse Oximetry Oxygen Delivery Room Air 01/30/22 06:00 Temperature 97.5 F L Pulse Rate 61 Respiratory Rate 18 Blood Pressure 124/79 Pulse Oximetry 100 Oxygen Delivery Intake/Output Intake/Output: Intake & Output 01/27/22 01/28/22 01/29/22 01/30/22 23:59 23:59 23:59 23:59 Intake Total 2120 2570 1000 Output Total 1000 Balance 1120 2570 1000 Meds/Results Medications: Active Medications Generic Name Dose Route Start Last Admin Trade Name Freq PRN Reason Stop Dose Admin Enoxaparin Sodium 40 mg 01/29/22 09:00 01/29/22 09:05 Enoxaparin 40 Mg/0.4 Ml Syringe SUB-Q 40 mg DAILY CANDICE Administration Sodium Chloride 1,000 mls @ 100 mls/hr 01/28/22 20:50 01/30/22 05:07 Normal Saline Iv IV CONT 100 mls/hr .Q10H CANDICE Administration Levothyroxine Sodium 12.5 mcg 01/29/22 06:30 01/30/22 05:50 Levothyroxine Sodium Inj 100 Mcg/5 Ml Vial IV PUSH 12.5 mcg DAILY@0630 CANDICE Administration Ondansetron HCl 4 mg 01/28/22 10:00 01/28/22 18:13 Ondansetron Inj 4 Mg/2 Ml Vial IV PUSH 4 mg Q4H PRN Administration Nausea Pantoprazole Sodium 40 mg 01/29/22 09:00 01/29/22 09:05 Pantoprazole Sodium Iv 40 Mg Vial IV PUSH 40 mg QAM CANDICE Administration Radiology Results: ITS Impressions Abdomen/Pelvis CT 01/28/22 08:37 IMPRESSION: 1. Multiple mildly dilated gas and fluid-filled loops of small bowel without discrete transition point with fluid extending throughout the colon and would favor an enteritis or ileus over obstruction. Abdomen X-Ray 01/29/22 09:52 IMPRESSION: 1. Several dilated gas-filled loops of bowel in the central abdomen which coul
--- NOTE | 2022-01-30 13:51 | PM.PNGS ---
Progress Note: A&P Assessment and Plan (1) Nausea and vomiting in adult: Code(s): R11.2 - Nausea with vomiting, unspecified Status: Acute Assessment and Plan: Contrast making it to colon. Symptoms likely related to enteritis or terminal ileitis. No surgical indications at this time. Continue treatment per GI/Hospitalist. (2) Diarrhea: Code(s): R19.7 - Diarrhea, unspecified Status: Acute (3) Abdominal pain: Code(s): R10.9 - Unspecified abdominal pain Status: Acute (4) Schizophrenia: Code(s): F20.9 - Schizophrenia, unspecified Status: Acute Subjective Subjective Date/Time Seen: 01/30/22 13:51 Interval history: Tolerating clear liquids. Bowels moving. No abdominal pain, nausea, or vomiting. Exam GI: Inspection: non-distended GI Palp: Yes Soft to palpation, No Tenderness to palpation present (GI), No Guarding due to palpation present (GI), No Hernia present and No Palpable mass present Objective Data Vital Signs Vital Signs: Vital Signs - 24 hr 01/29/22 14:00 01/29/22 16:00 01/29/22 22:00 Temperature 36.6 C 36.8 C Pulse Rate 60 56 L 59 L Respiratory Rate 16 18 Blood Pressure 138/63 108/52 L Pulse Oximetry 98 98 Oxygen Delivery 01/29/22 20:00 01/29/22 20:00 01/30/22 00:00 Temperature Pulse Rate 60 54 L Respiratory Rate Blood Pressure Pulse Oximetry Oxygen Delivery Room Air 01/30/22 04:00 01/30/22 06:00 01/30/22 08:00 Temperature 36.4 C L Pulse Rate 41 L 61 66 Respiratory Rate 18 Blood Pressure 124/79 Pulse Oximetry 100 Oxygen Delivery Intake/Output Intake/Output: Intake & Output 01/27/22 01/28/22 01/29/22 01/30/22 23:59 23:59 23:59 23:59 Intake Total 2120 2570 1000 Output Total 1000 Balance 1120 2570 1000 Meds/Results Medications: Active Medications Generic Name Dose Route Start Last Admin Trade Name Freq PRN Reason Stop Dose Admin Enoxaparin Sodium 40 mg 01/29/22 09:00 01/29/22 09:05 Enoxaparin 40 Mg/0.4 Ml Syringe SUB-Q 40 mg DAILY CANDICE Administration Sodium Chloride 1,000 mls @ 100 mls/hr 01/28/22 20:50 01/30/22 05:07 Normal Saline Iv IV CONT 100 mls/hr .Q10H CANDICE Administration Levothyroxine Sodium 12.5 mcg 01/29/22 06:30 01/30/22 05:50 Levothyroxine Sodium Inj 100 Mcg/5 Ml Vial IV PUSH 12.5 mcg DAILY@0630 CANDICE Administration Ondansetron HCl 4 mg 01/28/22 10:00 01/28/22 18:13 Ondansetron Inj 4 Mg/2 Ml Vial IV PUSH 4 mg Q4H PRN Administration Nausea Pantoprazole Sodium 40 mg 01/29/22 09:00 01/29/22 09:05 Pantoprazole Sodium Iv 40 Mg Vial IV PUSH 40 mg QAM CANDICE Administration Radiology Results: ITS Impressions Abdomen/Pelvis CT 01/28/22 08:37 IMPRESSION: 1. Multiple mildly dilated gas and fluid-filled loops of small bowel without discrete transition point with fluid extending throughout the colon and would favor an enteritis or ileus over obstruction. Abdomen X-Ray 01/29/22 09:52 IMPRESSION: 1. Several dilated gas-filled loops of bowel in the central abdomen which could be due to ileus or obstruction. 2. Indeterminate mottled pattern of lucency projecting over the right inguinal region with no evident inguinal hernia containing bowel or soft tissue gas to account for this on the prior CT this could be artifact of material external to the patient.. Labs Labs: Laboratory Results - last 24 hr 01/30/22 01/30/22 06:22 06:22 WBC 4.6 RBC 4.04 L Hgb 10.7 L Hct 35.8 L MCV 88.6 MCH 26.5 MCHC 29.9 L RDW 14.6 H Plt Count 229 MPV 9.6 Sodium 140 Potassium 3.1 L Chloride 114 H Carbon Dioxide 24 Anion Gap 2 L BUN 16 Creatinine 0.50 L Estim Creat Clear Calc 101 Estimated GFR > 60 Glucose 88 Calcium 9.0 Magnesium 1.8 Total Bilirubin 0.1 L AST 20 ALT 12 Alkaline Phosphatase 82 Total Protein 6.0 L Albumin 2.8 L
[2022-01-30] MEDS: POTASSIUM CHLORIDE 20 MEQ PACKET (FOR LIQUID) 40 MEQ PO (13:52)
[2022-01-30] MEDS: ENOXAPARIN 40 MG/0.4 ML SYRINGE SUB-Q (13:53)
[2022-01-30] MEDS: PANTOPRAZOLE SODIUM IV 40 MG VIAL IV PUSH (13:53)
[2022-01-30 18:53] LABS: Toxigenic C. Diff NEGATIVE (NEGATIVE)
[2022-01-31] VITALS: PULSE 57
[2022-01-31] MEDS: SIMVASTATIN 20 MG TABLET 40 MG PO (03:25)
[2022-01-31] MEDS: lamoTRIgine 100 MG TABLET PO (03:26)
[2022-01-31] MEDS: lamoTRIgine 50 MG TABLET PO (03:26)
[2022-01-31] MEDS: ALPRAZolam (*CRX) 0.5 MG TABLET PO (03:28)
[2022-01-31 04:00] VITALS: PULSE 44
[2022-01-31 06:00] VITALS: BP 131/54; PULSE 61; RESP 16; TEMP 35.9; O2SAT 99
[2022-01-31] MEDS: LEVOTHYROXINE SODIUM 25 MCG TABLET PO (06:19)
[2022-01-31] MEDS: SODIUM CHLORIDE 0.9% IV 1,000 ML 100 ML IV CONT (06:26)
[2022-01-31 07:34] LABS: Hematocrit 38.5 % (37.0-47.0); Hemoglobin 11.4 g/dL (12.0-15.0); Mean Corpuscular HGB Conc 29.6 g/dl (32-36); Mean Corpuscular Hemoglobin 27.3 pg (26-34); Mean Corpuscular Volume 92.1 fl (80-100); Mean Platelet Volume 9.2 fl (7.4-10.4); Platelet Count Result 243 k/mm3 (150-375); Red Blood Count 4.18 M/mm3 (4.2-5.4); Red Cell Distribution Width 14.6 % (11.5-14.5); White Blood Count 4.9 K/mm3 (4.5-10.0)
[2022-01-31 07:44] LABS: Anion Gap 6 mmol/L (8-16); Blood Urea Nitrogen 8 mg/dL (7-17); Calcium 8.9 mg/dL (8.4-10.2); Carbon Dioxide 22 mmol/L (22-30); Chloride 114 mmol/L (98-107); Estimated CRCL calculation 101 ml/min; Estimated Glomerular Filt Rate > 60; Glucose 80 mg/dL (65-110); Potassium 3.4 mmol/L (3.4-5.0); Sodium 142 mmol/L (137-145)
[2022-01-31 08:00] VITALS: PULSE 50
--- NOTE | 2022-01-31 08:10 | P.DS_ITS ---
DS: Admitting Diagnosis Discharge Date 01/31/22 Admitting Diagnosis Enteritis versus ileus versus obstruction DS: Discharge Diagnosis Discharge Diagnosis (1) Gastroenteritis: Code(s): K52.9 - Noninfective gastroenteritis and colitis, unspecified Status: Acute Assessment and Plan: Patient presented with nausea, vomiting, and diarrhea. CT abdomen pelvis revealed enteritis vs. ileus. * Infectious vs viral gastroenteritis. * Continue supportive care with IV fluid rehydration and antiemetics as needed. * Stool studies have been ordered and they are pending. * C diff negative (2) Ileus: Code(s): K56.7 - Ileus, unspecified Status: Acute Assessment and Plan: Patient presented with nausea, vomiting, and diarrhea * CT shows findings favoring enteritis or ileus. * Obstruction seems less likely. * NG tube is being placed on 01/28 due to ongoing vomiting. * Patient pulled out NG tube and N/V has been controlled * Patient given Zofran p.r.n. * X-ray: Several dilated gas-filled loops of bowel in the central abdomen ileus vs obstruction * GI has been consulted and appreciate their recommendations * General surgery consulted and appreciate recommendations * Small-bowel follow-through did not reveal obstruction. * Patient does not need any surgical intervention at this time * GI still following patient * Patient advanced to clear liquid diet * Continue advancing patient's diet and possible discharge tomorrow tolerating well. (3) Hypokalemia: Code(s): E87.6 - Hypokalemia Status: Acute Assessment and Plan: Most likely due to diarrhea and vomiting * Potassium will be replaced and monitored closely. (4) Hypertension: Code(s): I10 - Essential (primary) hypertension Status: Chronic Assessment and Plan: Hx of Chronic HTN * Blood pressures were reviewed and they are stable. * Antihypertensives will be reviewed and resumed as appropriate. (5) Hypothyroidism: Code(s): E03.9 - Hypothyroidism, unspecified Status: Acute Assessment and Plan: Chronic * Continue levothyroxine and check TSH. (6) Psychiatric illness: Code(s): F99 - Mental disorder, not otherwise specified Status: Acute Assessment and Plan: Chronic * Medications on hold due to vomiting DS: Summary Hospital Course Reason for hospitalization: Enteritis versus ileus versus small-bowel obstruction Hospital Course: 66-year-old female with history of hyperlipidemia, hypertension, GERD, schizophrenia presented to the ED with abdominal pain on 01/28/2022. Patient arrived from [facility] and has intellectual disability. Patient stated that she had nausea and vomiting along with multiple episodes of diarrhea prior to arrival to the ED. CT of the abdomen and pelvis revealed findings suggested of enteritis or ileus. Patient was given antiemetics in the ER and initially felt better but then began to have increasing pain and nausea along with an episode of vomiting up dark brown emesis. Patient was re-evaluated and was found to have distended abdomen an NG-tube was inserted. GI and General surgery consulted. Patient pulled out NG tube on 01/29/2022 and did not have any more nausea or vomiting. Patient continued on Zofran p.r.n. and put on NPO diet. Abdominal x-ray revealed several dilated gas-filled loops of bowel in the central abdomen ileus versus obstruction. Patient had small-bowel follow-through and an obstructive series done. Patient was not found to have any obstruction. Patient's diet advanced as shagufta
--- NOTE | 2022-01-31 08:10 | PM.DS ---
DS: Admitting Diagnosis Discharge Date 01/31/22 Admitting Diagnosis Enteritis versus ileus versus obstruction DS: Discharge Diagnosis Discharge Diagnosis (1) Gastroenteritis: Code(s): K52.9 - Noninfective gastroenteritis and colitis, unspecified Status: Acute Assessment and Plan: Patient presented with nausea, vomiting, and diarrhea. CT abdomen pelvis revealed enteritis vs. ileus. Infectious vs viral gastroenteritis. Continue supportive care with IV fluid rehydration and antiemetics as needed. Stool studies have been ordered and they are pending. C diff negative (2) Ileus: Code(s): K56.7 - Ileus, unspecified Status: Acute Assessment and Plan: Patient presented with nausea, vomiting, and diarrhea CT shows findings favoring enteritis or ileus. Obstruction seems less likely. NG tube is being placed on 01/28 due to ongoing vomiting. Patient pulled out NG tube and N/V has been controlled Patient given Zofran p.r.n. X-ray: Several dilated gas-filled loops of bowel in the central abdomen ileus vs obstruction GI has been consulted and appreciate their recommendations General surgery consulted and appreciate recommendations Small-bowel follow-through did not reveal obstruction. Patient does not need any surgical intervention at this time GI still following patient Patient advanced to clear liquid diet Continue advancing patient's diet and possible discharge tomorrow tolerating well. (3) Hypokalemia: Code(s): E87.6 - Hypokalemia Status: Acute Assessment and Plan: Most likely due to diarrhea and vomiting Potassium will be replaced and monitored closely. (4) Hypertension: Code(s): I10 - Essential (primary) hypertension Status: Chronic Assessment and Plan: Hx of Chronic HTN Blood pressures were reviewed and they are stable. Antihypertensives will be reviewed and resumed as appropriate. (5) Hypothyroidism: Code(s): E03.9 - Hypothyroidism, unspecified Status: Acute Assessment and Plan: Chronic Continue levothyroxine and check TSH. (6) Psychiatric illness: Code(s): F99 - Mental disorder, not otherwise specified Status: Acute Assessment and Plan: Chronic Medications on hold due to vomiting DS: Summary Hospital Course Reason for hospitalization: Enteritis versus ileus versus small-bowel obstruction Hospital Course: 66-year-old female with history of hyperlipidemia, hypertension, GERD, schizophrenia presented to the ED with abdominal pain on 01/28/2022. Patient arrived from [facility] and has intellectual disability. Patient stated that she had nausea and vomiting along with multiple episodes of diarrhea prior to arrival to the ED. CT of the abdomen and pelvis revealed findings suggested of enteritis or ileus. Patient was given antiemetics in the ER and initially felt better but then began to have increasing pain and nausea along with an episode of vomiting up dark brown emesis. Patient was re-evaluated and was found to have distended abdomen an NG-tube was inserted. GI and General surgery consulted. Patient pulled out NG tube on 01/29/2022 and did not have any more nausea or vomiting. Patient continued on Zofran p.r.n. and put on NPO diet. Abdominal x-ray revealed several dilated gas-filled loops of bowel in the central abdomen ileus versus obstruction. Patient had small-bowel follow-through and an obstructive series done. Patient was not found to have any obstruction. Patient's diet advanced as tolerated. On day of discharge 01/31/2022 patient feeling much better and tolerating diet. Patient not experiencing nausea, vomiting or diarrhea this time. Patient's suspected to have viral gastroenteritis and is stable upon discharge. Time Spent with Patient Time attestation: Total time spent providing and/or coordinating discharge services: Exam Narrative: GENERAL: Comfortab
[2022-01-31] MEDS: ENOXAPARIN 40 MG/0.4 ML SYRINGE SUB-Q (09:04)
[2022-01-31] MEDS: LITHIUM CARBONATE 150 MG CAPSULE PO (09:04)
[2022-01-31] MEDS: PANTOPRAZOLE 40 MG TABLET PO (09:04)
[2022-01-31 12:00] VITALS: PULSE 52
[2022-01-31] MEDS: FLUoxetine HCL 20 MG CAPSULE PO (12:26)
[2022-01-31 14:00] VITALS: BP 138/63; PULSE 63; RESP 16; TEMP 36; O2SAT 100
--- NOTE | 2022-01-31 14:21 | WPDGIPROGNO ---
Progress Note: A&P Assessment and Plan (1) Abnormal small bowel x-ray: Code(s): R93.3 - Abnormal findings on diagnostic imaging of other parts of digestive tract Status: Acute Assessment and Plan: sbft reviewed, tolerating diet no objections to discharge (2) Nausea and vomiting in adult: Code(s): R11.2 - Nausea with vomiting, unspecified Status: Acute Assessment and Plan: resolved (3) Diarrhea: Code(s): R19.7 - Diarrhea, unspecified Status: Acute (4) Psychiatric illness: Code(s): F99 - Mental disorder, not otherwise specified Status: Acute (5) Knee pain, left: Qualifiers: Chronicity: unspecified Qualified Code(s): M25.562 - Pain in left knee Code(s): M25.562 - Pain in left knee Status: Acute Subjective Date/time seen: 01/31/22 14:21 Interval history: no events overnigth, she is comfortable Review of Systems Review of Systems: All systems reviewed & are unremarkable except as noted in HPI and below Exam Narrative: General: comfortable but sometimes talking to herself HEENT: Normocephalic, atraumatic. PERRL, EOMI. Neck: Supple. Respiratory: Lungs are clear to auscultation bilaterally. Cardiovascular: Regular rate and rhythm with S1-S2. Gastrointestinal: non tender, no rebound, no guarding, positive bowel sounds Skin: Warm and dry. No rash or lesions on limited exam. Extremities: No cyanosis, clubbing, or significant edema. surgical scar on left knee. Neurological: Alert and awake but she is poor historian. No gross focal deficits Psychiatric: Poor eye contact. anxious Objective Data Vital Signs Vital Signs: Vital Signs - 24 hr 01/30/22 16:00 01/30/22 22:00 01/30/22 20:00 Temperature 96.8 F L Pulse Rate 60 50 L Respiratory Rate 17 Blood Pressure 134/64 Pulse Oximetry 99 Oxygen Delivery Room Air 01/31/22 00:00 01/30/22 20:00 01/31/22 04:00 Temperature Pulse Rate 57 L 55 L 44 L Respiratory Rate Blood Pressure Pulse Oximetry Oxygen Delivery 01/31/22 06:00 01/31/22 08:00 01/31/22 08:00 Temperature 96.6 F L Pulse Rate 61 50 L Respiratory Rate 16 Blood Pressure 131/54 L Pulse Oximetry 99 Oxygen Delivery Room Air 01/31/22 12:00 Temperature Pulse Rate 52 L Respiratory Rate Blood Pressure Pulse Oximetry Oxygen Delivery Intake/Output Intake/Output: Intake & Output 01/28/22 01/29/22 01/30/22 01/31/22 23:59 23:59 23:59 23:59 Intake Total 2120 2570 3440 1840 Output Total 1000 Balance 1120 2570 3440 1840 Meds/Results Medications: Active Medications Generic Name Dose Route Start Last Admin Trade Name Freq PRN Reason Stop Dose Admin Enoxaparin Sodium 40 mg 01/29/22 09:00 01/31/22 09:04 Enoxaparin 40 Mg/0.4 Ml Syringe SUB-Q 40 mg DAILY CANDICE Administration Fluoxetine HCl 20 mg 01/31/22 09:00 01/31/22 12:26 Fluoxetine Hcl 20 Mg Capsule PO 20 mg DAILY CANDICE Administration Lamotrigine 50 mg 01/31/22 03:15 01/31/22 03:26 Lamotrigine 50 Mg Tablet PO 50 mg HS CANDICE Administration Lamotrigine 100 mg 01/31/22 03:15 01/31/22 03:26 Lamotrigine 100 Mg Tablet PO 100 mg HS CANDICE Administration Levothyroxine Sodium 25 mcg 01/31/22 06:30 01/31/22 06:19 Levothyroxine Sodium 25 Mcg Tablet PO 25 mcg DAILY@0630 CANDICE Administration [place] Carbonate 150 mg 01/31/22 08:00 01/31/22 09:04 [place] Carbonate 150 Mg Capsule PO 150 mg DAILY@0800 CANDICE Administration [place] Carbonate 300 mg 01/31/22 21:00 [place] Carbonate 300 Mg Capsule PO HS CANDICE Ondansetron HCl 4 mg 01/28/22 10:00 01/28/22 18:13 Ondansetron Inj 4 Mg/2 Ml Vial IV PUSH 4 mg Q4H PRN Administration Nausea Pantoprazole Sodium 40 mg 01/31/22 09:00 01/31/22 09:04 Pantoprazole 40 Mg Tablet PO 40 mg QAM CANDICE Administration Simvastatin 40 mg 01/31/22 03:10 01/31/22 03:25 Simvastatin
--- NOTE | 2022-02-08 09:11 | PC.NURSE ---
Stool cx is negative.
== END 2022-01-31 19:59 | DRG 392 ==
LOC: ANHED 07:06 → ANH3MEDSUR 13:13
PROVIDERS: Emergency Medicine; Internal Medicine Critical Care Medicine; Physician Assistant; Admitting Provider Student in an Organized Health Care Education/Training Program; Emergency Provider Emergency Medicine; PCP Family Medicine; Visit Provider Student in an Organized Health Care Education/Training Program
DX: A08.4 Viral intestinal infection, unspecified (principal); K56.7 Ileus, unspecified; I10 Essential (primary) hypertension; E87.6 Hypokalemia; E78.5 Hyperlipidemia, unspecified; K21.9 Gastro-esophageal reflux disease without esophagitis; M19.90 Unspecified osteoarthritis, unspecified site; F31.9 Bipolar disorder, unspecified; F41.9 Anxiety disorder, unspecified; F20.9 Schizophrenia, unspecified; Z20.822 Contact with and (suspected) exposure to COVID-19; Z96.652 Presence of left artificial knee joint; Z86.73 Personal history of transient ischemic attack (TIA), and cerebral infarction without residual deficits
CPT/HCPCS: 36415; 51701; 74019; 74177; 74250; 80048; 80053; 80178; 81001; 83605; 83690; 83735; 84132; 84443; 85025; 85027; 87045; 87269; 87272; 87427; 87493; 87637; 96365; 96366; 96375; 96376; 99285; A9270; C9113; G0378; J1650; J2405; J3480; J7030; J7040; Q9967

== ENCOUNTER 2023-12-08 06:12 | Inpatient (IN) | payer MEDICARE, OTHER, SELFPAY ==
[2023-12-08] VITALS (12 sets, daily range): BP systolic 103–147; BP diastolic 44–62; PULSE 30–59; RESP 13–20; TEMP 36.4–36.8; O2SAT 97–100; BMI 46.6
--- NOTE | 2023-12-08 | ECHO_ITS ---
Patient Info Name: Kelly Mcmahon Age: 68 years : 1955 Gender: Female Ht: 59 in Wt: 226 lbs BSA: 2.13 m2 HR: 43 bpm Heart Rhythm: Bradycardia Technical Quality: Poor Exam Date: 12/08/2023 11:32 AM Exam Location: Echo Lab Patient Status: Outpatient Admit Date: 12/08/2023 Staff Ordering Physician: Nile Sanders MD Principal Associate: Abril Ortiz RDCS Attending Provider: Corey Acevedo MD Referring Physician: Tommy STARR; Exam Type: CA echo dop color flow w con Study Info Indications - COMPLETE HEART BLOCK Complete two-dimensional, color flow and Doppler transthoracic echocardiogram is performed with contrast to opacify the left ventricle and to improve the deliniation of the left ventricle endocardial borders. Summary 1. Left ventricular systolic function is normal, estimated at 55-60%. 2. There is mildly increased left ventricular wall thickness. 3. The left ventricular diastolic function is abnormal. 4. Left atrial chamber dimension is mildly enlarged. 5. There is trace tricuspid valve regurgitation. 6. Mild pulmonary hypertension, estimated pulmonary arterial systolic pressure is 45 mmHg. Left Ventricle Left ventricular chamber dimension is normal. Left ventricular systolic function is normal, estimated at 55-60%. There is mildly increased left ventricular wall thickness. Left ventricular septal wall motion is normal. The left ventricular diastolic function is abnormal. Right Ventricle Right ventricular chamber dimension is normal. Right ventricular systolic function is normal. Left Atria Left atrial chamber dimension is mildly enlarged. Right Atria Right atrial chamber dimension is normal. Atrial Septum Intact interatrial septum visualized by color flow imaging. Aortic Valve The aortic valve is trileaflet. There is no aortic valve sclerosis. There is no aortic valve stenosis. There is no aortic valve regurgitation. Pulmonic Valve The pulmonic valve is normal. There is no pulmonic valve stenosis. There is no pulmonic regurgitation. Mitral Valve The mitral valve has normal leaflets. There is no mitral valve stenosis. There is trace mitral valve regurgitation. Tricuspid Valve The tricuspid valve leaflets are normal. There is no significant tricuspid valve stenosis. There is trace tricuspid valve regurgitation. Mild pulmonary hypertension, estimated pulmonary arterial systolic pressure is 45 mmHg. Pericardium/Pleural The pericardium appears normal. There is no pericardial effusion. Inferior Vena Cava Normal inferior vena cava with >50% collapse upon inspiration consistent with Empty right atrial pressure, 5 mmHg. Aorta The aortic root size at the sinus of Valsalva is normal. The prox ascending aorta size is normal. Left Ventricular Outflow Tract Name Value Normal LVOT 2D LVOT Diameter 2.10 cm LVOT Doppler LVOT Peak Gradient 7 mmHg LVOT Mean Gradient 4 mmHg LVOT VTI 26.38 cm LVOT VTI/AV VTI Ratio 0.69 LVOT Stroke Volume 91.07 ml LVOT CO 3.60 l/min LVOT CI 1.69 L/min/m2 Mitral Valve Name Value Normal MV Doppler MV Decel Taylor 603.41 cm/s2 MV PHT 0 s MV Area (PHT) 3.64 cm2 4.00-5.00 MV Regurgitation Doppler MR Peak Gradient 30 mmHg MV Diastolic Function MV E Peak Velocity 125.80 cm/s MV A Peak Velocity 96.98 cm/s MV E/A 1.30 MV Decel Time 0 s MV Annular TDI MV E/e' (Septal) 14.74 <=8.00 MV E/e' (Lateral) 12.81 <=8.00 MV E/e' (Average) 13.77 Tricuspid Valve Name Value Normal TV Regurgitation Doppler TR Peak Velocity 317.03 cm/s TR Peak Gradient 26 mmHg Estimated PAP/RSVP RA Pressure 5 mmHg <=5 PA Systolic Pressure 45 mmHg <36 RV Systolic Pressure 45 mmHg <36 Aortic Valve Name Value Normal AV Doppler AV Peak Velocity 165.86 cm/s AV Peak Gradient 11 mmHg AV Mean Gradient 7 mmHg AV VTI 38.40 cm AV Area (Cont Eq VTI) 2.37 cm2 >=3.00 AV Area (Cont Eq Noé) 2.77 cm2 AV Regurgitation 2D LVOT Area 3.45 cm2 Ventricles Name Value Normal LV Dimensions 2D/MM IVS Diastolic Thickness (2D) 1.25 cm 0.60-1.00 LVID Diastole (2D) 5.60 cm 3.80-5.20 LVIW Diastolic Thickness (2D) 1.17 cm 0.60-0.90 LVID Systole (2D) 3.97 cm 2.20-3.50 LVOT Diameter 2.10 cm LV Mass (2D Cubed) 282.93 g 67.00-162.00 LV Mass Index (2D Cubed) 0.01 g/cm2 0.00-0.01 Relative Wall Thickness (2D) 0.42 LV Fractional Shortening/Ejection Fraction 2D/MM LV Fractional Shortening (2D) 29 % 27-45 LV EF (2D Teicholz) 55 % 54-74 LV Diastolic Volume (4C MOD) 115.55 ml LV EF (4C MOD) 65 % LV Diastolic Volume (2C MOD) 116.28 ml LV EF (2C MOD) 48 % LV Diastolic Volume (BP MOD) 115.19 ml 46.00-106.00 LV Diastolic Volume Index (BP MOD) 0.05 l/m2 0.03-0.06 LV Systolic Volume (BP MOD) 51.21 ml 14.00-42.00 LV Systolic Volume Index (BP MOD) 0.02 l/m2 0.01-0.02 LV EF (BP MOD) 56 % 54-74 LV Diastolic Length (4C) 8.31 cm LV Systolic Length (4C) 6.49 cm LV Stroke Volume (4C MOD) 75.39 ml Atria Name Value Normal LA Dimensions LA Volume (4C A-L) 27.89 ml RA Dimensions Area (4C) 11.51 cm2 <=18.00 Report Signatures
--- NOTE | ~2023-12-08 | XR_ITS ---
EXAMINATION: XR chest 1V portable DATE: 12/08/2023 06:46 INDICATION: Chest pain. Bradycardia. TECHNIQUE: frontal view of the chest was obtained. COMPARISON: Chest radiograph dated 05/31/2021 FINDINGS: Mild opacities in the left lower lung zone. Calcified nodule in the right midlung zone consistent wit h old granulomatous disease. Cardiomegaly and enlargement of the central pulmonary arteries consisten t with pulmonary arterial hypertension. IMPRESSION: 1. Mild opacities in the left lower lung zone which could represent atelectasis, asymmetric mild pulm onary edema or pneumonia. 2. Cardiomegaly with enlargement of the central pulmonary arteries consistent with pulmonary arterial hypertension. Reviewed, dictated and finalized at location A. IMPRESSION: 1. Mild opacities in the left lower lung zone which could represent atelectasis , asymmetric mild pulmonary edema or pneumonia. 2. Cardiomegaly with enlargement of the central pulmonary arteries consistent w ith pulmonary arterial hypertension.
--- NOTE | 2023-12-08 06:20 | ECG_ITS ---
Test Date: 2023-12-08 06:20:11 Measurements Intervals [place] Rate: 35 P: 0 KS: 0 QRS: 115 QRSD: 160 T: -51 QT: 592 QTc: 452 Interpretive Statements SINUS RHYTHM WITH COMPLETE HEART BLOCK SLOW JUNCTIONAL ESCAPE RHYTHM RIGHT BUNDLE BRANCH BLOCK LEFT POSTERIOR FASCICULAR BLOCK ST-T WAVE ABNORMALITY IN ANTEROLAT/INF LEADS- CONSIDER ISCHEMIA BASELINE ARTIFACT- I, II, III, AVR, AVL, AVF, V1-V6 ABNORMAL ECG No previous ECG available for comparison Electronically Signed On 12-08-2023 08:04:30 CDT by Wilmar Mcghee D.O.
[2023-12-08 06:30] LABS: Basophils Percent Auto 0.5 % (0.2-1.2); Eosinophils Absolute Auto 0.3 K/mm3 (0-0.3); Eosinophils Percent Auto 3.4 % (0-4.4); Hematocrit 39.6 % (37.0-47.0); Hemoglobin 12.4 g/dL (12.0-15.0); Immature Granulocyte Absolute 0.02 K/mm3 (0.00-0.031); Immature Granulocyte Percent A 0.2 % (0-0.5); Lymphocytes Absolute Auto 1.29 K/mm3 (0.9-3.2); Mean Corpuscular HGB Conc 31.3 g/dl (32-36); Mean Corpuscular Volume 95.9 fl (80-100); Mean Platelet Volume 10.4 fl (7.4-10.4); Monocytes Absolute Auto 0.5 K/mm3 (0.1-0.6); Monocytes Percent Auto 5.6 % (2.6-8.5); Neutrophils Absolute Auto 6.5 K/mm3 (1.3-6.7); Neutrophils Percent Auto 75.3 % (45.5-73.1); Platelet Count Result 202 k/mm3 (150-375); Red Blood Count 4.13 M/mm3 (4.2-5.4); Red Cell Distribution Width 13.2 % (11.5-14.5); White Blood Count 8.6 K/mm3 (4.5-10.0)
[2023-12-08 06:40] LABS: INR 1.1; Prothrombin Time 14.4 Seconds (11.1-14.7)
[2023-12-08 06:41] LABS: Partial Thromboplastin Time 23.6 Seconds (22.3-36.8)
--- NOTE | 2023-12-08 06:41 | ED_ITS ---
HPI - General Adult General Chief complaint: Seizure Stated complaint: multiple c/o Time Seen by Provider: 12/08/23 06:32 History of Present Illness HPI narrative: patient is a 68-year-old female who presents emergency department with chief complaint of convulsing and tensing the patient was having episodes her muscles feeling tense and reports that she does does not feel well. Patient states she has some tightness in her chest a reports very mild Related Data Home Medications Medication Instructions Recorded Confirmed fluoxetine 20 mg capsule 20 mg PO DAILY 08/17/20 01/28/22 lamotrigine 150 mg tablet 150 mg PO HS 08/17/20 01/28/22 levothyroxine 25 mcg tablet 25 mcg PO DAILY 08/17/20 01/28/22 lisinopril 40 mg tablet 40 mg PO DAILY 08/17/20 01/28/22 simvastatin 40 mg tablet 40 mg PO HS 08/17/20 01/28/22 lithium carbonate 150 mg capsule 150 mg PO DAILY 05/31/21 01/28/22 acetaminophen 325 mg tablet 650 mg PO Q6H PRN Pain 01/28/22 01/28/22 (Tylenol) bisacodyl 10 mg rectal suppository 10 mg RECTAL DAILY PRN Constipation 01/28/22 01/28/22 cholecalciferol (vitamin D3) 25 25 mcg PO DAILY 01/28/22 01/28/22 mcg (1,000 unit) capsule cyanocobalamin (vitamin B-12) 1,000 mcg PO DAILY 01/28/22 01/28/22 1,000 mcg capsule lithium carbonate 300 mg capsule 300 mg PO HS 01/28/22 01/28/22 magnesium citrate 300 ml PO DAILY PRN Constipation 01/28/22 01/28/22 magnesium hydroxide 400 mg/5 mL 30 ml PO HS PRN Constipation 01/28/22 01/28/22 oral suspension (Milk of Magnesia) ondansetron 4 mg disintegrating 4 mg PO Q6H PRN Nausea 01/28/22 01/28/22 tablet sodium phosphates 19 gram-7 118 ml RECTAL DAILY PRN 01/28/22 01/28/22 gram/118 mL enema (Fleet Enema) Constipation Allergies Allergy/AdvReac Type Severity Reaction Status Date / Time meperidine Allergy Unknown Vomiting Verified 12/08/23 06:29 Penicillins Allergy Unknown Rash Verified 12/08/23 06:29 Review of Systems Review of Systems: A 10 system review of systems was completed on the patient and is negative except for what is stated in the HPI. Nursing and ancillary documentation was reviewed. [facility] Past Medical History Medical History Abnormal small bowel x-ray Anxiety Arthritis Bipolar disorder Cerebrovascular accident Depression Hip fracture, left (05/06/17) Hypertension Hypothyroidism Knee osteomyelitis Nausea and vomiting in adult Schizophrenia Seizures Patient denies. Surgical History Surgical History History of inguinal hernia repair History of left knee replacement Subsequent hardware removal due to infection. History of open reduction and internal fixation (ORIF) procedure Repair of left hip fracture. Family History Family History Mother Family history of heart disease in male family member before age 55 Father Acute myocardial infarction Other Diabetes mellitus Family history of malignant neoplasm Hypertension Social History Social History Social History: Surrogate medical decision maker: Jessica Mcmahon, [id number]. Code status: Full code. Smoking status: Never smoker Second hand tobacco smoke exposure: No Alcohol intake: never Substance use: never Substance use type: does not use Lack of Transportation: No Lack of Food: Never True Current Housing: I Have Housing Concerned About Future Housing: No Difficulty Paying Gas/Electric Bills: No Difficulty Paying for Meds: No Currently Unemployed: No Education: Decline to Answer Difficulty w/ Childcare or Family Care: No Living arrangements: with family Additional living arrangements comments: Lives with brother and [id number]. Currently at [facility] following removal of left knee replacement due to infection. Spiritual care concerns: No Exam Narrative: GENERAL: Well-appearing, well-nourished, and in no acute distress. HEAD: Normocephalic, atraumatic. EYES: PERRLA and EOMI. ENT: Nares clear, no rhinorrhea or epistaxis. Mucous membranes moist. NECK: Supple. CHEST: Clear to auscultation. No respiratory distress. HEART: bradycardic rate and regularrhythm. No murmur heard. Normal peripheral pulses. ABDOMEN: Soft, nontender, nondistended, normal active bowel sounds. EXTREMITIES: Normal range of motion. No edema. SKIN: Warm, dry, no rash. NEURO: No focal deficits. Alert and oriented x3. PSYCH: Normal mood and affect. Course Vital Signs Vital signs: Vital Signs Temperature 36.6 C 12/08/23 06:14 Pulse Rate 59 L 12/08/23 06:14 Respiratory Rate 100 H 12/08/23 06:14 Blood Pressure 147/55 H 12/08/23 06:14 Pulse Oximetry 100 12/08/23 06:14 Oxygen Delivery Room Air 12/08/23 06:14 Temperature 36.6 C 12/08/23 06:14 Pulse Rate 35 L 12/08/23 06:28 Respiratory Rate 15 12/08/23 06:28 Blood Pressure 147/55 H 12/08/23 06:28 Pulse Oximetry 100 12/08/23 06:28 Oxygen Delivery Room Air 12/08/23 06:14 Medical Decision Making MDM Narrative Medical decision making narrative: differential diagnosis includes symptomatic bradycardia, electrolyte abnormality, renal failure, EKG showed bradycardia with a rate of 35 there is potential for this being a third-degree heart block. The case was discussed with Interventional Cardiology Dr. Sanders who will consult on the patient. The patient is not on a beta-bipin calcium channel bipin, potassium is 4.6 Vital Signs Vital Signs: Vital Signs Temperature 36.6 C 12/08/23 06:14 Pulse Rate 59 L 12/08/23 06:14 Respiratory Rate 100 H 12/08/23 06:14 Blood Pressure 147/55 H 12/08/23 06:14 Pulse Oximetry 100 12/08/23 06:14 Oxygen Delivery Room Air 12/08/23 06:14 Temperature 36.6 C 12/08/23 06:14 Pulse Rate 35 L 12/08/23 06:28 Respiratory Rate 15 12/08/23 06:28 Blood Pressure 147/55 H 12/08/23 06:28 Pulse Oximetry 100 12/08/23 06:28 Oxygen Delivery Room Air 12/08/23 06:14 Lab Data 12/08/23 06:26 12/08/23 06:26 Labs: Lab Results 12/08/23 Range/Units 06:26 WBC 8.6 (4.5-10.0) K/mm3 RBC 4.13 L (4.2-5.4) M/mm3 Hgb 12.4 (12.0-15.0) g/dL Hct 39.6 (37.0-47.0) % MCV 95.9 (80-100) fl MCH 30.0 (26-34) pg MCHC 31.3 L (32-36) g/dl RDW 13.2 (11.5-14.5) % Plt Count 202 (150-375) k/mm3 MPV 10.4 (7.4-10.4) fl Immature Gran % (Auto) 0.2 (0-0.5) % Neut % (Auto) 75.3 H (45.5-73.1) % Lymph % (Auto) 15.0 L (18.3-44.2) % Garden % (Auto) 5.6 (2.6-8.5) % Eos % (Auto) 3.4 (0-4.4) % Baso % (Auto) 0.5 (0.2-1.2) % Lymph # (Auto) 1.29 (0.9-3.2) K/mm3 Garden # (Auto) 0.5 (0.1-0.6) K/mm3 Eos # (Auto) 0.3 (0-0.3) K/mm3 Baso # (Auto) 0.0 (0.0-0.1) K/mm3 Abs Immat Gran (auto) 0.02 (0.00-0.031) K/mm3 Absolute Neuts (auto) 6.5 (1.3-6.7) K/mm3 Absolute Nucleated RBC 0.000 (0.0-0.012) K/mm3 Nucleated RBC % 0.0 (0.0-0.2) % PT 14.4 (11.1-14.7) Seconds INR 1.1 APTT 23.6 (22.3-36.8) Seconds Sodium 140 (137-145) mmol/L Potassium 4.6 (3.4-5.0) mmol/L Chloride 108 H (98-107) mmol/L Carbon Dioxide 23 (22-30) mmol/L Anion Gap 9 (4-12) mmol/L BUN 24 H D (7-17) mg/dL Creatinine 0.60 L (0.7-1.0) mg/dL Estim Creat Clear Calc Not Reportable Estimated GFR > 60 (59 - ) Glucose 130 H (65-110) mg/dL Calcium 9.1 (8.4-10.2) mg/dL Magnesium Pending Total Bilirubin 0.4 (0.2-1.3) mg/dL AST 21 (14-36) U/L ALT 12 (6-35) U/L Alkaline Phosphatase 107 (38-126) U/L Troponin I Pending Total Protein 7.0 (6.3-8.2) g/dL Albumin 3.7 (3.5-5.1) g/dL Lipase 124 (23-300) U/L Critical Care Time Critical Care Time Critical Care Time: Yes Total Critical Care Time: 30 Discharge Plan Discharge Clinical Impression: Bradycardia Patient Disposition: Still a Patient Condition: Stable Prescriptions: No Action lamotrigine 150 mg tablet 150 mg PO HS simvastatin 40 mg tablet 40 mg PO HS levothyroxine 25 mcg tablet 25 mcg PO DAILY lisinopril 40 mg tablet 40 mg PO DAILY fluoxetine 20 mg capsule 20 mg PO DAILY acetaminophen [Tylenol] 325 mg Tablet 650 mg PO Q6H PRN (Reason: Pain) magnesium hydroxide [Milk of Magnesia] 400 mg/5 mL Suspension 30 ml PO HS PRN (Reason: Constipation) Rx Instructions: give 30 ml by mouth every 24 hours as needed for constipation at bedtime if no bm in 3 days lithium carbonate 300 mg Capsule 300 mg PO HS bisacodyl 10 mg Suppository 10 mg RECTAL DAILY PRN (Reason: Constipation) Rx Instructions: q 24 hrs as needed for constipation daily if no results with MOM Fleet Enema 19-7 gram/118 mL Enema 118 ml RECTAL DAILY PRN (Reason: Constipation) Rx Instructions: q24 hrs as needed for constipation if no results 1 day after suppository magnesium citrate Solution 300 ml PO DAILY PRN (Reason: Constipation) Rx Instructions: give 300 ml by mouth every 24 hours as needed for constipation in am if no results after enema. if no results within 1 hours, contact MD immediately for further orders ondansetron 4 mg Tablet,Disintegrating 4 mg PO Q6H PRN (Reason: Nausea) cholecalciferol (vitamin D3) 25 mcg (1,000 unit) Capsule 25 mcg PO DAILY cyanocobalamin (vitamin B-12) 1,000 mcg Capsule 1,000 mcg PO DAILY lithium carbonate 150 mg capsule 150 mg PO DAILY ferrous sulfate 325 mg (65 mg iron) tablet 325 mg PO BID Qty: 60 0RF pantoprazole 40 mg tablet,delayed release (DR/EC) 40 mg PO QAM Qty: 30 0RF Follow-up/Referrals: Haseeb Brumfield MD [Primary Care Provider] -
[2023-12-08] MEDS: ASPIRIN 81 MG CHEWABLE TABLET 324 MG PO (06:44)
[2023-12-08] MEDS: ATROPINE SULFATE 1 MG/10 ML SYRINGE IV PUSH (06:44)
[2023-12-08] MEDS: SODIUM CHLORIDE 0.9% IV 1,000 ML 999 ML IV CONT (06:44)
[2023-12-08 06:47] LABS: Alanine Aminotransferase 12 U/L (6-35); Albumin Level 3.7 g/dL (3.5-5.1); Alkaline Phosphatase 107 U/L (38-126); Anion Gap 9 mmol/L (4-12); Aspartate Amino Transferase 21 U/L (14-36); Bilirubin,Total 0.4 mg/dL (0.2-1.3); Blood Urea Nitrogen 24 mg/dL (7-17); Calcium 9.1 mg/dL (8.4-10.2); Carbon Dioxide 23 mmol/L (22-30); Chloride 108 mmol/L (98-107); Estimated Glomerular Filt Rate > 60; Glucose 130 mg/dL (65-110); Lipase 124 U/L (23-300); Potassium 4.6 mmol/L (3.4-5.0); Sodium 140 mmol/L (137-145)
[2023-12-08 06:58] LABS: Troponin I < 0.012 ng/mL (0.000-0.034)
[2023-12-08 07:07] LABS: Magnesium 2.1 mg/dL (1.6-2.3)
--- NOTE | 2023-12-08 07:51 | PC.NURSE ---
Assumed care of pt. Remains unsystematic bradycardiac. Pt experiencing visual hallucinations, conversing with no one in the room. Seizure precautions continued.
--- NOTE | 2023-12-08 08:18 | PC.NURSE ---
This patient, Kelly Mcmahon, was admitted to Intensive Care Unit-8. Patient/family oriented to hospital policies and general routines including ID bracelet, bed and alarms, visiting hours, pain management, procedures, bathroom and other care routines, personal items, smoking policy, room service/diet, and visiting hours. Information on how to activate the Rapid Response Team has been discussed. Patient/Family are encouraged to report perceived risks to care and to ask questions if they do not understand what they are told or what they should do.
--- NOTE | 2023-12-08 09:17 | P.CONCA_ITS ---
Assessment and Plan Assessment and plan (1) Bradycardia: Code(s): R00.1 - Bradycardia, unspecified Status: Acute Assessment and Plan: In regards to bradycardia, she presents to the hospital with syncope while she was watching TV. On review of the EKG she has a right bundle branch block and very prolonged first-degree heart block however on telemetry she has 2-1 block. Not on AV joanna blocking agents at home. Electrolytes looked unremarkable. Currently heart rates 30-35 beats per minute with stable blood pressure systolic 120-140. -she will require a pacemaker. I did call the transfer center and currently in the process of transferring this patient to 1 of the [facility] facilities for pacemaker.. -in the meanwhile we will start dopamine drip to try increased heart rate if possible. -avoid AV joanna blocking agents. Total time spent on this patient with coordination of care with the transfer, discussing with the patient, discussing with ICU team and her nurse was 83 minutes (2) Hypertension: Code(s): I10 - Essential (primary) hypertension Status: Chronic Assessment and Plan: Blood pressure stable. Avoid starting patient on her lisinopril that she takes at home. (3) Hypothyroidism: Code(s): E03.9 - Hypothyroidism, unspecified Status: Acute Plan Continue levothyroxine. Check TSH History of Present Illness History of Present Illness Consult date/time: Date of service 12/08/23 09:17 Requesting physician: Silvino Carrizales MD Consult reason: Other (Complete heart block) Reason For Visit: Bradycardia Narrative: This 68 years old female with past history of bipolar disorder, hypertension, seizure disorder, CVA was brought in from longterm because apparently was in the longterm watching TV when she briefly passed out. Consult was called for bradycardia. Heart rates has been 30s. Blood pressure systolic 120-140. Denies dizziness, lightheadedness. Giselle not on beta-giselle or calcium channel at home but on lithium. On telemetry she has 2-1 block. Heart rates 30-35 beats per minute. EKG reviewed and asthma so shows sinus bradycardia, prolonged first-degree heart block, right bundle branch block, diffuse T inversion. Blood counts, creatinine and electrolytes, liver enzymes looked unremarkable. Chest x-ray shows possible opacity left lower lobe. Review of Systems Constitutional: Constitutional: Denies chills, Denies fever(s) and Denies poor appetite Comments: Feels tired Eyes: Eyes: Denies eye discharge, Denies loss of vision and Denies eye pain ENT: Denies dizziness, Denies epistaxis, Denies nasal congestion and Denies s ore throat Cardiovascular: Cardiovascular: Denies chest pain, Denies syncope, Denies pedal edema, Denies leg edema, Denies palpitations, Denies dyspnea, Denies dyspnea on exertion and Denies orthopnea Respiratory: Respiratory: Denies cough, Denies dyspnea, Denies dyspnea on exertion and Denies wheezing Gastrointestinal: Gastrointestinal: Denies abdominal pain, Denies diarrhea, Denies nausea and Denies vomiting Genitourinary: Genitourinary: Denies hematuria, Denies genital lesions and Denies dysuria Musculoskeletal: Musculoskeletal: Denies arthralgias, Denies joint swelling and Denies numbness Integumentary/Breasts: Skin/Breast: Denies pruritus and Denies rash Neurologic: Denies dizziness, Denies syncope, Denies loss of vision and Denies numbness Psychiatric: Psychiatric: Denies anxiety and Denies depression Endocrine: Endocrine: Denies cold intolerance, Denies heat intolerance and Denies palpitations Hematologic/Lymphatic: Hematologic/Lymphatic: Denies easy bleeding and Denies easy bruising Allergic/Immunologic: Allergic/Immunologic: Denies urticaria and Denies wheezing PMFSH Past Medical History Medical History Abnormal small bowel x-ray Anxiety Arthritis Bipolar disorder Cerebrovascular accident Depression Hip fracture, left (05/06/17) Hypertension Hypothyroidism Knee osteomyelitis Nausea and vomiting in adult Schizophrenia Seizures Patient denies. Surgical History Surgical History History of inguinal hernia repair History of left knee replacement Subsequent hardware removal due to infection. History of open reduction and internal fixation (ORIF) procedure Repair of left hip fracture. Family History Family History Mother Family history of heart disease in male family member before age 55 Father Acute myocardial infarction Other Diabetes mellitus Family history of malignant neoplasm Hypertension Social History Social History Social History: Surrogate medical decision maker: Jessica Mcmahon, [id number]. Code status: Full code. Smoking status: Never smoker Second hand tobacco smoke exposure: No Alcohol intake: never Substance use: never Substance use type: does not use Lack of Transportation: No Lack of Food: Never True Current Housing: I Have Housing Concerned About Future Housing: No Difficulty Paying Gas/Electric Bills: No Difficulty Paying for Meds: No Currently Unemployed: No Education: Decline to Answer Difficulty w/ Childcare or Family Care: No Living arrangements: with family Additional living arrangements comments: Lives with brother and [id number]. Currently at [facility] following removal of left knee replacement due to infection. Spiritual care concerns: No Meds Home Medications and Allergies Home Medications Medication Instructions Recorded Confirmed Type lamotrigine 150 mg tablet 150 mg PO HS 08/17/20 12/08/23 History levothyroxine 25 mcg tablet 25 mcg PO DAILY 08/17/20 12/08/23 History lisinopril 40 mg tablet 40 mg PO DAILY 08/17/20 12/08/23 History simvastatin 40 mg tablet 40 mg PO HS 08/17/20 12/08/23 History lithium carbonate 150 mg capsule 150 mg PO DAILY 05/31/21 12/08/23 History ferrous sulfate 325 mg (65 mg 325 mg PO BID #60 tabs 06/03/21 12/08/23 Rx iron) tablet pantoprazole 40 mg tablet,delayed 40 mg PO QAM #30 tabs 06/06/21 12/08/23 Rx release acetaminophen 325 mg tablet 650 mg PO Q6H PRN Pain 01/28/22 12/08/23 History (Tylenol) bisacodyl 10 mg rectal suppository 10 mg RECTAL DAILY PRN Constipation 01/28/22 12/08/23 History lithium carbonate 300 mg capsule 300 mg PO DAILY 01/28/22 12/08/23 History magnesium citrate 300 ml PO DAILY PRN Constipation 01/28/22 12/08/23 History magnesium hydroxide 400 mg/5 mL 30 ml PO HS PRN Constipation 01/28/22 12/08/23 History oral suspension (Milk of Magnesia) ondansetron 4 mg disintegrating 4 mg PO Q6H PRN Nausea 01/28/22 12/08/23 History tablet sodium phosphates 19 gram-7 118 ml RECTAL DAILY PRN 01/28/22 12/08/23 History gram/118 mL enema (Fleet Enema) Constipation ascorbic acid (vitamin C) 500 mg 500 mg PO DAILY 12/08/23 12/08/23 History tablet ergocalciferol (vitamin D2) 50,000 50,000 unit PO DAILY 12/08/23 12/08/23 History unit tablet fluoxetine 40 mg capsule 40 mg PO DAILY 12/08/23 12/08/23 History guaifenesin 100 mg/5 mL oral 100 mg PO Q4H PRN Cough 12/08/23 12/08/23 History liquid (Marybeth-Tussin) ketoconazole 2 % topical cream 1 applic topical DAILY 12/08/23 12/08/23 History loperamide 2 mg capsule 2 mg PO DAILY PRN Diarrhea 12/08/23 12/08/23 History (Anti-Diarrheal (loperamide)) mecobalamin (vitamin B12) 500 mcg 500 mcg PO DAILY 12/08/23 12/08/23 History chewable tablet meloxicam 7.5 mg tablet 7.5 mg PO DAILY 12/08/23 12/08/23 History risperidone 0.5 mg tablet 0.5 mg PO BID 12/08/23 12/08/23 History Allergies Allergy/AdvReac Type Severity Reaction Status Date / Time meperidine Allergy Unknown Vomiting Verified 12/08/23 06:29 Penicillins Allergy Unknown Rash Verified 12/08/23 06:29 Vital Signs Vital Signs - 24 hr 12/08/23 06:14 12/08/23 06:14 12/08/23 06:14 Temperature 36.6 C Pulse Rate 59 L Respiratory Rate 16 Blood Pressure 147/55 H Pulse Oximetry 100 100 100 Oxygen Delivery Room Air Room Air Room Air Fraction of Inspired Oxygen 12/08/23 06:28 12/08/23 08:08 12/08/23 07:02 Temperature 36.6 C 36.8 C Pulse Rate 35 L 34 L 30 L Respiratory Rate 15 20 16 Blood Pressure 147/55 H 141/62 H 112/53 L Pulse Oximetry 100 100 99 Oxygen Delivery Fraction of Inspired Oxygen 12/08/23 07:17 12/08/23 08:46 12/08/23 08:32 Temperature 36.4 C Pulse Rate 38 L 36 L Respiratory Rate 15 14 Blood Pressure 132/45 L 127/59 L Pulse Oximetry 100 100 Oxygen Delivery Room Air Fraction of Inspired Oxygen 21 12/08/23 08:32 Temperature Pulse Rate 36 L Respiratory Rate Blood Pressure Pulse Oximetry Oxygen Delivery Fraction of Inspired Oxygen Exam Const: General: cooperative, comfortable, no acute distress, alert, awake and well nourished Nutritional Appearance: well nourished Orientation/consci ousness: patient oriented x3 HENMT: Head: normal to inspection, normocephalic and atraumatic Ears: hearing grossly normal bilaterally Face/Nose/Sinus: Normal external nose present, Normal nares present, no nasal discharge noted, normal facial exam and No erythema Face and sinus: normal facial exam and no erythema Mouth: No d rooling and No restricted motion Throat: uvula midline Eyes: General: appearance normal, both eyes and all related structures Alignment and Position: position normal Conjunctivae: conjunctivae normal Sclera: sclerae normal Direct Ophthalmoscopy: No photophobia Neck: Neck: normal visual inspection and no JVD Thyroid: thyroid normal Carotids: no bruits Lymphatic: lymphedema not noted Chest: Chest palpation & inspection: normal inspection of the chest and no tenderness Resp: Effort & Inspection: normal respiratory effort and no nasal flaring Auscultation: clear to auscultation bilaterally, no crackles, no rales and no wheezes Cardio: Jugular venous distension: no JVD Rate: regular rate and bradycardic Rhythm: regular rhythm Heart sounds: S1 normal heart sound present, S2 normal heart sound present, no gallops, no murmurs and no rubs GI: Inspection: non-distended GI Palp: No abdominal tenderness and No Soft to palpation Auscultation: normal bowel sounds Rectal Exam: deferred : General: No no CVA tenderness Back/Spine/Pelvis: Back: No no CVA tenderness Cervical Spine: cervical ROM normal Skin: General skin exam: normal color and rashes and/or lesions noted Neuro: General: patient oriented x3 Cranial nerves: No CN's II-XII intact bilaterally Speech: normal speech Motor exam (neuro): no tremors Extrem: General: normal to inspection and pedal edema present Psych: Appearance: grossly normal and well kempt Speech and movement: Normal speech and movement present Affect: normal affect Results Labs and Meds 12/08/23 06:26 12/08/23 06:26 Lab results: Cardiac Enzymes 12/08/23 Range/Units 06:26 AST 21 (14-36) U/L Troponin I < 0.012 (0.000-0.034) ng/mL Coagulation 12/08/23 Range/Units 06:26 PT 14.4 (11.1-14.7) Seconds APTT 23.6 (22.3-36.8) Seconds CBC 12/08/23 Range/Units 06:26 WBC 8.6 (4.5-10.0) K/mm3 RBC 4.13 L (4.2-5.4) M/mm3 Hgb 12.4 (12.0-15.0) g/dL Hct 39.6 (37.0-47.0) % Plt Count 202 (150-375) k/mm3 Lymph # (Auto) 1.29 (0.9-3.2) K/mm3 Stanly # (Auto) 0.5 (0.1-0.6) K/mm3 Eos # (Auto) 0.3 (0-0.3) K/mm3 Baso # (Auto) 0.0 (0.0-0.1) K/mm3 Comprehensive Metabolic Panel 12/08/23 Range/Units 06:26 Sodium 140 (137-145) mmol/L Potassium 4.6 (3.4-5.0) mmol/L Chloride 108 H (98-107) mmol/L Carbon Dioxide 23 (22-30) mmol/L BUN 24 H D (7-17) mg/dL Creatinine 0.60 L (0.7-1.0) mg/dL Glucose 130 H (65-110) mg/dL Calcium 9.1 (8.4-10.2) mg/dL AST 21 (14-36) U/L ALT 12 (6-35) U/L Alkaline Phosphatase 107 (38-126) U/L Total Protein 7.0 (6.3-8.2) g/dL Albumin 3.7 (3.5-5.1) g/dL Intake and Output 12/07/23 12/08/23 12/08/23 23:59 07:59 15:59 Intake Total 1000 Balance 1000 Intake: IV 1000 Sodium Chloride 0.9% IV 1,000 1000 ml @ 999 mls/hr IV CONT .Q1H1M STA Rx#:[id number] Patient Weight 12/08/23 23:59 Weight 102.6 kg
[2023-12-08 09:55] LABS: Troponin I 0.025 ng/mL (0.000-0.034)
--- NOTE | 2023-12-08 10:11 | P.CONIN_ITS ---
Assessment and Plan Assessment and plan (1) Complete heart block: Code(s): I44.2 - Atrioventricular block, complete Status: Acute Assessment and Plan: Discussed with Cardiology Blood pressure is adequate at this time and patient is asymptomatic Electrolytes acceptable Patient not on any beta-bipin or calcium channel blockers Check TSH Check lithium level Telemetry monitoring Start dopamine Cardiology plans to transfer her to [facility] for evaluation for permanent pacemaker placement (2) Syncope: Code(s): R55 - Syncope and collapse Status: Acute Assessment and Plan: Likely secondary to complete heart block Asymptomatic at this time. (3) Psychiatric illness: Code(s): F99 - Mental disorder, not otherwise specified Status: Acute Assessment and Plan: Continue risperidone and fluoxetine Check lithium level Hold lithium until then (4) Seizures: Code(s): R56.9 - Unspecified convulsions Status: Acute Assessment and Plan: Not sure of the accuracy of this diagnosis. Patient has this in her past medical history. Will Continue lamotrigine at home dose. She is not on any and other anti epileptic drugs Plan DVT prophylaxis -Lovenox Nutrition -diet ordered s Code Status - Full Code Total Critical Care Time - 30 minutes Due to a high probability of clinically significant, life threatening deterioration, the patient required my highest level of preparedness to intervene emergently and I personally spent this critical care time directly and personally managing the patient. This critical care time included obtaining a history; examining the patient; pulse oximetry; ordering and review of studies; arranging urgent treatment with development of a management plan; evaluation of patient's response to treatment; frequent reassessment; and discussions with other providers. It was exclusive of separately billable procedures and treating other patients and teaching time. 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 Patient states that she was watching a TV and suddenly passed out and does not remember anything. Patient is a poor historian does not able to provide any further history and at this time denies any complaints whatsoever. Patient denies fever, chest pain, shortness of breath, cough, nausea vomiting, abdominal pain,, diarrhea, headache or constipation. She does complain of intermittent abdominal pain and knee pain at this time she denies any all other systems were reviewed and were negative Workup in the ER showed to be patient in complete heart block with heart rate in 30s. Blood pressure was adequate. WBC normal. Patient is not on any beta- bipin or calcium channel bipin. Creatinine was 0.6 BUN 24 potassium magnesium and troponin were normal. Cardiology was salted and patient was a dmitted to ICU for further evaluation management. Review of Systems Review of Systems: All systems reviewed & are unremarkable except as noted in HPI and below (HPI) [facility] Past Medical History Medical History Abnormal small bowel x-ray Anxiety Arthritis Bipolar disorder Cerebrovascular accident Depression Hip fracture, left (05/06/17) Hypertension Hypothyroidism Knee osteomyelitis Nausea and vomiting in adult Schizophrenia Seizures Patient denies. Surgical History Surgical History History of inguinal hernia repair History of left knee replacement Subsequent hardware removal due to infection. History of open reduction and internal fixation (ORIF) procedure Repair of left hip fracture. Family History Family History Mother Family history of heart disease in male family member before age 55 Father Acute myocardial infarction Other Diabetes mellitus Family history of malignant neoplasm Hypertension Social History Social History Social History: Surrogate medical decision maker: Jessica Mcmahon, [id number]. Code status: Full code. Smoking status: Never smoker Second hand tobacco smoke exposure: No Alcohol intake: never Substance use: never Substance use type: does not use Lack of Transportation: No Lack of Food: Never True Current Housing: I Have Housing Concerned About Future Housing: No Difficulty Paying Gas/Electric Bills: No Difficulty Paying for Meds: No Currently Unemployed: No Education: Decline to Answer Difficulty w/ Childcare or Family Care: No Living arrangements: with family Additional living arrangements comments: Lives with brother and [id number]. Currently at [facility] following removal of left knee replacement due to infection. Spiritual care concerns: No Meds Home Medications and Allergies Home Medications Medication Instructions Recorded Confirmed Type lamotrigine 150 mg tablet 150 mg PO HS 08/17/20 12/08/23 History levothyroxine 25 mcg tablet 25 mcg PO DAILY 08/17/20 12/08/23 History lisinopril 40 mg tablet 40 mg PO DAILY 08/17/20 12/08/23 History simvastatin 40 mg tablet 40 mg PO HS 08/17/20 12/08/23 History lithium carbonate 150 mg capsule 150 mg PO DAILY 05/31/21 12/08/23 History ferrous sulfate 325 mg (65 mg 325 mg PO BID #60 tabs 06/03/21 12/08/23 Rx iron) tablet pantoprazole 40 mg tablet,delayed 40 mg PO QAM #30 tabs 06/06/21 12/08/23 Rx release acetaminophen 325 mg tablet 650 mg PO Q6H PRN Pain 01/28/22 12/08/23 History (Tylenol) bisacodyl 10 mg rectal suppository 10 mg RECTAL DAILY PRN Constipation 01/28/22 12/08/23 History lithium carbonate 300 mg capsule 300 mg PO DAILY 01/28/22 12/08/23 History magnesium citrate 300 ml PO DAILY PRN Constipation 01/28/22 12/08/23 History magnesium hydroxide 400 mg/5 mL 30 ml PO HS PRN Constipation 01/28/22 12/08/23 History oral suspension (Milk of Magnesia) ondansetron 4 mg disintegrating 4 mg PO Q6H PRN Nausea 01/28/22 12/08/23 History tablet sodium phosphates 19 gram-7 118 ml RECTAL DAILY PRN 01/28/22 12/08/23 History gram/118 mL enema (Fleet Enema) Constipation ascorbic acid (vitamin C) 500 mg 500 mg PO DAILY 12/08/23 12/08/23 History tablet ergocalciferol (vitamin D2) 50,000 50,000 unit PO DAILY 12/08/23 12/08/23 History unit tablet fluoxetine 40 mg capsule 40 mg PO DAILY 12/08/23 12/08/23 History guaifenesin 100 mg/5 mL oral 100 mg PO Q4H PRN Cough 12/08/23 12/08/23 History liquid (Marybeth-Tussin) ketoconazole 2 % topical cream 1 applic topical DAILY 12/08/23 12/08/23 History loperamide 2 mg capsule 2 mg PO DAILY PRN Diarrhea 12/08/23 12/08/23 History (Anti-Diarrheal (loperamide)) mecobalamin (vitamin B12) 500 mcg 500 mcg PO DAILY 12/08/23 12/08/23 History chewable tablet meloxicam 7.5 mg tablet 7.5 mg PO DAILY 12/08/23 12/08/23 History risperidone 0.5 mg tablet 0.5 mg PO BID 12/08/23 12/08/23 History Allergies Allergy/AdvReac Type Severity Reaction Status Date / Time meperidine Allergy Unknown Vomiting Verified 12/08/23 06:29 Penicillins Allergy Unknown Rash Verified 12/08/23 06:29 Vital Signs Vital Signs - 24 hr 12/08/23 06:14 12/08/23 06:14 12/08/23 06:14 Temperature 36.6 C Pulse Rate 59 L Respiratory Rate 16 Blood Pressure 147/55 H Pulse Oximetry 100 100 100 Oxygen Delivery Room Air Room Air Room Air Fraction of Inspired Oxygen 12/08/23 06:28 12/08/23 08:08 12/08/23 07:02 Temperature 36.6 C 36.8 C Pulse Rate 35 L 34 L 30 L Respiratory Rate 15 20 16 Blood Pressure 147/55 H 141/62 H 112/53 L Pulse Oximetry 100 100 99 Oxygen Delivery Fraction of Inspired Oxygen 12/08/23 07:17 12/08/23 08:46 12/08/23 08:32 Temperature 36.4 C Pulse Rate 38 L 36 L Respiratory Rate 15 14 Blood Pressure 132/45 L 127/59 L Pulse Oximetry 100 100 Oxygen Delivery Room Air Fraction of Inspired Oxygen 21 12/08/23 08:32 Temperature Pulse Rate 36 L Respiratory Rate Blood Pressure Pulse Oximetry Oxygen Delivery Fraction of Inspired Oxygen Exam Narrative: General: Pt is alert awake and in NAD Lungs/Chest: Trachea central Clear BS B/L, No crackles or wheezing. Cardiac: RRR. Normal S1 S2. No murmurs Circulation: Pedal pulses are intact and symmetrical. Abdomen: Normal bowel sounds. Obese. Soft. NT. ND. Extremities: No clubbing, cyanosis or edema. Warm : Cam in place Neurologic: Follows commands. Moves all 4 extremities PERRL AO x3 no FND heparin Skin: No Rash Results Labs 12/08/23 06:26 12/08/23 06:26 Labs: Impressions Chest X-Ray 12/08/23 08:05 IMPRESSION: 1. Mild opacities in the left lower lung zone which could represent atelectasis, asymmetric mild pulmonary edema or pneumonia. 2. Cardiomegaly with enlargement of the central pulmonary arteries consistent with pulmonary arterial hypertension. Short CBC 12/08/23 Range/Units 06:26 WBC 8.6 (4.5-10.0) K/mm3 Hgb 12.4 (12.0-15.0) g/dL Hct 39.6 (37.0-47.0) % Plt Count 202 (150-375) k/mm3 BMP 12/08/23 06:26 Sodium 140 Potassium 4.6 Chloride 108 H Carbon Dioxide 23 BUN 24 H D Creatinine 0.60 L Glucose 130 H Calcium 9.1 Cardiac Enzymes 12/08/23 12/08/23 Range/Units 06:26 09:14 Troponin I < 0.012 0.025 D (0.000-0.034) ng/mL Liver Function 12/08/23 Range/Units 06:26 Total Bilirubin 0.4 (0.2-1.3) mg/dL AST 21 (14-36) U/L ALT 12 (6-35) U/L Alkaline Phosphatase 107 (38-126) U/L Albumin 3.7 (3.5-5.1) g/dL ECG Interpretation: EKG shows sinus rhythm with complete heart block. Junctional escape rhythm
[2023-12-08] MEDS: DOPamine 400 MG/D5W 250 ML 400 MG/250 ML BAG 19.24 MG IV CONT (10:36)
[2023-12-08] MEDS: MICONAZOLE NITRATE 2% CREAM 30 GM TUBE 1 APPLIC TOPICAL (10:37)
[2023-12-08] MEDS: LACTATED RINGERS 1,000 ML 100 ML IV CONT (10:37)
[2023-12-08] MEDS: PERFLUTREN LIPID MICROSPHERES 1.5 ML VIAL DILUTED TO 10 ML TOTAL VOLUME IV PUSH (11:50)
--- NOTE | 2023-12-08 12:11 | IVDEFINITY ---
Prior to administration of IV Definity the patient was educated on the risks and benefits of the imaging enhancing agent including potential adverse side effects. The patient verbalized understanding. Allergies were verified. No exclusion criteria were identified and at least one of the following inclusion criteria were met: 1) physician request, 2) patient technically difficult to image (per the [place] [employer] guidelines of two or more segments not discernable within the apical view), or 3) questionable left ventricular function. ?
--- NOTE | 2023-12-08 12:13 | PM.IMHP ---
H&P: HPI History of Present Illness Date/Time: 12/08/23 12:13 Chief Complaint: Syncope Narrative: This is a 68-year-old female who presents from the [place] [facility] with an episode of passing out and also noted to have convulsing and tensing her muscles during that episode. Patient herself is a very poor historian. Upon arrival to the ED patient was noted to be bradycardic with rate of 35. Blood pressure stable. EKG showed complete heart block. Laboratory evaluation revealed normal cbc unremarkable came panel lipase 124. Magnesium normal. Patient admitted to the ICU for further treatment. She has been started on dopamine drip with improvement in her heart rate. Review of Systems Review of Systems: - CONSTITUTIONAL: Denies weight loss, fever and chills. - HEENT: Denies changes in vision and hearing - RESPIRATORY: Denies SOB and cough. - CV: Denies palpitations and CP. - GI: Denies abdominal pain, nausea, vomiting and diarrhea. - : Denies dysuria and urinary frequency. - MSK: Denies myalgia and joint pain. - SKIN: Denies rash and pruritus. - NEUROLOGICAL: Denies headache and Reports syncope. - PSYCHIATRIC: Denies recent changes in mood. Denies anxiety and depression. [facility] Past Medical History Medical History Abnormal small bowel x-ray Anxiety Arthritis Bipolar disorder Cerebrovascular accident Depression Hip fracture, left (05/06/17) Hypertension Hypothyroidism Knee osteomyelitis Nausea and vomiting in adult Schizophrenia Seizures Patient denies. Surgical History Surgical History History of inguinal hernia repair History of left knee replacement Subsequent hardware removal due to infection. History of open reduction and internal fixation (ORIF) procedure Repair of left hip fracture. Family History Family History Mother Family history of heart disease in male family member before age 55 Father Acute myocardial infarction Other Diabetes mellitus Family history of malignant neoplasm Hypertension Social History Social History Social History: Surrogate medical decision maker: Jessica Mcmahon, [id number]. Code status: Full code. Smoking status: Never smoker Alcohol intake: never Substance use: never Substance use type: does not use Do You Feel Safe in your Home?: Yes Lack of Transportation: No Lack of Food: Never True Current Housing: I Have Housing Concerned About Future Housing: No Difficulty Paying Gas/Electric Bills: No Difficulty Paying for Meds: No Currently Unemployed: No Education: Don't Know Difficulty w/ Childcare or Family Care: No Living arrangements: with family Additional living arrangements comments: Lives with brother and [id number]. Currently at [facility] following removal of left knee replacement due to infection. Spiritual care concerns: No Meds Home Medications and Allergies Home Medications Medication Instructions Recorded Confirmed Type lamotrigine 150 mg tablet 150 mg PO HS 08/17/20 12/08/23 History levothyroxine 25 mcg tablet 25 mcg PO DAILY 08/17/20 12/08/23 History lisinopril 40 mg tablet 40 mg PO DAILY 08/17/20 12/08/23 History simvastatin 40 mg tablet 40 mg PO HS 08/17/20 12/08/23 History lithium carbonate 150 mg capsule 150 mg PO DAILY 05/31/21 12/08/23 History ferrous sulfate 325 mg (65 mg 325 mg PO BID #60 tabs 06/03/21 12/08/23 Rx iron) tablet pantoprazole 40 mg tablet,delayed 40 mg PO QAM #30 tabs 06/06/21 12/08/23 Rx release acetaminophen 325 mg tablet 650 mg PO Q6H PRN Pain 01/28/22 12/08/23 History (Tylenol) bisacodyl 10 mg rectal suppository 10 mg RECTAL DAILY PRN Constipation 01/28/22 12/08/23 History lithium carbonate 300 mg capsule 300 mg PO DAILY 01/28/22 12/08/23 History magnesium citrate 300 ml PO DAILY PRN Constipation 01/28/22 12/08/23 History magnesium hydroxide 400 mg/5 mL 30 ml PO HS PRN Constipation 01/28/22 12/08/23 History oral suspension (Milk of Magnesia) ondansetron 4 mg disintegrating 4 mg PO Q6H PRN Nausea 01/28/22 12/08/23 History tablet sodium phosphates 19 gram-7 118 ml RECTAL DAILY PRN 01/28/22 12/08/23 History gram/118 mL enema (Fleet Enema) Constipation ascorbic acid (vitamin C) 500 mg 500 mg PO DAILY 12/08/23 12/08/23 History tablet ergocalciferol (vitamin D2) 50,000 50,000 unit PO DAILY 12/08/23 12/08/23 History unit tablet fluoxetine 40 mg capsule 40 mg PO DAILY 12/08/23 12/08/23 History guaifenesin 100 mg/5 mL oral 100 mg PO Q4H PRN Cough 12/08/23 12/08/23 History liquid (Marybeth-Tussin) ketoconazole 2 % topical cream 1 applic topical DAILY 12/08/23 12/08/23 History loperamide 2 mg capsule 2 mg PO DAILY PRN Diarrhea 12/08/23 12/08/23 History (Anti-Diarrheal (loperamide)) mecobalamin (vitamin B12) 500 mcg 500 mcg PO DAILY 12/08/23 12/08/23 History chewable tablet meloxicam 7.5 mg tablet 7.5 mg PO DAILY 12/08/23 12/08/23 History risperidone 0.5 mg tablet 0.5 mg PO BID 12/08/23 12/08/23 History Allergies Allergy/AdvReac Type Severity Reaction Status Date / Time meperidine Allergy Unknown Vomiting Verified 12/08/23 06:29 Penicillins Allergy Unknown Rash Verified 12/08/23 06:29 Vital Signs Vital Signs - 24 hr 12/08/23 06:14 12/08/23 06:14 12/08/23 06:14 Temperature 97.8 F Pulse Rate 59 L Respiratory Rate 16 Blood Pressure 147/55 H Pulse Oximetry 100 100 100 Oxygen Delivery Room Air Room Air Room Air Fraction of Inspired Oxygen 12/08/23 06:28 12/08/23 08:08 12/08/23 07:02 Temperature 97.9 F 98.2 F Pulse Rate 35 L 34 L 30 L Respiratory Rate 15 20 16 Blood Pressure 147/55 H 141/62 H 112/53 L Pulse Oximetry 100 100 99 Oxygen Delivery Fraction of Inspired Oxygen 12/08/23 07:17 12/08/23 08:46 12/08/23 08:32 Temperature 97.6 F Pulse Rate 38 L 36 L Respiratory Rate 15 14 Blood Pressure 132/45 L 127/59 L Pulse Oximetry 100 100 Oxygen Delivery Room Air Fraction of Inspired Oxygen 21 12/08/23 08:32 12/08/23 10:36 12/08/23 10:00 Temperature Pulse Rate 36 L 34 L 33 L Respiratory Rate 13 Blood Pressure 137/53 L Pulse Oximetry 100 Oxygen Delivery Fraction of Inspired Oxygen 12/08/23 10:00 12/08/23 09:00 Temperature Pulse Rate 33 L Respiratory Rate Blood Pressure Pulse Oximetry Oxygen Delivery Room Air Fraction of Inspired Oxygen Exam Narrative: GENERAL: Well-appearing, well-nourished, and in no acute distress. HEAD: Normocephalic, atraumatic. EYES: PERRLA and EOMI. ENT: Nares clear, no rhinorrhea or epistaxis. Mucous membranes moist. NECK: Supple. CHEST: Clear to auscultation. No respiratory distress. HEART: bradycardic, No murmur heard. Normal peripheral pulses. ABDOMEN: Soft, nontender, nondistended, normal active bowel sounds. EXTREMITIES: Normal range of motion. No edema. SKIN: Warm, dry, no rash. NEURO: No focal deficits. Alert and oriented x3. PSYCH: Normal mood and affect. H&P: Results Labs Labs: Short CBC 12/08/23 Range/Units 06:26 WBC 8.6 (4.5-10.0) K/mm3 Hgb 12.4 (12.0-15.0) g/dL Hct 39.6 (37.0-47.0) % Plt Count 202 (150-375) k/mm3 BMP 12/08/23 06:26 Sodium 140 Potassium 4.6 Chloride 108 H Carbon Dioxide 23 BUN 24 H D Creatinine 0.60 L Glucose 130 H Calcium 9.1 Cardiac Enzymes 12/08/23 12/08/23 Range/Units 06:26 09:14 Troponin I < 0.012 0.025 D (0.000-0.034) ng/mL Liver Function 12/08/23 Range/Units 06:26 Total Bilirubin 0.4 (0.2-1.3) mg/dL AST 21 (14-36) U/L ALT 12 (6-35) U/L Alkaline Phosphatase 107 (38-126) U/L Albumin 3.7 (3.5-5.1) g/dL Assessment and Plan Assessment and plan (1) Complete heart block: Code(s): I44.2 - Atrioventricular block, complete Status: Acute (2) Syncope: Code(s): R55 - Syncope and collapse Status: Acute (3) Hypothyroidism: Code(s): E03.9 - Hypothyroidism, unspecified Status: Acute (4) Seizures: Code(s): R56.9 - Unspecified convulsions Status: Acute (5) HTN (hypertension): Code(s): I10 - Essential (primary) hypertension Status: Acute (6) Bipolar disorder: Code(s): F31.9 - Bipolar disorder, unspecified Status: Acute Plan This is a 68-year-old female who presents from the [place] [facility] with an episode of passing out and also noted to have convulsing and tensing her muscles during that episode. Upon arrival to the ED patient was noted to be bradycardic with rate of 35. Blood pressure stable. EKG showed complete heart block. Laboratory evaluation revealed normal cbc unremarkable came panel lipase 124. Magnesium normal. Troponin negative Patient admitted to the ICU for further treatment. Cardiology consulted. Plan for transfer for pacemaker placement. In the interim on dopamine drip. Not on AV joanna bipin at home. Hypertension Hyperlipidemia Hypothyroidism on levothyroxine Bipolar disorder on risperidone fluoxetine and lithium Seizure disorder on lamotrigine DVT prophylaxis Lovenox Code status full code Hospitalist [facility] Advance Care Plan I have confirmed that the patient's Advanced Care Plan is present, code status is documented, or surrogate decision maker is listed in patient medical record.: Yes Medication Reconciliation I have utilized all available resources to obtain, update and review the patients current medications (includes all prescriptions, OTC, herbals, cannabis, and nutritional supplements).: Yes
[2023-12-08 12:29] LABS: MRSA (PCR) DETECTED (NOT DETECTE)
[2023-12-08 12:37] LABS: Free T4 Free Thyroxine Reflex 1.08 ng/dL (0.78-2.19)
[2023-12-08 13:04] LABS: Troponin I 0.048 ng/mL (0.000-0.034)
[2023-12-08 13:19] LABS: Lithium 0.7 mmol/L (0.6-1.2)
--- NOTE | 2023-12-08 13:56 | P.TS_ITS ---
Transfer Discharge Sum: Prov Provider Date of admission: 12/08/23 07:01 Primary care physician: Haseeb Brumfield MD Admitting clinician: Corey Acevedo MD Consults: 12/08/23 Consult to Physician Routine Comment: Consulting Provider: Nile Sanders Reason for consultation: bradycardia Has provider been notified: Yes Consult to Physician Routine Comment: Consulting Provider: Dante Holliday Reason for consultation: bradycardia Has provider been notified: Yes DS: Admitting Diagnosis Discharge Date 12/08/2023 Admitting Diagnosis syncope DS: Discharge Diagnosis Discharge Diagnosis (1) Complete heart block: Code(s): I44.2 - Atrioventricular block, complete Status: Acute (2) Syncope: Code(s): R55 - Syncope and collapse Status: Acute (3) Hypothyroidism: Code(s): E03.9 - Hypothyroidism, unspecified Status: Acute (4) Seizures: Code(s): R56.9 - Unspecified convulsions Status: Acute (5) HTN (hypertension): Code(s): I10 - Essential (primary) hypertension Status: Acute (6) Bipolar disorder: Code(s): F31.9 - Bipolar disorder, unspecified Status: Acute Transfer Discharge Sum: Med Medications Active and Home Medications: Home Medications lamotrigine 150 mg tablet 150 mg PO HS 08/17/20 [History Confirmed 12/08/23] levothyroxine 25 mcg tablet 25 mcg PO DAILY 08/17/20 [History Confirmed 12/08/23] lisinopril 40 mg tablet 40 mg PO DAILY 08/17/20 [History Confirmed 12/08/23] simvastatin 40 mg tablet 40 mg PO HS 08/17/20 [History Confirmed 12/08/23] lithium carbonate 150 mg capsule 150 mg PO DAILY 05/31/21 [History Confirmed 12/08/23] ferrous sulfate 325 mg (65 mg iron) tablet 325 mg PO BID #60 tabs 06/03/21 [Rx Confirmed 12/08/23] pantoprazole 40 mg tablet,delayed release 40 mg PO QAM #30 tabs 06/06/21 [Rx Confirmed 12/08/23] acetaminophen 325 mg tablet (Tylenol) 650 mg PO Q6H PRN Pain 01/28/22 [History Confirmed 12/08/23] bisacodyl 10 mg rectal suppository 10 mg RECTAL DAILY PRN Constipation 01/28/22 [History Confirmed 12/08/23] lithium carbonate 300 mg capsule 300 mg PO DAILY 01/28/22 [History Confirmed 12/08/23] magnesium citrate 300 ml PO DAILY PRN Constipation 01/28/22 [History Confirmed 12/08/23] magnesium hydroxide 400 mg/5 mL oral suspension (Milk of Magnesia) 30 ml PO HS PRN Constipation 01/28/22 [History Confirmed 12/08/23] ondansetron 4 mg disintegrating tablet 4 mg PO Q6H PRN Nausea 01/28/22 [History Confirmed 12/08/23] sodium phosphates 19 gram-7 gram/118 mL enema (Fleet Enema) 118 ml RECTAL DAILY PRN Constipation 01/28/22 [History Confirmed 12/08/23] ascorbic acid (vitamin C) 500 mg tablet 500 mg PO DAILY 12/08/23 [History Confirmed 12/08/23] ergocalciferol (vitamin D2) 50,000 unit tablet 50,000 unit PO DAILY 12/08/23 [History Confirmed 12/08/23] fluoxetine 40 mg capsule 40 mg PO DAILY 12/08/23 [History Confirmed 12/08/23] guaifenesin 100 mg/5 mL oral liquid (Marybeth-Tussin) 100 mg PO Q4H PRN Cough 12/08/23 [History Confirmed 12/08/23] ketoconazole 2 % topical cream 1 applic topical DAILY 12/08/23 [History Confirmed 12/08/23] loperamide 2 mg capsule (Anti-Diarrheal (loperamide)) 2 mg PO DAILY PRN Diarrhea 12/08/23 [History Confirmed 12/08/23] mecobalamin (vitamin B12) 500 mcg chewable tablet 500 mcg PO DAILY 12/08/23 [History Confirmed 12/08/23] meloxicam 7.5 mg tablet 7.5 mg PO DAILY 12/08/23 [History Confirmed 12/08/23] risperidone 0.5 mg tablet 0.5 mg PO BID 12/08/23 [History Confirmed 12/08/23] Active Medications Acetaminophen (Acetaminophen 325 Mg Tablet) 650 mg PO Q6H PRN PRN Reason: Pain Bisacodyl (Bisacodyl 10 Mg Suppository) 10 mg RECTAL DAILY PRN PRN Reason: Constipation Enoxaparin Sodium (Enoxaparin 40 Mg/0.4 Ml Syringe) 40 mg SUB-Q DAILY [facility] Fluoxetine HCl (Fluoxetine Hcl 20 Mg Capsule) 40 mg PO DAILY [facility] Dopamine HCl/Dextrose (Dopamine 400 Mg/D5w 250 Ml) 400 mg in 250 mls @ 19.238 mls/hr IV CONT .Q13H [facility] Last Infusion: 12/08/23 12:00 Dose: 5 mcg/kg/min, 19.24 mls/hr Lactated Ringer's (Lr - Lactated Ringers Iv) 1,000 mls @ 100 mls/hr IV CONT .Q10H [facility] Stop: 12/08/23 20:19 Last Admin: 12/08/23 10:37 Dose: 100 mls/hr Lamotrigine (Lamotrigine 50 Mg Tablet) 150 mg PO HS [facility] Levothyroxine Sodium (Levothyroxine Sodium 25 Mcg Tablet) 25 mcg PO DAILY@0630 [facility] Miconazole Nitrate (Miconazole Nitrate 2% Cream 30 Gm Tube) 1 applic TOPICAL DAILY [facility] Last Admin: 12/08/23 10:37 Dose: 1 applic Pantoprazole Sodium (Pantoprazole 40 Mg Tablet) 40 mg PO QAM [facility] Risperidone (Risperidone 0.5 Mg Tablet) 0.5 mg PO BID [facility] Simvastatin (Simvastatin 20 Mg Tablet) 40 mg PO HS [facility] Transfer Discharge Sum: Hosp Hospital Course Hospital course: This is a 68-year-old female who presents from the half-way with an episode of passing out and also noted to have convulsing and tensing her muscles during that episode. Upon arrival to the ED patient was noted to be bradycardic with rate of 35. Blood pressure stable. EKG showed complete heart block. Laboratory evaluation revealed normal cbc unremarkable came panel lipase 124. Magnesium normal. Troponin negative Patient admitted to the ICU for further treatment. Cardiology consulted. Plan for transfer for pacemaker placement. transfer arrangements were made to go to [facility] in [place] In the interim on dopamine drip. Not on AV joanna bipin at home. Hypertension Hyperlipidemia Hypothyroidism on levothyroxine Bipolar disorder on risperidone fluoxetine and lithium Seizure disorder on lamotrigine DVT prophylaxis Lovenox Code status full code Time Spent with Patient Time attestation: Total time spent providing and/or coordinating transfer services: 35 minutes Exam Narrative: GENERAL: Well-appearing, well-nourished, and in no acute distress. HEAD: Normocephalic, atraumatic. EYES: PERRLA and EOMI. ENT: Nares clear, no rhinorrhea or epistaxis. Mucous membranes moist. NECK: Supple. CHEST: Clear to auscultation. No respiratory distress. HEART: bradycardic, No murmur heard. Normal peripheral pulses. ABDOMEN: Soft, nontender, nondistended, normal active bowel sounds. EXTREMITIES: Normal range of motion. No edema. SKIN: Warm, dry, no rash. NEURO: No focal deficits. Alert and oriented x3. PSYCH: Normal mood and affect. DS: Data Data Completed and Pending Labs on day of discharge: Labs from last 24 hours 12/08/23 12/08/23 12/08/23 12:22 11:05 09:14 WBC RBC Hgb Hct MCV MCH MCHC RDW Plt Count MPV Immature Gran % (Auto) Neut % (Auto) Lymph % (Auto) [place] % (Auto) Eos % (Auto) Baso % (Auto) Lymph # (Auto) [place] # (Auto) Eos # (Auto) Baso # (Auto) Abs Immat Gran (auto) Absolute Neuts (auto) Absolute Nucleated RBC Nucleated RBC % PT INR APTT Sodium Potassium Chloride Carbon Dioxide Anion Gap BUN Creatinine Estim Creat Clear Calc Estimated GFR Glucose Calcium Magnesium Total Bilirubin AST ALT Alkaline Phosphatase Troponin I 0.048 H* D 0.025 D Total Protein Albumin Lipase TSH (Reflex) Free T4 Total T3 Nasal MRSA (PCR) Detected A* [place] 0.7 12/08/23 06:26 WBC 8.6 RBC 4.13 L Hgb 12.4 Hct 39.6 MCV 95.9 MCH 30.0 MCHC 31.3 L RDW 13.2 Plt Count 202 MPV 10.4 Immature Gran % (Auto) 0.2 Neut % (Auto) 75.3 H Lymph % (Auto) 15.0 L [place] % (Auto) 5.6 Eos % (Auto) 3.4 Baso % (Auto) 0.5 Lymph # (Auto) 1.29 [place] # (Auto) 0.5 Eos # (Auto) 0.3 Baso # (Auto) 0.0 Abs Immat Gran (auto) 0.02 Absolute Neuts (auto) 6.5 Absolute Nucleated RBC 0.000 Nucleated RBC % 0.0 PT 14.4 INR 1.1 APTT 23.6 Sodium 140 Potassium 4.6 Chloride 108 H Carbon Dioxide 23 Anion Gap 9 BUN 24 H D Creatinine 0.60 L Estim Creat Clear Calc Not Reportable Estimated GFR > 60 Glucose 130 H Calcium 9.1 Magnesium 2.1 Total Bilirubin 0.4 AST 21 ALT 12 Alkaline Phosphatase 107 Troponin I < 0.012 Total Protein 7.0 Albumin 3.7 Lipase 124 TSH (Reflex) 6.190 H Free T4 1.08 Total T3 Pending Nasal MRSA (PCR) [place] [facility] Radiologist's impression: ITS Impressions Chest X-Ray 12/08/23 08:05 IMPRESSION: 1. Mild opacities in the left lower lung zone which could represent atelectasis, asymmetric mild pulmonary edema or pneumonia. 2. Cardiomegaly with enlargement of the central pulmonary arteries consistent with pulmonary arterial hypertension.
[2023-12-08 15:40] LABS: Total Triiodothyronine (T3) 1.38 NG/ML (0.97-1.69)
== END 2023-12-08 14:45 | disposition short-term general hospital (02) | DRG 310 ==
LOC: ANHED 07:04 → ANHICU 12-11 11:51
PROVIDERS: Internal Medicine; Admitting Provider Internal Medicine; Emergency Provider Emergency Medicine; PCP Family Medicine; Visit Provider Internal Medicine
DX: I44.2 Atrioventricular block, complete (principal); R00.1 Bradycardia, unspecified; R55 Syncope and collapse; G40.909 Epilepsy, unspecified, not intractable, without status epilepticus; E03.9 Hypothyroidism, unspecified; I10 Essential (primary) hypertension; F31.9 Bipolar disorder, unspecified; E78.5 Hyperlipidemia, unspecified; F20.9 Schizophrenia, unspecified; M19.90 Unspecified osteoarthritis, unspecified site; K21.9 Gastro-esophageal reflux disease without esophagitis; D64.9 Anemia, unspecified; Z96.652 Presence of left artificial knee joint; Z86.73 Personal history of transient ischemic attack (TIA), and cerebral infarction without residual deficits
CPT/HCPCS: 36415; 71045; 80053; 80178; 83690; 83735; 84439; 84443; 84480; 84484; 85025; 85610; 85730; 87641; 93005; 96361; 96365; 96375; 99285; A9270; C8929; G0378; J0461; J1265; J7030; J7120; Q9957

== ENCOUNTER 2024-09-01 23:00 | Inpatient (IN) | payer MEDICARE, MEDICAID, SELFPAY ==
--- NOTE | ~2024-09-01 | XR_ITS ---
XR chest 1V portable 09/02/2024 01:17 Indication: Cough Procedure: AP portable chest Comparison: Comparison to multiple prior studies sequentially, with oldest reviewed study dated 05/05. Findings: Heart size upper normal. Pacemaker leads in expected position. No focal air space disease, pulmonary edema, pleural effusion or suspected pneumothorax. Impression: 1: No acute cardiopulmonary disease. Reviewed, dictated and finalized at location B. Impression: 1: No acute cardiopulmonary disease.
--- NOTE | ~2024-09-01 | XR_ITS ---
[id number] 09/04/2024 14:48 Indication: Right knee pain Procedure: 2 views right knee Comparison: No prior studies for comparison. Findings: There is moderate tricompartmental compartmental osteoarthritis. Osteopenia. No acute fract ure or traumatic malalignment. No significant joint effusion. No foreign bodies. Impression: 1: Moderate osteoarthritis of the right knee. Reviewed, dictated and finalized at location B. Impression: 1: Moderate osteoarthritis of the right knee.
[2024-09-01 23:07] VITALS: BP 100/55; PULSE 82; RESP 19; TEMP 37.9; O2SAT 96
[2024-09-01 23:15] VITALS: PULSE 83
--- NOTE | 2024-09-01 23:15 | ECG_ITS ---
Test Date: 2024-09-01 23:55:59 Measurements Intervals [place] Rate: 76 P: 55 MO: 232 QRS: -48 QRSD: 185 T: 110 QT: 450 QTc: 508 Interpretive Statements SINUS RHYTHM WITH FIRST DEGREE AV BLOCK LEFT BUNDLE BRANCH BLOCK Electronically Signed On 09-02-2024 17:18:48 CDT by Vito Fernando D.O
--- OUTSIDE RECORDS SUMMARY | 2024-09-01 23:43 | XMS_ITS | Referral Summary ---
Author Organization [facility] Address [address] [place] [address] Care Team Providers Care Material Flow Engineer Name Role Phone No, Physician Primary Care Provider [phone] Haseeb Brumfield MD Unavailable [phone] Anibal Simon MD Unavailable [phone] Encounters Date Type Department Care Team Description 07/11/2024 Orders Only [facility] Orthopaedic Surgery [address] [place] [address] Office [facility] [address] [place] [phone] Crow Bean MD 06/16/2024 Telephone [facility] Orthopaedic Surgery [address] [place] [address] Office [facility] [address] [place] [phone] Crow Bean MD from Last 3 Months Allergies Active Allergy Reactions Criticality Noted Date Comments Meperidine Rash Medium 12/08/2023 Meperidine Nausea only,Vomiting,Hives,Rash Medium Reaction: Nausea, Vomiting, , Reaction: Hives, , Penicillins Hives,Rash Medium Reaction: Hives, , Penicillins Rash Medium 12/08/2023 Preservative Hives,Nausea only,Vomiting Medium 05/17/2021 Reaction: Nausea, Vomiting, Reaction: Hives, Medications FLUoxetine (PROzac) 20 mg capsule Take 20 mg by mouth daily Active lamoTRIgine (LaMICtal) 150 mg tablet Take 150 mg by mouth nightly 10/22/19 21 Active ergocalciferol (VITAMIN D) 50,000 unit capsule Take 1 capsule by mouth once a week Q sunday Active levothyroxine (SYNTHROID) 25 mcg tablet Take 25 mcg by mouth angiographer before breakfast Active meloxicam (MOBIC) 15 mg tablet Take 15 mg by mouth daily Active simvastatin (ZOCOR) 40 mg tablet Take 40 mg by mouth nightly Active nystatin powder Apply 1 application topically 4 (four) times a day Under breasts And abdominal fold for excoriation Active famotidine (PEPCID) 20 mg tablet Take 1 tablet (20 mg total) by mouth daily 30 tablet 11 04/06/19 22 Active cyclobenzaprine (FLEXERIL) 5 mg tablet Take 1 tablet (5 mg total) by mouth 3 (three) times a day as needed for muscle spasms 30 tablet 04/04/19 22 Active lithium 150 mg capsuleIndications :Mixed Bipolar I Disorder Take 150 mg by mouth 2 (two) times a day with meals Active HYDROcodone-acetam inophen (NORCO) 5-325 mg per tabletIndications: Pain Take 2 tablets by mouth every 4 (four) hours as needed for pain for up to 10 doses 20 tablet 05/28/[address] (PROTONIX) 40 mg EC tablet 06/08/19 22 Active lisinopriL (PRINIVIL,ZESTRIL) 40 mg tablet 07/10/19 22 Active levothyroxine (SYNTHROID) 25 mcg tablet Take 1 tablet (25 mcg total) by mouth angiographer before breakfast 25 mcg PO Daily Active lisinopriL (PRINIVIL,ZESTRIL) 40 mg tablet Take 1 tablet (40 mg total) by mouth daily 40 mg PO Daily Active lamoTRIgine (LaMICtal) 150 mg tablet Take 1 tablet (150 mg total) by mouth daily 150 mg PO Nightly Active simvastatin (ZOCOR) 40 mg tablet Take 1 tablet (40 mg total) by mouth nightly 40 mg PO Nightly Active ferrous sulfate (Iron, ferrous sulfate,) 325 mg (65 mg of elemental iron) tabletIndications: Iron Deficiency Anemia Take 1 tablet (325 mg total) by mouth 2 (two) times a day 325 mg PO BID Active pantoprazole DR (PROTONIX) 40 mg EC tablet Take 1 tablet (40 mg total) by mouth daily 40 mg PO QAM Active acetaminophen (TYLENOL) 325 mg tablet Take 2 tablets (650 mg total) by mouth every 6 (six) hours as needed for pain 650 mg PO Q6H PRN Pain Active bisacodyL (DULCOLAX) 10 mg suppositoryIndicat ions:constipation Insert 1 suppository (10 mg total) into the rectum daily 10 mg Daily PRN constipation Active magnesium citrate solution Take 300 mL by mouth once 300 mL PO Daily PRN constipation Active ondansetron ODT (ZOFRAN-ODT) 4 mg disintegrating tablet Take 1 tablet (4 mg total) by mouth as needed for nausea or vomiting 4 mg PO Q6H PRN Nausea Active ascorbic acid, vitamin C, (VITAMIN C) 500 mg CR tablet Take 1 tablet (500 mg total) by mouth daily 500 mg PO Daily Active ergocalciferol (VITAMIN D) 50,000 unit capsule Take 1 capsule (50,000 Units total) by mouth daily 50,000 units PO Daily Active FLUoxetine (PROzac) 40 mg capsule Take 1 capsule (40 mg total) by mouth daily 40 mg PO Daily Active guaiFENesin (ROBITUSSIN) syrup 100 mg/5 mL Take 5 mL (100 mg total) by mouth 6 (six) times a day 100 mg PO Q4H PRN cough Active ketoconazole (NIZORAL) 2 % cream Apply 1 Application topically daily 1 application topical daily Active mecobalamin, vitamin B12, 500 mcg tablet,chewable Take 500 mcg by mouth daily 500 mcg PO Daily Active meloxicam (MOBIC) 7.5 mg tablet Take 1 tablet (7.5 mg total) by mouth daily 7.5 mg PO Daily Active traMADoL (ULTRAM) 50 mg tablet Take 1 tablet (50 mg total) by mouth every 8 (eight) hours as needed for pain 12/11/19 24 Active docusate sodium (COLACE) 100 mg capsuleIndications :constipation Take 1 capsule (100 mg total) by mouth every 12 (twelve) hours as needed for constipation 12/11/19 24 Active risperiDONE (RisperDAL) 0.5 mg tablet Take 1 tablet (0.5 mg total) by mouth 2 (two) times a day 0.5 mg PO BID AT BREAKFAST AND AT BEDTIME 12/11/19 24 Active lithium 150 mg capsule Take 1 capsule (150 mg total) by mouth every morning 150 mg PO Daily 12/11/19 24 Active lithium 300 mg tablet/capsule Take 1 tablet/capsule (300 mg total) by mouth nightly 300 mg PO Daily 12/11/19 24 Active Active Problems Problem Noted Date Diagnosed Date Bradycardia 12/10/2023 Syncope, unspecified syncope type 12/08/2023 Closed fracture of neck of femur 05/25/2021 Osteoarthritis 05/25/2021 Primary localized osteoarthritis of pelvic regio n and thigh 05/25/2021 Bipolar disorder 05/16/2021 Assessment & Plan (05/19/2021 2:57 PM CDT): No evidence of active major mood episode at this time - Serum Li level appropriate 0.6 on admission - Continue lithium 150 mg BID - Continue Lamictal 150 mg qHS - Continue fluoxetine 20 mg daily Assessment & Plan (05/19/2021 5:22 AM CDT): Continue home lithium Assessment & Plan (05/18/2021 2:21 PM CDT): Patient has rapid speech pattern is difficult to understand. Is pleasant and does not appear to be in any distress. Does not report overwhelming pain in says it is tolerable. Able to understand 40% of what patient says. A&O x2 (self and location, not able to recall the date) Continuing home medications - fluoxetine 20 mg q.day - Lamotrigine 150 mg Q nightly - [place] 150 mg b.i.d. - [place] levels 0.5.Therapeutic range (0.6-0.8) Assessment & Plan (05/16/2021 2:06 AM CDT): Continue home medications Hypothyroid 05/16/2021 Assessment & Plan (05/19/2021 2:54 PM CDT): Continue home synthroid Assessment & Plan (05/19/2021 5:22 AM CDT): Continue home synthroid Assessment & Plan (05/16/2021 5:51 PM CDT): Continue levothyroxine Assessment & Plan (05/16/2021 2:04 AM CDT): Continue levothyroxine HLD (hyperlipidemia) 05/16/2021 Assessment & Plan (05/16/2021 5:51 PM CDT): Continue statin Assessment & Plan (05/16/2021 2:06 AM CDT): Continue statin Normocytic anemia 05/16/2021 Assessment & Plan (05/16/2021 5:50 PM CDT): Hemoglobin at baseline. Will monitor. Assessment & Plan (05/16/2021 2:06 AM CDT): Hemoglobin at baseline. Will monitor. Hyperkalemia 05/16/2021 Assessment & Plan (05/16/2021 5:58 PM CDT): K 2.9 today. Replaced and will continue to follow. - BMP daily Wound dehiscence 05/15/2021 Assessment & Plan (05/23/2021 2:02 PM CDT): 65 y.o. female w/PMH of HTN, schizophrenia, bipolar disorder, anxiety/depression, and severe osteoarthritis s/p L-TKA in November 2020 c/b MRSA PJI s/p I&D + explant + spacer placement (03/25/21) f/b 6-weeks of IV datptomycin; now admitted with wound dehiscence and destructive changes in her L-knee joint. - CrCl 96 ml/min, CRP 90.8 --> 37.3, CK 12. Lactate 0.9. - L-knee wound cx (05/16) grew MRSA (S-dapto, ceftaroline, vanco, line, doxy, clinda) - BCX (05/15) S.epidermidis -two strains, and S.mitis x1 in 1/2 bottles. - BCx (05/17 & ) NG. - L-knee CT (05/17) showed fluid surrounding the knee joint, with associated air bubbles as described, c/f septic arthritis with cement spacer protruding through the skin + distal femur findings c/f osteomyelitis. -OR (05/21): pacer removed, I&D of the knee, placement of L knee static spacer with ex fix and abx cement ; spacer dislocated and protruding out of skin; patella fragmented and fx in multiple parts, removed; soft bone in tibia and femur c/f OM Cx: MRSA Recommendations: - Continue vancomycin 1.25g IV q12h, duration at least 6 weeks from OR 05/21- 07/01. Possible plan for reimplantation with knee fusion pending clinical course. - CBC with diff weekly, CMP and vanc troughs twice weekly. Goal trough 15-20. - ID will sign off. Will schedule pt in clinic in 2-3 weeks. Assessment & Plan (05/27/2021 11:24 AM CDT): History of left TKA in 11/2020 with subsequent wound infection s/p explant and I&D in 03/2021. Cx with MRSA. Completed 6 weeks IV dapto on 05/05/21. Pt denies ever having significant improvement. Now p/t OSH with increased knee pain and drainage on 05/15. Wound cx on 05/16 with MRSA. Started on dapto/CTX at OSH on 05/15. - s/p cefepime, ID on board, vanc 05/19- plan to continue for at least 6 weeks based on ID recs. - removal of knee prosthesis 05/21/21, ortho consulted, removed drain on 05/25. Exchanged wound vac on 05/25, recommend leaving in place until 06/01. - Hydrocodone-APAP q4 PRN - ID consulted, appreciate recs, planning for at least 6 weeks of vanc bid. - Vanc level 20.7 today. Given it is borderline elevated and patient had low level on reduced dose previously, will continue 1250 bid for now. Assessment & Plan (05/19/2021 5:22 AM CDT): History of left TKA in 11/2020 with subsequent wound infection s/p explant and I&D in 03/2021. Cx with MRSA. Completed 6 weeks IV dapto on 05/05/21. Pt denies ever having significant improvement. Now p/t OSH with increased knee pain and drainage on 05/15. Wound cx on 05/16 with MRSA. Started on dapto/CTX at OSH on 05/15 Will transition to vanc/cefepime given seemingly persistent wound infection Hydrocodone-APAP q4 PRN Follow up OSH susceptibilities Will consult ID here for assistance Ortho consult pending Assessment & Plan (05/18/2021 2:23 PM CDT): Pt has been accepted by Dr. Ellie Mackenzie at [facility]. Will transfer when bed is available 1-3 days. 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 ESR at the end of the therapy was 23 and she was doing relatively well. Patient did follow-up with orthopedics Dr. Astudillo, 4 days ago and second-stage knee reimplantation was considered. She continued to have increased drainage, swelling and necrotic tissue. Pt has no leukocytosis and has remained afebrile, following blood and wound cultures. - CT L knee w: fluid surrounding joint, bubbles, septic arthritis with demineralization distal femur and prox tibia, possible osteomyelitis. Soft tissue gas anterosuperior, lateral margin of prox leg. - XR Knee: Soft tissue swelling throughout the knee with a tiny bubble of gas in the suprapatellar area. - Blood cultures: Gram-positive cocci in chains and pairs - Wound cultures: Abundant PML Staph aureus sensitivities pending - IV Ceftriaxone DC per ID - IV Daptomycin with dose change per abx stewardship - Following inflammatory markers: ESR 78 CRP 48 - Krebs 10-325 Q 4 1st line, morphine IV 4 mg 2nd line - Nutritional supplements BID - ID on consult appreciate recs - Orthopedic surgery following Assessment & Plan (05/16/2021 2:04 AM CDT): With suspected infection of the left lower extremity. Continue daptomycin. Ortho was consulted. Will also consult Infectious Disease. P.r.n. 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 Overview (05/12/2021): Added automatically from request for surgery [id number] Assessment & Plan (05/18/2021 2:24 PM CDT): See note for wound dehiscence Schizophrenia, unspecified 05/05/2021 Infection and inflammatory r eaction due to internal left knee prosthesis, subsequent encounter 04/11/2021 Other streptococcal arthritis, left knee 022 Toxic metabolic encephalopathy 03/22/2021 [place] toxicity 03/22/2021 Pyogenic arthritis of left knee joint 03/22/2021 Assessment & Plan (07/12/2021 2:33 PM CDT): Summary: L knee wound infection with OM of tibia/femur - s/p vancomycin from 05/21 (7-day gap, restarted 06/07) to 07/04/21 - on Doxycycline 100 mg PO q12h since 07/05/21 - Adverse effects from antibiotics: none Pt is doing well. Will complete 6 weeks of therapy for limb-salvage; 2-stage procedure. PLAN - will check CRP, CBC, and CMP today - complete therapy with Doxycycline 100 mg PO q12h on 07/19/21 - follow up with Dr. Bean on 08/12/21 for repeat knee aspiration 3 weeks after completion of antimicrobial therapy RTC PRN Assessment & Plan (06/14/2021 3:55 PM CDT): Summary: L knee wound infection with OM of tibia/femur Current antibiotic regimen is: vancomycin 1250 mg Iv q12h Start date: 05/21/21 (06/07/21) Due date: 07/04/21 Adverse effects from antibiotics: none Despite the lack of abx during the admission to [facility], pt is doing well. We'll aim to give at least 6 weeks of therapy from when vancomycin was restarted, given that this is limb-salvage therapy PLAN - given the inconsistent administration of IV vancomycin during her admission at [facility], we'll extend her IV antimicrobial course until 07/04, followed by 2 weeks of PO doxycycline (reset the 6w course from 06/07/21) - will check CRP at the next blood draw - increase vancomycin dose to 1,500 mg I v q12h based on last through: --> recheck level prior to the 4th dose after this last adjustment --> Continue IV vancoomycregimen until 07/04/21 -- firm stop--> afterwards, we'll switch to Doxycycline 100 mg PO q12h for two more weeks --firm stop on 07/19/21 - While on IV antimicrobials we'll continue to monitor CBC, CMP and vancomycin through's x2/week - will fax my note to her [facility] ([facility]) RTC in 4 weeks Presence of left artificial knee joint Dissociative identity disorder 11/10/2020 Primary osteoarthritis of left knee 10/18/2020 Overview (10/18/2020): Added automatically from request for surgery [id number] Difficulty in walking, not elsewhere classified 08/21/2020 Muscle weakness (generalized) 08/21/2020 Essential (primary) hypertension 08/18/2020 Fall on same level, unspecified, subsequent enco unter 08/18/2020 Major depressive disorder, single episode, unspe cified 08/18/2020 Other seizures 08/18/2020 Pain in left knee 08/18/2020 Vitamin D deficiency, unspecified 08/18/2020 Obesity with body mass index 30 or greater 12/02 Hernia, incisional 08/06/2015 Resolved Problems Problem Noted Date Diagnosed Date Resolved Date Anxiety and depression 05/19/202105/19 Assessment & Plan (05/19/2021 3:05 PM CDT): Continue home prozac Assessment & Plan (05/19/2021 5:22 AM CDT): Continue home prozac Malnutrition 03/29/2021 05/17/2021 Assessment & Plan (05/17/2021 1:52 PM CDT): Pt has decreased PO intake. Immunizations Immunization Administration Dates Next Due Influenza, Quadrivalent, Spl it, Intramuscular 02/10/2015 Influenza, Trivalent, IM (MDV) 11/17/2013 Moderna SARS-CoV-2 Monovalen t Vaccination (12+ YRS) 01/06/2021,05/27/2020,05/05/2020 Social History Tobacco Use Types Packs/Day Years Used Date Smoking Tobacco: Never Smokeless Tobacco: Never Tobacco Cessation:Counseling Given: No Alcohol Use Standard Drinks/Week Comments No 0 (1 standard drink = 0.6 oz pur e alcohol) [facility] Utilities Answer Date Recorded In the past 12 months has th e electric, gas, oil, or water company threatened to shut off services in your home? No 12/11/2023 Social Connection and Isolation Panel [NHANES] A nswer Date Recorded In a typical week, how many times do you talk on the phone with family, friends, or neighbors? Three times a week 12/11/2023 How often do you get togethe r with friends or relatives? Three times a week 12/11/2023 How often do you attend chur ch or rastafari services? Never 12/11/2023 Do you belong to any clubs o r organizations such as yarsanism groups, unions, fraternal or athletic groups, or school groups? No 12/11/2023 How often do you attend meet ings of the clubs or organizations you belong to? Never 12/11/2023 Are you , , di vorced, , never , or living with a partner? Never 12/11/2023 AUDIT-C Answer Date Recorded Q1: How often do you have a drink containing alcohol? Never 12/10/2023 Q2: How many drinks containi ng alcohol do you have on a typical day when you are drinking? Patient does not drink Q3: How often do you have si x or more drinks on one occasion? Never 12/10/2023 Overall Financial Resource Strain (CARDIA) Answe r Date Recorded How hard is it for you to pa y for the very basics like food, housing, medical care, and heating? Not hard at all 12/11/2023 PHQ-2 Answer Date Recorded PHQ-2 Total Score (If total score is 3 or more points, staff should administer the PHQ-9) 0 03/26/2021 Hunger Vital Sign Answer Date Recorded Within the past 12 months, y ou worried that your food would run out before you got the money to buy more. Never true 12/11/19 24 Within the past 12 months, t he food you bought just didn't last and you didn't have money to get more. Never true 12/11/2023 PRAPARE - Transportation Answer Date Re corded In the past 12 months, has l ack of transportation kept you from medical appointments or from getting medications? No 06/2023 In the past 12 months, has l ack of transportation kept you from meetings, work, or from getting things needed for daily living? No 12/11/2023 Housing Stability Vital Sign Answer Vitaliy e Recorded In the last 12 months, was t here a time when you were not able to pay the mortgage or rent on time? No 12/11/2023 In the past 12 months, how m any times have you moved where you were living? 0 12/11/2023 At any time in the past 12 m [facility], were you homeless or living in a intermediate (including now)? No 12/11/2023 Personal Safety Answer Date Recorded Have you ever been in or are you currently in a harmful physical or emotional relationship or is someone making you feel afraid or unsafe? Denies 12/08/2023 Comments No Sex and Gender Information Value Date Recorded Sex Assigned at Not on file Legal Sex Female 12:48 AM CORPORATE DEVELOPMENT OFFICER Gender Identity Not on file Sexual Orientation Not on file Last Filed Vital Signs Vital Sign Reading Time Taken Comments Blood Pressure 150/82 12/11/2023 1:00 PM CORPORATE DEVELOPMENT OFFICER Pulse 65 12/11/2023 1:00 PM CORPORATE DEVELOPMENT OFFICER Temperature 37.3 C (99.2 F) 12/11/2023 3:56 PM CORPORATE DEVELOPMENT OFFICER Respiratory Rate 16 12/11/2023 1:00 PM CORPORATE DEVELOPMENT OFFICER Oxygen Saturation 95% 12/11/2023 1:00 PM CORPORATE DEVELOPMENT OFFICER Inhaled Oxygen Concentration - - Weight 107.1 kg (236 lb 1.8 oz) 12/08/2023 3:25 PM CDT Height 167.6 cm (5' 6) 12/08/2023 3:25 PM CDT Body Mass Index 38.11 12/08/2023 3:25 PM CDT Plan of Treatment Not on file Medical Devices Implanted Type Area Jet Wiper Device Identifier Shelf Expiration Date Model / Serial / Lot [employer] Simplex P Radiopaque Full Dose Cement Bone Sterile 6191-1-010 - [id number] Implanted:Qty: 3 on 05/21/2021 by Boni Herrera MD at [facility] Bone Cement Left: Knee [employer] 07/06/2023 6191-1-01 0 / / [id number] [employer] 5517-F-401 Triathlon Cruciate Retain Bead Knee Left 4 Component Femoral Pa - [id number] Implanted:Qty: 1 on 11/09/2020 by Frederick Astudillo MD at [facility] Left: Knee [employer] 08/17/2025 5517-F-40 1 / / [id number] [employer] 9099-O-181-E Insert Tibial Triathlon 4 H9mm Knee Bearing Condylar Stabilize Sterile - [id number] Implanted:Qty: 1 on 11/09/2020 by Frederick Astudillo MD at [facility] Left: Knee [employer] 06/15/2025 5531-G-40 9-E / / [id number] [employer] 5536-B-400 Triathlon Coated Knee 4 Baseplate Tibial Tritanium Sterile - [id number] Implanted:Qty: 1 on 11/09/2020 by Frederick Astudillo MD at [facility] Left: Knee [employer] 03/22/2025 5536-B-40 0 / / [id number] [employer] 5552-L-381 Tritanium 38mm 11mm Asymmetric Knee Component Patellar Metal - [id number] Implanted:Qty: 1 on 11/09/2020 by Frederick Astudillo MD at [facility] Left: Knee [employer] 07/07/2025 5552-L-38 1 / / [id number] [employer] 6195-1-001 Cement Bone Simplex Gentamicin High Viscosity 40gm - [id number] Implanted:Qty: 1 on 11/09/2020 by Frederick Astudillo MD at [facility] Left: Knee [employer] 02/04/2022 6195-1-00 1 / / [id number] B [employer] 6195-1-001 Cement Bone Simplex Gentamicin High Viscosity 40gm - [id number] Implanted:Qty: 1 on 03/25/2021 by Frederick Astudillo MD at [facility] Left: Knee [employer] 07/05/2022 6195-1-00 [id number] [employer] Active Fixation Steroid Eluting Is 1 Connector Latex Free Sterile Atrial Ventricular Atrial Ventricular Solia 60cm [id number] - [id number] - [id number] Implanted:Qty: 1 on 12/10/2023 by Dago Cortes Jr., MD at [facility] [employer] 10/05/2025 [id number] / [id number] / [employer] Solia S 53cm Steroid Elute Bipolar Active Fixation Endocardial 386804 - [id number] - [id number] Implanted:Qty: 1 on 12/10/2023 by Dago Cortes Jr., MD at [facility] [employer] 11/04/2025 530602 / [id number] / [employer] Pacemaker Implantable Amvia Edge Dual Chamb Rate-Responsive 089194 - [id number] - [id number] Implanted:Qty: 1 on 12/10/2023 by Dago Cortes Jr., MD at [facility] [employer] 04/04/2025 [id number] / [id number] / Procedures Procedure Name Priority Date/Time Associated Diagnosis Comments HEPATITIS PANEL, ACUTE Routine 03/22/2021 5:27 PM CORPORATE DEVELOPMENT OFFICER from Last 3 Months or Most Recently Relevant to Health Maintenance Results * Hepatitis panel, acute (03/22/2021 5:27 PM CORPORATE DEVELOPMENT OFFICER) Hep A IgM Nonreactive Nonreactive RAKAN ROBLES (JOSE) Comment: Interpretive Data: If Hep A IgM Ab is reported as Equivocal, a new sample should be drawn in two weeks for testing. Current interpretive data was last revised on 19. Testing performed by: [facility], [address] [place] [address], [place]., [id number] Hep B core IgM Nonreactive Nonreactive Karlie ROBLES (JOSE) Comment: Interpretive Data If HepB Core IgM Ab is reported as Equivocal, a new sample should be drawn in two weeks for testing. Current interpretive data was last revised on 19. Testing performed by: [facility], [address] [place] [address], [place]., [id number] Hep C Ab Nonreactive Nonreactive RAKAN ROBLES (JOSE) Comment: Interpretive Data Nonreactive: Antibodies to HCV not detected. Does NOT exclude the possibility of recent exposure to HCV. Equivocal: Equivocal for HCV antibodies. Supplemental molecular testing will be automatically performed to determine infection status in accordance with current CDC screening recommendations. Reactive: Positive for HCV antibodies. This may represent current or past HCV infection. Supplemental molecular testing will be automatically performed to determine current infection status in accordance with current CDC screening recommendations. Interpretive data was last revised on 2019. Testing performed by: [facility], [address] [place] [address]., [id number] HepBsAg Nonreactive Nonreactive BRUCEPO MARGARET (JOSE) Comment:Testing performed by : [facility], [address] [place] [address]., [id number] Blood 03/22/2021 5:27 PM CORPORATE DEVELOPMENT OFFICER 03/23/2021 10:31 AM CORPORATE DEVELOPMENT OFFICER Brian Obrien MD LAB MICROBIOLOGY - GENERAL OR DERABLES Final Result RAKAN MARGARET (JOSE) 1 [facility] Department [place] [address] from Last 3 Months or Most Recently Relevant to Health Maintenance Insurance MEDICARE MEDICARE ON LICENSE OF [facility] [employer]TER [facility] [facility] MEDIC[facility] Advance Directives For more information, please contact: [phone] Documents on File Type Date Recorded Patient Software Applications Developer Expl anation ADVANCE DIRECTIVE 05/31/2021 5:59 AM POWER OF METER SUPERVISOR-MEDICAL ADVANCE DIRECTIVE 05/19/2021 3:26 PM POA ADVANCE DIRECTIVE 04/12/2021 10:24 AM DNR * Full Code (Latest Code Status on File) Date Activated Date Inactivated Comments 12/10/2023 11:53 AM 12/11/2023 10:43 PM * Full Code Date Activated Date Inactivated Comments 12/08/2023 4:51 PM 12/10/2023 11:53 AM * Full Code Date Activated Date Inactivated Comments 05/21/2021 5:10 PM 05/27/2021 9:29 PM * Full Code Date Activated Date Inactivated Comments 05/16/2021 2:02 AM 05/18/2021 10:21 PM * Full Code Date Activated Date Inactivated Comments 03/23/2021 9:08 AM 04/11/2021 4:33 PM Care Teams Material Flow Engineer Relationship Specialty Start Date End Date No, Physician PCP - General 11/20/23 Haseeb Brumfield MD Family Medicine 11/20/23 Anibal Simon MD Consulting Physician Infectious Diseases 04/11/21
--- OUTSIDE RECORDS SUMMARY | 2024-09-01 23:43 | XMS_ITS | Encounter Summary ---
Author Organization [facility] Address [address] [place] [address] Phone Care Team Providers Care Vein Access Technician Name Role Phone Haseeb Brumfield MD Primary Care Provider [phone] No, Physician Primary Care Provider Haseeb Brumfield MD Unavailable [phone] Anibal Simon MD Unavailable [phone]- [phone] Encounter Details Date Type Department Care Team (Late st Contact Info) Description 08/25/2020 Orders Only [facility] [address] [place] [address] Scanning, Provider Social History Tobacco Use Types Packs/Day Years Used Date Smoking Tobacco: Never Alcohol Use Standard Drinks/Week Comments No 0 (1 standard drink = 0.6 oz pur e alcohol) Comments Unknown Sex and Gender Information Value Date Recorded Sex Assigned at Not on file Legal Sex Female 12:48 AM ER NURSE Gender Identity Not on file Sexual Orientation Not on file documented as of this encounter Plan of Treatment Not on file documented as of this encounter Procedures Procedure Name Priority Date/Time Associated Diagnosis Comments SCAN - RADIOLOGY/IMAGING 08/25/2020 documented in this encounter Results * SCAN - RADIOLOGY/IMAGING (08/25/2020) Anatomical Region Laterality Modality Other us Provider Scanning Final Result documented in this encounter Visit Diagnoses Not on filedocumented in this encounter Additional Health Concerns Infection Onset Date Last Indicated Resolved Time 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 Case recorded in the [place] National Electronic Disease Surveillance System. This new test is within the 90 days where retesting is not recommended and is felt to represent old disease per Tru Larsen RN. Armani Bassett, 04/07/2021 04/07/2021 04/07/2021 2:59 PM ER NURSE COVID: Recovered Comment:Added based on recent COVID infection. 04/07/2021 04/07/2021 2021 3:05 AM C DT documented as of this encounter Care Teams Vein Access Technician Relationship Specialty Start Date End Date Haseeb Brumfield MD PCP - General Family Medicine 05/23/18 11/19/23 No, Physician PCP - General 11/20/23 Haseeb Brumfield MD Family Medicine 11/20/23 Anibal Simon MD Consulting Physician Infectious Diseases 04/11/21 documented as of this encounter
--- OUTSIDE RECORDS SUMMARY | 2024-09-01 23:43 | XMS_ITS | Encounter Summary ---
Author Organization [facility] Address [address] [place] [address] Phone Care Team Providers Care Vascular Manager Name Role Phone Haseeb Brumfield MD Primary Care Provider [phone] No, Physician Primary Care Provider [phone] Haseeb Brumfield MD Unavailable [phone] Anibal Simon MD Unavailable [phone] Encounter Details Date Type Department Care Team (Late st Contact Info) Description 09/07/2020 Orders Only [facility] [address] [place] [address] Scanning, Provider Social History Tobacco Use Types Packs/Day Years Used Date Smoking Tobacco: Never Alcohol Use Standard Drinks/Week Comments No 0 (1 standard drink = 0.6 oz pur e alcohol) Comments Unknown Sex and Gender Information Value Date Recorded Sex Assigned at Not on file Legal Sex Female 12:48 AM CLAIMS SERVICE ADJUSTOR Gender Identity Not on file Sexual Orientation Not on file documented as of this encounter Plan of Treatment Not on file documented as of this encounter Procedures Procedure Name Priority Date/Time Associated Diagnosis Comments SCAN - RADIOLOGY/IMAGING 09/07/2020 documented in this encounter Results * SCAN - RADIOLOGY/IMAGING (09/07/2020) Anatomical Region Laterality Modality Other us Provider Scanning Final Result documented in this encounter Visit Diagnoses Not on filedocumented in this encounter Additional Health Concerns Infection Onset Date Last Indicated Resolved Time MRSA 03/23/2021 05/19/2021 11/15/2021 3:05 AM CDT COVID19 Comment:Patient previously tested positive at [facility] on 03/02/21 as stated by Tru Larsen RN at the [facility]. Case recorded in the [place] National Electronic Disease Surveillance System. This new test is within the 90 days where retesting is not recommended and is felt to represent old disease per Tru Larsen RN. Armani Bassett, 04/07/2021 04/07/2021 04/07/2021 2:59 PM CLAIMS SERVICE ADJUSTOR COVID: Recovered Comment:Added based on recent COVID infection. 04/07/2021 04/07/2021 2021 3:05 AM C DT documented as of this encounter Care Teams Vascular Manager Relationship Specialty Start Date End Date Haseeb Brumfield MD PCP - General Family Medicine 05/23/18 11/19/23 No, Physician PCP - General 11/20/23 Haseeb Brumfield MD Family Medicine 11/20/23 Anibal Simon MD Consulting Physician Infectious Diseases 04/11/21 documented as of this encounter
--- OUTSIDE RECORDS SUMMARY | 2024-09-01 23:43 | XMS_ITS | Data Portability ---
Author Organization [facility] [employer], Main Office Address [address] [place] [address] Care Team Providers Care Lacing Presser Name Role Phone EL PAGE Primary Care Provider Assessment Encounter Date Assessment Date Assessment LastModified by Organization Details LastModified Time 04/18/2022 04/18/2022 D/w pt and her live in caregiver about her findings and further plan of care. Will refer pt to Ortho. Advised them to f/u with [place]'s PCP at [place] and ask them to take care of her further medical care. Since pt is living in [place], I will not be able to be her PCP. F/u with Ortho as directed. F/u with PCP at [place] as directed. [email or web address] Not available 04/18/2022 12:58:16 Plan of Treatment Reminders Order Date Submit Date Provider Last Modified By Organization Details Last Modified Time Details Appointments None recorded. Lab None recorded. Referral orthopedic surgeon referral - Please call pt to schedule appt. Thank you 2022 023 [email or web address] 7 [facility], [address], [place], [address], 3 15:30:25 Procedures None recorded. Surgeries None recorded. Imaging None recorded. Medication Orders None recorded. Patient TargetsNo targets recorded. Patient InstructionsNo instructions recorded. 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 Please call pt to schedule appt. Thank you Referring Physician: El Page, Family Medicine, Encounter Date: 04/18/2022 Results Created Date Observation Date Name Description Value Unit Range Abnormal Flag Note LastModifiedBy Organization Detail LastModifiedTime 08/25/19 21 08/17/2020 XR, ankle , 3 or more view No observ ation record ed. [id number] Not Available 04/05/2022 19:47:17 08/25/19 21 08/17/2020 XR, knee, 3 view No observ ation record ed. [id number] Not Available 04/05/2022 19:47:17 08/26/19 21 08/25/2020 CT, knee, w/o contr ast No observ ation record ed. [facility] [address], [place], [address], 04/18/2022 12:33:17 08/26/19 XR, knee No observ ation record ed. MIGRATION. [id number] [address], [place], [address], 04/05/2022 19:47:17 09/08/19 21 09/07/2020 CT, knee, w/o contr ast No observ ation record ed. [email or web address] [address], [place], [address], 04/18/2022 12:33:17 Result Notes None recorded. Problems Name Problem SNOMED Code Status Onset Date Resolution Date Notes Provider Name and Address Organization Details Recorded Time Localized, primary osteoarthr itis of the pelvic region and thigh 791841497 Active Not Available [facility] 19:46:26 Closed fracture of neck of femur 510693070 Active Not Available [facility] 19:46:26 Osteoarthr itis 266333681 Active Not Available [facility] 19:46:26 Fracture of neck of femur 0461969 Active Not Available [facility] 19:46:26 Pain of left knee joint 5386973978737 07 Active 2022 El Page MD [address] [place] [address], [place] [address], [place], [address] , [place] [facility] [place] [employer] 12:37:01 Hyperlipid emia 45829320 Active 2022 El Page MD [address], [place], [address] , [employer] 3 12:38:34 Hypertensi ve disorder 19292566 Active 2022 El Page MD [address], [place], [address] , [facility] 3 12:38:45 Obesity 467502330 Active 2022 El Page MD [address], [place], [address] , [employer] [facility] 12:39:04 Depressive disorder 32241506 Active 2022 El Page MD [address], [place], [address] , [employer] 3 12:40:49 Anxiety disorder 971825127 Active 2022 El Page MD [address], [place], [address] , [employer] 3 12:40:59 Bipolar disorder 56036775 Active 2022 El Page MD [address], [place], [address] , [facility] 3 12:41:05 Hypothyroi dism 17760799 Active 2022 El Page MD [address], [place], [address] , [employer] [facility] 3 12:41:13 Impaired mobility 76423273 Active 2022 El Page MD [address], [place], [address] , [employer] [facility] 3 12:58:31 History of left total knee replacemen t 3035116743221 105 Active 2022 El Page MD [address], [place], [address] , [facility] [employer] 3 12:58:58 Problem Notes None recorded. Procedures Surgical History Date Name Laterality Status Provider Name and Address Organization Details Recorded Time Knee Replacement completed Carmela Beaver RN [facility] [employer] 04/18/2022 12:28:26 Imaging Results None recorded. Procedure Notes None recorded. Medical Equipment None Reported. Allergies Allergen ID Allergen Name Allergen Category Reaction Reaction Severity Criticality Documentation Date Start Date Code Code System Note Provider Name and Address Organization Details Recorded Time 50773 Product containin g penicilli n (product) medicatio n Not available Not available Not available 04/05/2022 69175 8001 SNOMED Not Available formerly [facility] 3 19:47:15 26059 Demerol medicatio n Not available Not available Not available 04/05/2022 81130 1 RxNorm Not Available formerly [facility] 3 19:47:15 Medications Name Sig Start Date Stop Date Status Note LastModified by Organization Details LastModified Time celecoxib 200 mg capsule 08/25 completed Not Available Not Available Not Available lamotrigine 150 mg tablet TAKE 1 TABLET BY MOUTH ONCE DAILY active Not Available Not Available No t Available atorvastatin 20 mg tablet 08/25 completed Not Available Not Available Not Available cetirizine 10 mg tablet TK 1 T PO QD 08/25 completed Not Available Not Available Not Available meloxicam 15 mg tablet TAKE 1 TABLET BY MOUTH ONCE DAILY active Not Available Not Available No t Available tramadol 50 mg tablet TAKE 1 TABLET BY MOUTH EVERY 8 HOURS NEEDED FOR PAIN 08/25 completed Not Available Not Available Not Available lithium carbonate ER 450 mg tablet,exten ded release TAKE 1 TABLET BY MOUTH TWICE DAILY active Not Available Not Available No t Available simvastatin 40 mg tablet TAKE 1 TABLET BY MOUTH IN THE EVENING active Not Available Not Available No t Available Euthyrox 25 mcg tablet TAKE 1 TABLET BY MOUTH ONCE DAILY active Not Available Not Available No t Available ergocalcifer ol (vitamin D2) 1,250 mcg (50,000 unit) capsule TAKE 1 CAPSULE BY MOUTH ONCE A WEEK active Not Available Not Available No t Available lisinopril 40 mg tablet TAKE 1 TABLET BY MOUTH ONCE DAILY active Not Available Not Available No t Available fluoxetine 20 mg capsule TAKE 1 CAPSULE BY MOUTH ONCE DAILY active Not Available Not Available No t Available fluticasone propionate 50 mcg/actuatio n nasal spray,suspen lesley SHAKE LQ AND U 1 TO 2 SPRAYS IEN QD PRN 08/25 completed Not Available Not Available Not Available enoxaparin 30 mg/0.3 mL subcutaneous syringe 08/25 completed Not Available Not Available Not Available levothyroxin e 2020 active Not Available Not Available Not Avai lable Vitamin D 2020 active Not Available Not Available Not Avai lable Vitals Date Recorded Body height Heart rate Respiratory rate Oxygen saturation Oxygen saturation in Arterial blood by Pulse oximetry Systolic And Diastolic Provider Name and Address Organization Details Last Updated DateTime 177.8 cm 69 /min 16 /min 97 % 97 % 120/80 mm[Hg] Carmela Beaver RN [place] [employer] 12:21:17 Social History Question Answer Notes LastModified by Organizat ion Details LastModified Time Tobacco Smoking Status Never Smoker Not Available [facility] 04/05/2022 19:45:39 Do You Have An Advance Directive? Yes Information not available 04/18/2022 Are You Blind Or Do You Have Difficulty Seeing? No Information not available 04/18/2022 Is Blood Transfusion Acceptable In An Emergency? Yes Information not available 04/18/2022 What Is Your Level Of Caffeine Consumption? Occasional Information not available 04/18/2022 Are You Deaf Or Do You Have Serious Difficulty Hearing? No Information not available 04/18/2022 What Type Of Diet Are You Following? REGULAR Information not available 04/18/2022 Are There Any Guns Present In Your Home? No Information not available 04/18/2022 Do You Use Insect Repellent Routinely? No Information not available 04/18/2022 [facility] Information not available 04/18/2022 Do You Have A Medical Power Of Hand Folder? No Information not available 04/18/2022 Do You Have Any Pets? No Information not available 04/18/2022 What Is Your Relationship Status? Single Information not available 04/18/2022 Do You Have Smoke And Carbon Monoxide Detectors In Your Home? Yes Information not available 04/18/2022 Are You Passively Exposed To Smoke? No Information not available 04/18/2022 Are There Any Smokers In Your House? No Information not available 04/18/2022 Do You Use Sunscreen Routinely? Yes Information not available 04/18/2022 Have You Recently Traveled Abroad? No Information not available 04/18/2022 Do You Have Difficulty Walking Or Climbing Stairs? Yes Can't Bend Left Knee Information not available 04/18/2022 Do You Have Any Dietary Restrictions? No Information not available 04/18/2022 Sex: Unknown Functional Status Question Answer Note LastModified by Organizat ion Details LastModified Time What is your level of alcohol consumption? None [id number] Information not available 04/05/2022 Do you have transportation difficulties? Yes Information not available 04/18/2022 Are you able to walk? YESASSIST Walker Information not available 04/18/2022 Do you have difficulty doing errands alone? Yes Information not available 04/18/2022 Are you able to care for yourself independently? No [facility] [place] Information not available 04/18/2022 Do you have difficulty dressing, bathing, grooming, or toileting? Yes Information not available 04/18/2022 What is your exercise level? None Information not available 04/18/2022 Mental Status Question Answer Note LastModified by Organizat ion Details LastModified Time Do you feel stressed (tense, restless, nervous, or anxious, or unable to sleep at night)? [id number] Information not available 04/18/2022 Do you have difficulty concentrating, remembering or making decisions? No Information no t available 04/18/2022 Family History Relationship Description Onset Age of this Age Resolved Age Notes LastModified by Organization Details LastModified Time Father Heart disease [id number] Not available 04/05/2022 19:45:41 Father Hypertensive disorder [id number] Not available 04/05/2022 19:45:41 Mother Heart disease [id number] Not available 04/05/2022 19:45:41 Mother Hypertensive disorder [id number] Not available 04/05/2022 19:45:41 Mother Diabetes mellitus [id number] Not available 04/05/2022 19:45:41 Medical History Condition Response ARTHRITIS Y OSTEOPOROSIS Y HYPERTENSION Y Gynecological HistoryNo gynecological history recorded. Obstetrics History GPAL:G 0 P 0 0 0 0 Past Encounters Encounter ID Performer Location Encounter Start Date Encounter Closed Date Diagnosis/Indication Diagnosis SNOMED-CT Code Diagnosis ICD10 Code Diagnosis Note [id number] Carlitos García MD [facility] [address] [place] [address] 08/25/2020 00:00:00 08/25/2020 11:06:23 [id number] El Page MD [facility] [address] [address] 04/18/2022 12:13:09 04/18/2022 13:54:50 Pain of left knee joint 8639596844 21387 M25.562 Chronic Hyperlipidemia 00015333 E78.5 Hypertensive disorder 38 910444 I10 Obesity 204739488 E66.9 Depressive disorder 3548 9007 F32.A Anxiety disorder 3905223 06 F41.9 Bipolar disorder 9096077 4 F31.9 Hypothyroidism 26605909 E03.9 Impaired mobility 820660 05 Z74.09 History of left total knee replacement 0190073503 321599 Z96.652 Health Concerns Section Related Observation LastModified by Organization Detai ls LastModified Time None Recorded Concern Status LastModified by Organization Details LastModified Time None Recorded Advance Directives Directive Y: Payers Insurance Date Sequence Insurance Name Policy Number Policy Hernandez Covered Member ID Hernandez Member ID Guarantor Name 04/18/2022 1 [facility] A[facility] Kelly Mcmahon [id number] Kelly Mcmahon 05/04/2022 1 [employer] BETTER HEALTH - PREMIER PLAN - DUAL (MEDICARE - MEDICAID REPLACEMENT HMO) Kelly Mcmahon [id number] Kelly Mcmahon 04/18/2022 1 [employer] (MEDICARE REPLACEMENT/A DVANTAGE - HMO) [id number] Kelly Mcmahon [id number] Kelly Mcmahon OBGyn Episode No OBEpisode recorded.
--- OUTSIDE RECORDS SUMMARY | 2024-09-01 23:43 | XMS_ITS | Continuity of Care Document ---
Author Organization [facility] Address [address] [place] [address] Phone Care Team Providers Care Salad Bar Clerk Name Role Phone Geoff Freed MD Unavailable Unavailable Allergies, Adverse Reactions, Alerts Substance Reaction Status Criticality No Known Allergies Active No Inform ation Medications Medication Instructions Dosage Effective Dates (start - stop) Status Comments bupropion HCl XL 150 mg 24 hr tablet, extended release take 1 tablet by oral route every day 150 MG - Active venlafaxine ER 75 mg tablet,extended release 24 hr take 1 tablet by oral route every day in the morning at the same time each day with food 75 MG - Active levothyroxine 100 mcg tablet take 1 tablet by oral route every day 100 MCG - Active iron 325 mg (65 mg iron) tablet take 1 Tablet by ORAL route every day 325 MG - Active aspirin 81 mg tablet,delayed release take 1 tablet by oral route every day 81 MG - Active Unisom SleepGels 50 mg capsule take 1 capsule by oral route every day at bedtime as needed 50 MG - Active Advance Directives Directive Yes / No Effective Date File Name No Information Encounters Encounter Description Practice Location Reason(s) For Visit Diagnoses Date Provider Providers Copied on Encounter [facility], [address] [place] [address], [id number] tel:[phone] [facility] No Information 9 Abdiaziz Tellez. [address] [place] [address], [id number] , . tel:[phone] [facility], [address] [place] [address], [id number] tel:[phone] [facility] No Information Sep- 9 Manuel Aguero. [address] [place] [address], [id number] , . tel:[phone] Referring Provider: Michelle Evangelista DO, [address], [place], [address]. tel:[phone] Family History Family Member Type Diagnosis Age At Onset Problem (finding) Family history of No family history of colon cancer or polyps Immunizations Vaccine Date Status Comments Flu (split) (3 yrs or older) administered Source: Other Provider Payers Payer name Insurance type Covered green party ID Authoriza tion(s) No Information Social History Type Description Quantity Date Captured Comments Sex Female Smoking Status No Information Chief Complaint And Reason For Visit No Information Reason For Referral Reason For Referral No Information Plan Of Treatment Date Type Action Status Patient Education Colonoscopy: Before You r Procedure completed History Of Present Illness Encounter Date Complaint History Of Prese nt Illness No Information Functional Status Date Functional Assessmen t No Information Instructions Date Instruction Additional Infor mation No Information Assessments Type Assessment Date No Information Patient Care Teams Name Effective Dates (start - stop) Status Members No Information
--- OUTSIDE RECORDS SUMMARY | 2024-09-01 23:43 | XMS_ITS | Encounter Summary ---
Author Organization [facility] Address [address] [place] [address] Phone Care Team Providers Care Family Welfare Social Work Professor Name Role Phone Haseeb Brumfield MD Primary Care Provider [phone] No, Physician Primary Care Provider [phone] Haseeb Brumfield MD Unavailable [phone] Anibal Simon MD Unavailable [phone] Encounter Details Date Type Department Care Team (Late st Contact Info) Description 05/31/2021 Orders Only [facility] Scanning, Provider Social History Tobacco Use Types Packs/Day Years Used Date Smoking Tobacco: Never Smokeless Tobacco: Never Alcohol Use Standard Drinks/Week Comments No 0 (1 standard drink = 0.6 oz pur e alcohol) AUDIT-C Answer Date Recorded Q1: How often do you have a drink containing alc ohol? Never 05/21/2021 Average Number of Drinks Not on file 022 Frequency of Binge Drinking Not on file 05/06 PHQ-2 Answer Date Recorded PHQ-2 Total Score (If total score is 3 or more points, staff should administer the PHQ-9) 0 03/26/2021 Comments No Sex and Gender Information Value Date Recorded Sex Assigned at Not on file Legal Sex Female 12:48 AM MORTGAGE UNDERWRITER Gender Identity Not on file Sexual Orientation Not on file documented as of this encounter Plan of Treatment Not on file documented as of this encounter Procedures Procedure Name Priority Date/Time Associated Diagnosis Comments SCAN - LABS 05/31/2021 documented in this encounter Results * SCAN - LABS (05/31/2021) us Provider Scanning Final Result documented in this encounter Visit Diagnoses Not on filedocumented in this encounter Additional Health Concerns Infection Onset Date Last Indicated Resolved Time MRSA 03/23/2021 05/19/2021 11/15/2021 3:05 AM CDT COVID: Recovered Comment:Added based on recent COVID infection. 04/07/2021 04/07/2021 2021 3:05 AM C DT documented as of this encounter Care Teams Family Welfare Social Work Professor Relationship Specialty Start Date End Date Haseeb Brumfield MD PCP - General Family Medicine 05/23/18 11/19/23 No, Physician PCP - General 11/20/23 Haseeb Brumfield MD Family Medicine 11/20/23 Anibal Simon MD Consulting Physician Infectious Diseases 04/11/21 documented as of this encounter
--- OUTSIDE RECORDS SUMMARY | 2024-09-01 23:44 | XMS_ITS | Clinical Summary ---
Author Organization [facility] Address [address] [place] [address] Care Team Providers Care Limousine And Hearse Upholsterer Name Role Phone No, Physician Primary Care Provider [phone] Haseeb Brumfield MD Unavailable [phone] Anibal Simon MD Unavailable [phone] Allergies Active Allergy Reactions Criticality Noted Date [...] mcg tablet Take 25 mcg by mouth neon pumper before breakfast Active meloxicam (MOBIC) 15 mg [...] by mouth daily 30 tablet 11 04/06/19 Active cyclobenzaprine (FLEXERIL) 5 mg tablet Take 1 tablet (5 mg total) by mouth 3 (three) times a day as needed for muscle spasms 30 tablet 04/04/19 Active lithium 150 mg capsuleIndications :Mixed Bipolar I Disorder Take 150 mg by mouth 2 (two) times a day with meals Active HYDROcodone-acetam inophen (NORCO) 5-325 mg per tabletIndications: Pain Take 2 tablets by mouth every 4 (four) hours as needed for pain for up to 10 doses 20 tablet 05/28/[address] (PROTONIX) 40 mg EC tablet 06/08/19 Active lisinopriL (PRINIVIL,ZESTRIL) 40 mg tablet 07/10/19 Active levothyroxine (SYNTHROID) 25 mcg tablet Take 1 tablet (25 mcg total) by mouth neon pumper before breakfast 25 mcg PO Daily Active [...] (eight) hours as needed for pain 12/11/19 Active docusate sodium (COLACE) 100 mg capsuleIndications :constipation Take 1 capsule (100 mg total) by mouth every 12 (twelve) hours as needed for constipation 12/11/19 Active risperiDONE (RisperDAL) 0.5 mg tablet Take 1 tablet (0.5 mg total) by mouth 2 (two) times a day 0.5 mg PO BID AT BREAKFAST AND AT BEDTIME 12/11/19 Active lithium 150 mg capsule Take 1 capsule (150 mg total) by mouth every morning 150 mg PO Daily 12/11/19 Active lithium 300 mg tablet/capsule Take 1 [...] - Lamotrigine 150 mg Q nightly - [place] 150 mg b.i.d. - [place] levels 0.5.Therapeutic range (0.6-0.8) Assessment & Plan [...] been accepted by Dr. Ellie Mackenzie at [facility]. 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 We'll aim to give at least 6 weeks of therapy from when vancomycin was restarted, given that this is limb-salvage therapy PLAN - given the inconsistent administration of IV vancomycin during her admission at [facility], we'll extend her IV antimicrobial course until [...] will fax my note to her SFN ([facility]) RTC in 4 weeks Presence of left artificial knee joint Dissociative identity disorder 11/10/2020 Primary osteoarthritis of left knee 10/18/2020 Overview (10/18/2020): Added automatically from request for surgery [id number] Difficulty in walking, not elsewhere classified 08/21/2020 [...] PM CDT): Pt has decreased PO intake. Encounters Date Type Department Care Team Description 07/11/2024 Orders Only [facility] Orthopaedic Surgery [address] [place] [address] Medical Office Building [address] [place] [id number] Crow Bean MD 06/16/2024 Telephone [facility] Orthopaedic Surgery [address] [place] [address] Office Building [address] [place] [address] Crow Bean MD from Last 3 Months Immunizations Immunization Administration Dates Next Due Influenza, Quadrivalent, Spl it, Intramuscular 02/10/2015 Influenza, Trivalent, IM (MDV) 11/17/2013 Moderna SARS-CoV-2 Monovalen t Vaccination (12+ YRS) 01/06/2021,05/27/2020,05/05/2020 Surgical History Surgery Date Site/Laterality Comments OTHER SURGICAL HISTORY 1997 exc. cyst on head OTHER SURGICAL HISTORY 1999 schizophrenia: exc. cyst on lt. breast CHOLECYSTECTOMY 2005 Cholecystectomy HERNIA REPAIR 2005 Herniorrhaphy HERNIA REPAIR 2006 Hernia Repair OTHER SURGICAL HISTORY 2006 Open bran/hernia repair OTHER SURGICAL HISTORY Cyst excision Medical History Medical History Date Comments Hx Other Medical 2007 schizophrenia Hypertension Hypertension Hx Other Medical Morbid obesity 314 lbs Anxiety disorder Anxiety Arthritis Arthritis Hypothyroidism High cholesterol Family History Medical History Relation Name Comments Colon cancer Brother 1 Colon cancer - (Added by TW Conv) Hypertension Brother 2 Family history of hypertension - (Added by TW Conv) Hypertension Father Family history of hypertension - (Added by TW Conv) Diabetes Mother Family history of diabetes mellitus - (Added by TW Conv) Hypertension Mother Family history of hypertension - (Added by TW Conv) Relation Name Status Comments Brother 1 Brother 2 Father Mother Social History Tobacco Use Types Packs/Day Years Used Date Smoking Tobacco: Never Smokeless Tobacco: Never Tobacco Cessation:Counseling Given: No Alcohol Use Standard Drinks/Week Comments No 0 (1 standard drink = 0.6 oz pur e alcohol) [facility] Utilities Answer Date Recorded In the past 12 months has [employer], gas, oil, or water [employer] threatened to shut off services in your [...] 12/11/2023 How often do you attend chur or adventism services? Never 12/11/2023 Do you belong to any clubs o r organizations such as advent groups, unions, fraternal or athletic groups, or [...] any time in the past 12 m [facility], were you homeless or living in a assisted (including now)? No 12/11/2023 Personal Safety Answer Date Recorded Have you ever been in or are you currently in a harmful physical or emotional relationship or is someone making you feel afraid or unsafe? Denies 12/08/2023 Comments No Sex and Gender Information Value Date Recorded Sex Assigned at Not on file Legal Sex Female 12:48 AM CHIEF EXECUTIVE OR MANAGING DIRECTOR Gender Identity Not on file Sexual Orientation Not on file Obstetrics History Last Filed Vital Signs Vital Sign Reading Time Taken Comments Blood Pressure 150/82 12/11/2023 1:00 PM CHIEF EXECUTIVE OR MANAGING DIRECTOR Pulse 65 12/11/2023 1:00 PM CHIEF EXECUTIVE OR MANAGING DIRECTOR Temperature 37.3 C (99.2 F) 12/11/2023 3:56 PM CHIEF EXECUTIVE OR MANAGING DIRECTOR Respiratory Rate 16 12/11/2023 1:00 PM CHIEF EXECUTIVE OR MANAGING DIRECTOR Oxygen Saturation 95% 12/11/2023 1:00 PM CHIEF EXECUTIVE OR MANAGING DIRECTOR Inhaled Oxygen Concentration - - Weight 107.1 kg (236 lb 1.8 oz) 12/08/2023 3:25 PM CDT Height 167.6 cm (5' 6) 12/08/2023 3:25 PM CDT Body Mass Index 38.11 12/08/2023 3:25 PM CDT Plan of Treatment Health Maintenance Due Date Last Done Comments Breast Cancer Screening-Mammogram 1956 Colon Cancer Screening-Colonoscopy 1955 Osteoporosis Screening-Bone Density Scan 1956 DTaP/Tdap/Td Vaccine (1 - Tdap) 08/06/1967 Hepatitis B Screening 1974 Pneumococcal vaccine 65+ (1 of 1 - PCV) 2006 Zoster Vaccine (1 of 2) 2006 Well Visit 65+ 2021 Depression Screening 03/22/2022 03/22/2021 Covid-19 Vaccine (6 - 2023-2 5 season) 2023 01/06/2021, 05/27/2020, 05/27/2020, Additional history exists Influenza Vaccine (#1) 2024 02/10/2015, 2013 Fall Risk Assessment 12/10/2024 12/11/2023 Hepatitis C Screening Completed 03/22/2021 Medical Devices Implanted Type Area Muck Operator Device Identifier Shelf Expiration Date Model / Serial / Lot [employer] Simplex P Radiopaque Full Dose Cement Bone Sterile 6191-1-010 - [id number] Implanted:Qty: 3 on 05/21/2021 by Boni Herrera MD at [facility] Bone Cement Left: Knee [employer] 07/06/2023 6191-1-01 0 / / [id number] [employer] 5517-F-401 Triathlon Cruciate Retain Bead Knee Left 4 Component Femoral Pa - [id number] Implanted:Qty: 1 on 11/09/2020 by Frederick Astudillo MD at [facility] Left: Knee [employer] 08/17/2025 5517-F-40 1 / / [id number] [employer] 6017-T-490-E Insert Tibial Triathlon 4 H9mm Knee Bearing Condylar Stabilize Sterile - [id number] Implanted:Qty: 1 on 11/09/2020 by Frederick Astudillo MD at [facility] Left: Knee [employer] 06/15/2025 5531-G-40 9-E / / [id number] [employer] 5536-B-400 Triathlon Coated Knee 4 Baseplate Tibial Tritanium Sterile - [id number] Implanted:Qty: 1 on 11/09/2020 by Frederick Astudillo MD at [facility] Left: Knee [employer] 03/22/2025 5536-B-40 0 / / [id number] [employer] 5552-L-381 Tritanium 38mm 11mm Asymmetric Knee Component Patellar Metal - [id number] Implanted:Qty: 1 on 11/09/2020 by Frederick Astudillo MD at [facility] Left: Knee [employer] 07/07/2025 5552-L-38 1 / / [id number] [employer] 6195-1-001 Cement Bone Simplex Gentamicin High Viscosity 40gm - [id number] Implanted:Qty: 1 on 11/09/2020 by Frederick Astudillo MD at [facility] Left: Knee [employer] 02/04/2022 6195-1-00 1 / / [id number] [employer] 6195-1-001 Cement Bone Simplex Gentamicin High Viscosity 40gm - [id number] Implanted:Qty: 1 on 03/25/2021 by Frederick Astudillo MD at [facility] Left: Knee [employer] 07/05/2022 6195-1-00 1 / / [id number] [employer] Active Fixation Steroid Eluting Is 1 Connector Latex Free Sterile Atrial Ventricular Atrial Ventricular Solia 60cm [id number] - [id number] - [id number] Implanted:Qty: 1 on 12/10/2023 by Dago Cortes Jr., MD at [facility] [employer] 10/05/2025 [id number] / [id number] / [employer] Solia S 53cm Steroid Elute Bipolar Active Fixation Endocardial 019886 - [id number] - [id number] Implanted:Qty: 1 on 12/10/2023 by Dago Cortes Jr., MD at [facility] 11/04/2025 [id number] / [id number] / [employer] NetClarity Pacemaker Implantable Amvia Edge Dual Chamb Rate-Responsive 747018 - [id number] - [id number] Implanted:Qty: 1 on 12/10/2023 by Dago Cortes Jr., MD at [facility] 04/04/2025 [id number] / [id number] / Procedures Procedure Name Priority Date/Time Associated Diagnosis Comments HEPATITIS PANEL, ACUTE Routine 03/22/2021 5:27 PM CHIEF EXECUTIVE OR MANAGING DIRECTOR from Last 3 Months or Most Recently Relevant to Health Maintenance Results * Hepatitis panel, acute (03/22/2021 5:27 PM CHIEF EXECUTIVE OR MANAGING DIRECTOR) Hep A IgM Nonreactive Nonreactive CERNER MARGARET (JOSE) Comment: Interpretive Data: If Hep A IgM Ab is reported as Equivocal, a new sample should be drawn in two weeks for testing. Current interpretive data was last revised on 19. Testing performed by: [facility], [address] [place] [address]., [address] Hep B core IgM Nonreactive Nonreactive C ERNER [facility] (JOSE) Comment: Interpretive Data If HepB Core IgM Ab is reported as Equivocal, a new sample should be drawn in two weeks for testing. Current interpretive data was last revised on 19. Testing performed by: [facility], [address] [place] [address]., [id number] Hep C Ab Nonreactive Nonreactive C[facility] (JOSE) Comment: Interpretive Data Nonreactive: Antibodies to [...] revised on 2019. Testing performed by: [facility], [address] [place] [address]., [id number] HepBsAg Nonreactive Nonreactive BRUCEPO MARGARET (JOSE) Comment:Testing performed by : [facility], [address] [place] [address]., [address] Blood 03/22/2021 5:27 PM CHIEF EXECUTIVE OR MANAGING DIRECTOR 03/23/2021 10:31 AM CHIEF EXECUTIVE OR MANAGING DIRECTOR Brian Obrien MD LAB MICROBIOLOGY - GENERAL OR DERABLES Final Result RAKNA MARGARET (JOSE) 1 [facility] Department [place] [address] from Last 3 Months or Most Recently Relevant to Health Maintenance Insurance [facility] Address: [address] [address] [employer] MEDICARE [facility]OLD [facility] MED[facility] AETNA [facility] MEDICARE Advance Directives For more information, please contact: [phone] Documents on File Type Date Recorded Patient Product Manager Medical Device Expl anation ADVANCE DIRECTIVE 05/31/2021 5:59 AM POWER OF DENTAL HYGIENIST-MEDICAL ADVANCE DIRECTIVE 05/19/2021 3:26 PM POA ADVANCE [...] 9:08 AM 04/11/2021 4:33 PM Care Teams Limousine And Hearse Upholsterer Relationship Specialty Start Date End Date No, Physician PCP - General 11/20/23 Haseeb Brumfield MD Family Medicine 11/20/23 Anibal Simon MD Consulting Physician Infectious Diseases 04/11/21
--- OUTSIDE RECORDS SUMMARY | 2024-09-01 23:44 | XMS_ITS ---
Author Organization [facility] Address [address] [place] [address] Care Team Providers Care Floor Waxer Name Role Phone No, Physician Primary Care Provider [phone] Haseeb Brumfield MD Unavailable [phone] Anibal Simon MD Unavailable [phone] Dialysis Access Sites Type Status Location Placement Date Removal Da te Hemodialysis Cath Triple Inactive Right Thigh - Anterior 03/22/2021 03/24/2021 Procedures Procedure Name Priority Date/Time Associated Diagnosis Comments HEPATITIS PANEL, ACUTE Routine 03/22/2021 5:27 PM CEMENT TRUCK DRIVER from Last 3 Months or Most Recently Relevant to Health Maintenance Allergies Active Allergy Reactions Criticality Noted Date [...] mcg tablet Take 25 mcg by mouth processor grain before breakfast Active meloxicam (MOBIC) 15 mg [...] 1 tablet (25 mcg total) by mouth processor grain before breakfast 25 mcg PO Daily Active [...] - Lamotrigine 150 mg Q nightly - [place] 150 mg b.i.d. - [place] levels 0.5.Therapeutic range (0.6-0.8) Assessment & Plan [...] with increased knee pain and drainage on 4/10. Wound cx on 05/16 with MRSA. Started on dapto/CTX at OSH on 05/15 Will transition to vanc/cefepime given seemingly persistent wound infection Hydrocodone-APAP q4 PRN Follow up OSH susceptibilities Will consult ID here for assistance Ortho consult pending Assessment & Plan (05/18/2021 2:23 PM CDT): Pt has been accepted by Dr. Ellie Mackenzie at [place]. 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, pt is doing well. We'll aim to give at least 6 weeks of therapy from when vancomycin was restarted, given that this is limb-salvage therapy PLAN - given the inconsistent administration of IV vancomycin during her admission at [facility], we'll extend her IV antimicrobial course until [...] will fax my note to her SFN ([facility]) RTC in 4 weeks Presence of left artificial knee joint Dissociative identity disorder 11/10/2020 Primary osteoarthritis of left knee 10/18/2020 Overview (10/18/2020): Added automatically from request for surgery [id number] Difficulty in walking, not elsewhere classified 08/21/2020 Muscle weakness (generalized) 08/21/2020 Essential (primary) hypertension 08/18/2020 Fall on same level, unspecified, subsequent enco unter 08/18/2020 Major depressive disorder, single episode, unspe cified 08/18/2020 Other seizures 08/18/2020 Pain in left knee 08/18/2020 Vitamin D deficiency, unspecified 08/18/2020 Obesity with body mass index 30 or greater 12/02 Hernia, incisional 08/06/2015 Immunizations Immunization Administration Dates Next Due Influenza, Quadrivalent, Spl it, Intramuscular 02/10/2015 Influenza, Trivalent, IM (MDV) 11/17/2013 Moderna SARS-CoV-2 Monovalen t Vaccination (12+ YRS) 01/06/2021,05/27/2020,05/05/2020 Social History Tobacco Use Types Packs/Day Years Used Date Smoking Tobacco: Never Smokeless Tobacco: Never Tobacco Cessation:Counseling Given: No Alcohol Use Standard Drinks/Week Comments No 0 (1 standard drink = 0.6 oz pur e alcohol) [facility] Utilities Answer Date Recorded In the past 12 months has th [employer], gas, oil, or water [employer] threatened to shut off services in your [...] week 12/11/2023 How often do you attend [facility] or yarsani services? Never 12/11/2023 Do you belong to any clubs o r organizations such as gnosticist groups, unions, fraternal or athletic groups, or [...] any time in the past 12 m [facility], were you homeless or living in a prison (including now)? No 12/11/2023 Personal Safety Answer Date Recorded Have you ever been in or are you currently in a harmful physical or emotional relationship or is someone making you feel afraid or unsafe? Denies 12/08/2023 Comments No Sex and Gender Information Value Date Recorded Sex Assigned at Not on file Legal Sex Female 12:48 AM CEMENT TRUCK DRIVER Gender Identity Not on file Sexual Orientation Not on file Last Filed Vital Signs Vital Sign Reading Time Taken Comments Blood Pressure 150/82 12/11/2023 1:00 PM CEMENT TRUCK DRIVER Pulse 65 12/11/2023 1:00 PM CEMENT TRUCK DRIVER Temperature 37.3 C (99.2 F) 12/11/2023 3:56 PM CEMENT TRUCK DRIVER Respiratory Rate 16 12/11/2023 1:00 PM CEMENT TRUCK DRIVER Oxygen Saturation 95% 12/11/2023 1:00 PM CEMENT TRUCK DRIVER Inhaled Oxygen Concentration - - Weight 107.1 kg (236 lb 1.8 oz) 12/08/2023 3:25 PM CDT Height 167.6 cm (5' 6) 12/08/2023 3:25 PM CDT Body Mass Index 38.11 12/08/2023 3:25 PM CDT Results * Hepatitis panel, acute (03/22/2021 5:27 PM CEMENT TRUCK DRIVER) Hep A IgM Nonreactive Nonreactive RAKAN ROBLES (JOSE) Comment: Interpretive Data: If Hep A IgM Ab is reported as Equivocal, a new sample should be drawn in two weeks for testing. Current interpretive data was last revised on 19. Testing performed by: [facility], [address] [place] [address]., [id number] Hep B core IgM Nonreactive Nonreactive Karlie ROBLES (JOSE) Comment: Interpretive Data If HepB Core IgM Ab is reported as Equivocal, a new sample should be drawn in two weeks for testing. Current interpretive data was last revised on 19. Testing performed by: [facility], [address] [place] [address]., [id number] Hep C Ab Nonreactive Nonreactive RAKAN ROBLES [...] last revised on 2019. Testing performed by: [facility], [address] [place] [address]., [id number] HepBsAg Nonreactive Nonreactive RAKAN ROBLES (JOSE) Comment:Testing performed by : [facility], [address] [place] [address]., [id number] Blood 03/22/2021 5:27 PM CEMENT TRUCK DRIVER 03/23/2021 10:31 AM CEMENT TRUCK DRIVER us Brian Obrien MD LAB MICROBIOLOGY - GENERAL OR DERABLES Final Result RAKAN ROBLES (JOSE) 1 [facility] Department [place] [address] from Last 3 Months or Most Recently Relevant to Health Maintenance
--- OUTSIDE RECORDS SUMMARY | 2024-09-01 23:44 | XMS_ITS | Patient Health Record ---
Author Organization [facility] As [employer] Address [facility] [facility] [address] [facility] [address] [place] [address] Care Team Providers Care Inspector Optical Instrument Name Role Phone Lennox Valentine Unavailable [phone] Reason For Referral No Information Plan Of Treatment No Information
[2024-09-01 23:54] LABS: Hematocrit 39.9 % (37.0-47.0); Hemoglobin 12.7 g/dL (12.0-15.0); Immature Granulocyte Percent A 0.3 % (0-0.5); Lymphocytes Absolute Auto 0.84 K/mm3 (0.9-3.2); Mean Corpuscular HGB Conc 31.8 g/dl (32-36); Mean Corpuscular Hemoglobin 29.6 pg (26-34); Mean Corpuscular Volume 93.0 fl (80-100); Nucleated Red Blood Cells Absolute Auto 0.000 K/mm3 (0.0-0.012); Nucleated Red Blood Cells Perc 0.0 % (0.0-0.2); Platelet Count Result 217 k/mm3 (150-375); Red Blood Count 4.29 M/mm3 (4.2-5.4); White Blood Count 11.3 K/mm3 (4.5-10.0)
[2024-09-02] VITALS (12 sets, daily range): BP systolic 107–160; BP diastolic 56–92; PULSE 60–89; RESP 16–18; TEMP 36.5–37.9; O2SAT 96–99; BMI 38.0
[2024-09-02 00:10] LABS: INR 1.2; Prothrombin Time 15.6 Seconds (11.1-14.7)
[2024-09-02 00:11] LABS: Partial Thromboplastin Time 38.6 Seconds (22.3-36.8)
[2024-09-02 00:14] LABS: Alanine Aminotransferase 12 U/L (6-35); Albumin Level 3.7 g/dL (3.5-5.1); Alkaline Phosphatase 106 U/L (38-126); Anion Gap 8 mmol/L (4-12); Aspartate Amino Transferase 21 U/L (14-36); Bilirubin,Total 0.6 mg/dL (0.2-1.3); Blood Urea Nitrogen 21 mg/dL (7-17); CRP 3.3 mg/dL (<1.0); Calcium 9.2 mg/dL (8.4-10.2); Carbon Dioxide 26 mmol/L (22-30); Chloride 106 mmol/L (98-107); Estimated CRCL calculation 73 ml/min; Estimated Glomerular Filt Rate > 60; Glucose 137 mg/dL (65-110); Potassium 3.9 mmol/L (3.4-5.0); Sodium 140 mmol/L (137-145); Total Protein 7.3 g/dL (6.3-8.2)
[2024-09-02 00:21] LABS: Troponin I < 0.012 ng/mL (0.000-0.034)
[2024-09-02 00:30] LABS: Influenza A QL RT-PCR Negative (Negative); Influenza B QL RT-PCR Negative (Negative); RSV RNA, RT-PCR Negative (Negative); SARS-CoV-2 RNA PCR Negative (Negative)
[2024-09-02] MEDS: LACTATED RINGERS 1,000 ML 999 ML IV CONT ×2 (00:44→03:57)
--- NOTE | 2024-09-02 01:15 | ED_ITS ---
HPI - Weakness General Chief complaint: Weakness Stated complaint: FEVER, LETHARGY, SHALLOW RESPIRATIONS Time Seen by Provider: 09/01/24 23:16 History of Present Illness HPI Narrative: Patient presents here sent from a care home due to lethargy and fever, patient has history of schizophrenia, she states that she does not feel good, she reports congestion, denies dysuria or abd pain Related Data Home Medications ?Medication ?Instructions ?Recorded ?Confirmed ?Last Taken ?Type lamotrigine 150 mg tablet 150 mg PO HS 08/17/20 12/08/23 Unknown History levothyroxine 25 mcg tablet 25 mcg PO DAILY 08/17/20 12/08/23 Unknown History lisinopril 40 mg tablet 40 mg PO DAILY 08/17/20 12/08/23 Unknown History simvastatin 40 mg tablet 40 mg PO HS 08/17/20 12/08/23 Unknown History lithium carbonate 150 mg capsule 150 mg PO DAILY 05/31/21 12/08/23 Unknown History acetaminophen 325 mg tablet 650 mg PO Q6H PRN Pain 01/28/22 12/08/23 Unknown History (Tylenol) bisacodyl 10 mg rectal suppository 10 mg RECTAL DAILY PRN Constipation 01/28/22 12/08/23 Unknown History lithium carbonate 300 mg capsule 300 mg PO DAILY 01/28/22 12/08/23 Unknown History magnesium citrate 300 ml PO DAILY PRN Constipation 01/28/22 12/08/23 Unknown History magnesium hydroxide 400 mg/5 mL 30 ml PO HS PRN Constipation 01/28/22 12/08/23 Unknown History oral suspension (Milk of Magnesia) ondansetron 4 mg disintegrating 4 mg PO Q6H PRN Nausea 01/28/22 12/08/23 Unknown History tablet sodium phosphates 19 gram-7 118 ml RECTAL DAILY PRN 01/28/22 12/08/23 Unknown History gram/118 mL enema (Fleet Enema) Constipation ascorbic acid (vitamin C) 500 mg 500 mg PO DAILY 12/08/23 12/08/23 Unknown History tablet ergocalciferol (vitamin D2) 50,000 50,000 unit PO DAILY 12/08/23 12/08/23 Unknown History unit tablet fluoxetine 40 mg capsule 40 mg PO DAILY 12/08/23 12/08/23 Unknown History guaifenesin 100 mg/5 mL oral 100 mg PO Q4H PRN Cough 12/08/23 12/08/23 Unknown History liquid (Marybeth-Tussin) ketoconazole 2 % topical cream 1 applic topical DAILY 12/08/23 12/08/23 Unknown History loperamide 2 mg capsule 2 mg PO DAILY PRN Diarrhea 12/08/23 12/08/23 Unknown History (Anti-Diarrheal (loperamide)) mecobalamin (vitamin B12) 500 mcg 500 mcg PO DAILY 12/08/23 12/08/23 Unknown History chewable tablet meloxicam 7.5 mg tablet 7.5 mg PO DAILY 12/08/23 12/08/23 Unknown History risperidone 0.5 mg tablet 0.5 mg PO BID 12/08/23 12/08/23 Unknown History Allergies Allergy/AdvReac Type Severity Reaction Status Date / Time meperidine Allergy Unknown Vomiting Verified 12/08/23 06:29 Penicillins Allergy Unknown Rash Verified 12/08/23 06:29 Review of Systems 2 Review of Systems: All systems reviewed & are unremarkable except as noted in HPI and below PMFSH Past Medical History Medical History Abnormal small bowel x-ray Anxiety Arthritis Bipolar disorder Cerebrovascular accident Depression Hip fracture, left (05/06/17) Hypertension Hypothyroidism Knee osteomyelitis Nausea and vomiting in adult Schizophrenia Seizures Patient denies. Surgical History Surgical History History of inguinal hernia repair History of left knee replacement Subsequent hardware removal due to infection. History of open reduction and internal fixation (ORIF) procedure Repair of left hip fracture. Family History Family History Mother Family history of heart disease in male family member before age 55 Father Acute myocardial infarction Other Diabetes mellitus Family history of malignant neoplasm Hypertension Social History Social History Social History: Surrogate medical decision maker: Jessica Mcmahon, [id number]. Code status: Full code. Smoking status: Never smoker Alcohol intake: never Substance use: never Substance use type: does not use Do You Feel Safe in your Home?: Yes Lack of Transportation: No Lack of Food: Never True Current Housing: I Have Housing Concerned About Future Housing: No Difficulty Paying Gas/Electric Bills: No Difficulty Paying for Meds: No Currently Unemployed: No Education: Don't Know Difficulty w/ Childcare or Family Care: No Living arrangements: with family Additional living arrangements comments: Lives with brother and [id number]. [facility] following removal of left knee replacement due to infection. Spiritual care concerns: No Exam 2 Narrative: EXAMINATION OF ORGAN SYSTEMS/BODY AREAS: Constitutional: Vital signs per nursing GENERAL: Appears uncomfortable, diaphoresis HEAD: Normal with no signs of head trauma. EYES: EOMI, conjunctiva normal ENT: Slight congestion LUNGS: Nonlabored breathing. Clear to auscultation bilaterally HEART: [Regular rate and rhythm] ABD: [Soft], [nontender to palpation] EXT: Normal range of motion SKIN: [No rashes or lesions.] NEURO: [Slightly slow to respond. No gross focal sensory or strength deficits.] PSYCH: Flat affect Course Vital Signs Vital signs: Vital Signs Temperature 100.2 F H 09/01/24 23:07 Pulse Rate 82 09/01/24 23:07 Respiratory Rate 19 09/01/24 23:07 Blood Pressure 100/55 L 09/01/24 23:07 Pulse Oximetry 96 09/01/24 23:07 Oxygen Delivery Room Air 09/01/24 23:07 Temperature 100.2 F H 09/01/24 23:07 Pulse Rate 83 09/01/24 23:15 Respiratory Rate 19 09/01/24 23:07 Blood Pressure 100/55 L 09/01/24 23:07 Pulse Oximetry 96 09/01/24 23:07 Oxygen Delivery Room Air 09/01/24 23:07 MDM - Weakness MDM Narrative Medical decision making narrative: 69 year-old patient presenting with fever, altered mental status. Initially she does have a fever and slightly low blood pressure, septic workup initiated, antibiotics started. Chest x-ray on my independent interpretation does not show any obvious consolidation or signs of pneumonia. EKG on my independent interpretation shows normal sinus rhythm rate 76, [place] 232, QRS 185, QTC 508. Fluids started. Given her cardiac history I will be judicious with fluids. Urinalysis is obtained and positive for signs of infection. Patient denies any abdominal pain and no prior history of kidney stones per my review of CTs in the past. Urine culture sent. Patient started on ceftriaxone and admitted to hospitalist. Lab Data 09/01/24 23:46 09/01/24 23:46 Labs: Lab Results 09/01/24 09/02/24 09/02/24 Range/Units 23:46 01:25 01:57 WBC 11.3 H (4.5-10.0) K/mm3 RBC 4.29 (4.2-5.4) M/mm3 Hgb 12.7 (12.0-15.0) g/dL Hct 39.9 (37.0-47.0) % MCV 93.0 (80-100) fl MCH 29.6 (26-34) pg MCHC 31.8 L (32-36) g/dl RDW 13.7 (11.5-14.5) % Plt Count 217 (150-375) k/mm3 MPV 9.2 (7.4-10.4) fl Immature Gran % (Auto) 0.3 (0-0.5) % Neut % (Auto) 79.9 H (45.5-73.1) % Lymph % (Auto) 7.4 L (18.3-44.2) % [place] % (Auto) 11.8 H (2.6-8.5) % Eos % (Auto) 0.2 (0-4.4) % Baso % (Auto) 0.4 (0.2-1.2) % Lymph # (Auto) 0.84 L (0.9-3.2) K/mm3 [place] # (Auto) 1.3 H (0.1-0.6) K/mm3 Eos # (Auto) 0.0 (0-0.3) K/mm3 Baso # (Auto) 0.0 (0.0-0.1) K/mm3 Abs Immat Gran (auto) 0.03 (0.00-0.031) K/mm3 Absolute Neuts (auto) 9.0 H (1.3-6.7) K/mm3 Absolute Nucleated RBC 0.000 (0.0-0.012) K/mm3 Nucleated RBC % 0.0 (0.0-0.2) % PT 15.6 H (11.1-14.7) Seconds INR 1.2 APTT 38.6 H (22.3-36.8) Seconds Sodium 140 (137-145) mmol/L Potassium 3.9 (3.4-5.0) mmol/L Chloride 106 (98-107) mmol/L Carbon Dioxide 26 (22-30) mmol/L Anion Gap 8 (4-12) mmol/L BUN 21 H (7-17) mg/dL Creatinine 0.82 (0.7-1.0) mg/dL Estim Creat Clear Calc 73 ml/min Estimated GFR > 60 (59 - ) Glucose 137 H (65-110) mg/dL Lactic Acid 0.7 (0.7-2.0) mmol/L Calcium 9.2 (8.4-10.2) mg/dL Total Bilirubin 0.6 (0.2-1.3) mg/dL AST 21 (14-36) U/L ALT 12 (6-35) U/L Alkaline Phosphatase 106 (38-126) U/L Troponin I < 0.012 (0.000-0.034) ng/mL C-Reactive Protein 3.3 H (<1.0) mg/dL Total Protein 7.3 (6.3-8.2) g/dL Albumin 3.7 (3.5-5.1) g/dL Urine Color Yellow (Yellow) Urine Appearance Cloudy H (Clear) Urine pH 6.0 (5.0-9.0) Ur Specific [place] 1.017 (1.001-1.035) Urine Protein 1+ H (Negative) mg/dL Urine Glucose (UA) Negative (Negative) mg/dL Urine Ketones Trace H (Negative) mg/dL Ur Blood (Man) 1+ H (Negative) Urine Nitrate Negative (Negative) Urine Bilirubin Negative (Negative) Urine Urobilinogen 2.0 H (<2.0) mg/dL Add Ur Microanalysis Reviewed Leukocyte Esterase Rfl 3+ H (Negative) FELICITY/UL Urine RBC 11-20 H (0-2) /hpf Urine WBC >100 H (0-3) /hpf Ur Squamous Epith Cells Few (Few) /hpf Urine Bacteria 4+ H /hpf Urine Casts 0-2 [place] Pending Influenza A (RT-PCR) Negative (Negative) Influenza B (RT-PCR) Negative (Negative) RSV (RT-PCR) Negative (Negative) SARS-CoV-2 RNA (RT-PCR) Negative (Negative) Critical Care Time Critical Care Time Critical Care Time: Yes Total Critical Care Time: 31 Discharge Plan Discharge Clinical Impression: Sepsis, Acute UTI Patient Disposition: Still a Patient Condition: Stable Patient Language: Greenlandic Prescriptions: No Action lamotrigine 150 mg tablet 150 mg PO HS simvastatin 40 mg tablet 40 mg PO HS levothyroxine 25 mcg tablet 25 mcg PO DAILY lisinopril 40 mg tablet 40 mg PO DAILY acetaminophen [Tylenol] 325 mg Tablet 650 mg PO Q6H PRN (Reason: Pain) magnesium hydroxide [Milk of Magnesia] 400 mg/5 mL Suspension 30 ml PO HS PRN (Reason: Constipation) Rx Instructions: give 30 ml by mouth every 24 hours as needed for constipation at bedtime if no bm in 3 days lithium carbonate 300 mg Capsule 300 mg PO DAILY bisacodyl 10 mg Suppository 10 mg RECTAL DAILY PRN (Reason: Constipation) Rx Instructions: q 24 hrs as needed for constipation daily if no results with MOM Fleet Enema 19-7 gram/118 mL Enema 118 ml RECTAL DAILY PRN (Reason: Constipation) Rx Instructions: q24 hrs as needed for constipation if no results 1 day after suppository magnesium citrate Solution 300 ml PO DAILY PRN (Reason: Constipation) Rx Instructions: give 300 ml by mouth every 24 hours as needed for constipation in am if no results after enema. if no results within 1 hours, contact MD immediately for further orders ondansetron 4 mg Tablet,Disintegrating 4 mg PO Q6H PRN (Reason: Nausea) lithium carbonate 150 mg capsule 150 mg PO DAILY ferrous sulfate 325 mg (65 mg iron) tablet 325 mg PO BID Qty: 60 0RF pantoprazole 40 mg tablet,delayed release (DR/EC) 40 mg PO QAM Qty: 30 0RF fluoxetine 40 mg Capsule 40 mg PO DAILY loperamide [Anti-Diarrheal (loperamide)] 2 mg Capsule 2 mg PO DAILY PRN (Reason: Diarrhea) guaifenesin [Marybeth-Tussin] 100 mg/5 mL Liquid 100 mg PO Q4H PRN (Reason: Cough) ergocalciferol (vitamin D2) 50,000 unit Tablet 50,000 unit PO DAILY Rx Instructions: give every thrusday meloxicam 7.5 mg Tablet 7.5 mg PO DAILY ascorbic acid (vitamin C) 500 mg Tablet 500 mg PO DAILY ketoconazole 2 % Cream 1 applic TOPICAL DAILY Rx Instructions: apply to breasts, abdomen and groin folds risperidone 0.5 mg Tablet 0.5 mg PO BID mecobalamin (vitamin B12) 500 mcg Tablet,Chewable 500 mcg PO DAILY Follow-up/Referrals: Haseeb Brumfield MD [Primary Care Provider] -
[2024-09-02 02:17] LABS: Add Urine Microscopic? YES; Appearance Urine Cloudy (Clear); Glucose Urine UA Negative (Negative); Leukocyte Esterase Ur 3+ LEU/UL (Negative); Need Manual Microscopic Reviewed; Nitrate Urine Negative (Negative); Non Pathogenic Casts 0-2; Specific Grav Ur 1.017 (1.001-1.035)
[2024-09-02 02:52] LABS: Lithium 0.7 mmol/L (0.6-1.2)
--- NOTE | 2024-09-02 03:03 | PC.NURSE ---
This RN spoke with Wally at [facility] and updated about pts POC and admission
[2024-09-02] MEDS: cefTRIAXone 2 GM in SODIUM CHLORIDE 0.9% IV 50 ML 100 ML IVPB (03:15)
--- NOTE | 2024-09-02 03:28 | ADMGEN ---
This patient, Kelly Mcmahon, was admitted to Medical Room 347-. Patient/family oriented to hospital policies and general routines including ID bracelet, bed and alarms, visiting hours, pain management, procedures, bathroom and other care routines, personal items, smoking policy, room service/diet, and visiting hours. Information on how to activate the Rapid Response Team has been discussed. Patient/Family are encouraged to report perceived risks to care and to ask questions if they do not understand what they are told or what they should do.
[2024-09-02] MEDS: LACTATED RINGERS 1,000 ML 100 ML IV CONT ×2 (05:55→16:30)
[2024-09-02 06:16] LABS: Hematocrit 36.3 % (37.0-47.0); Hemoglobin 11.0 g/dL (12.0-15.0); Immature Granulocyte Percent A 0.5 % (0-0.5); Lymphocytes Absolute Auto 0.90 K/mm3 (0.9-3.2); Mean Corpuscular HGB Conc 30.3 g/dl (32-36); Mean Corpuscular Hemoglobin 28.9 pg (26-34); Mean Corpuscular Volume 95.5 fl (80-100); Nucleated Red Blood Cells Absolute Auto 0.000 K/mm3 (0.0-0.012); Nucleated Red Blood Cells Perc 0.0 % (0.0-0.2); Platelet Count Result 201 k/mm3 (150-375); Red Blood Count 3.80 M/mm3 (4.2-5.4); White Blood Count 9.3 K/mm3 (4.5-10.0)
[2024-09-02 06:33] LABS: Anion Gap 4 mmol/L (4-12); Blood Urea Nitrogen 22 mg/dL (7-17); Calcium 8.6 mg/dL (8.4-10.2); Carbon Dioxide 28 mmol/L (22-30); Chloride 107 mmol/L (98-107); Estimated CRCL calculation 78 ml/min; Estimated Glomerular Filt Rate > 60; Glucose 105 mg/dL (65-110); Magnesium 2.0 mg/dL (1.6-2.3); Sodium 139 mmol/L (137-145)
[2024-09-02 06:42] LABS: Potassium 3.7 mmol/L (3.4-5.0)
--- NOTE | 2024-09-02 18:15 | P.HP_ITS ---
H&P: HPI History of Present Illness Date/Time: 09/02/24 18:15 Chief Complaint: Weakness Narrative: HPI Narrative: Patient presents here sent from a skilled nursing due to lethargy and fever, patient has history of schizophrenia, she states that she does not feel good, she reports congestion, denies dysuria or abd pain Medical decision making narrative: 69 year-old patient presenting with fever, altered mental status. Initially she does have a fever and slightly low blood pressure, septic workup initiated, antibiotics started. Chest x-ray on my independent interpretation does not show any obvious consolidation or signs of pneumonia. EKG on my independent interpretation shows normal sinus rhythm rate 76, [place] 232, QRS 185, QTC 508. Fluids started. Given her cardiac history I will be judicious with fluids. Urinalysis is obtained and positive for signs of infection. Patient denies any abdominal pain and no prior history of kidney stones per my review of CTs in the past. Urine culture sent. Patient started on ceftriaxone and admitted to hospitalist. Currently patient is unable to provider any ROS or history as she is talking to someone who is not present in the room concerning for abdominal pain, patient urine is suspicious for UTI and being treated with ceftriaxone, most likely her symptoms have at aggravated by the UTI, will monitor. once clinically stable, will have PT/OT evaluate the patient. [facility] Past Medical History Medical History Abnormal small bowel x-ray Anxiety Arthritis Bipolar disorder Cerebrovascular accident Depression Hip fracture, left (05/06/17) Hypertension Hypothyroidism Knee osteomyelitis Nausea and vomiting in adult Schizophrenia Seizures Patient denies. Surgical History Surgical History History of inguinal hernia repair History of left knee replacement Subsequent hardware removal due to infection. History of open reduction and internal fixation (ORIF) procedure Repair of left hip fracture. Family History Family History Mother Family history of heart disease in male family member before age 55 Father Acute myocardial infarction Other Diabetes mellitus Family history of malignant neoplasm Hypertension Social History Social History Social History: Surrogate medical decision maker: Jessica Mcmahon, [id number]. Code status: Full code. Smoking status: Never smoker Alcohol intake: never Substance use: never Substance use type: does not use Do You Feel Safe in your Home?: Yes Lack of Transportation: No Lack of Food: Never True Current Housing: I Have Housing Concerned About Future Housing: No Difficulty Paying Gas/Electric Bills: No Difficulty Paying for Meds: No Currently Unemployed: No Education: High School Diploma/GED Difficulty w/ Childcare or Family Care: No Living arrangements: with family Additional living arrangements comments: Lives with brother and [id number]. [facility] following removal of left knee replacement due to infection. Spiritual care concerns: No Meds Home Medications and Allergies Home Medications ?Medication ?Instructions ?Recorded ?Confirmed ?Type lamotrigine 150 mg tablet 150 mg PO HS 08/17/20 09/02/24 History levothyroxine 25 mcg tablet 25 mcg PO DAILY 08/17/20 09/02/24 History lisinopril 40 mg tablet 40 mg PO DAILY 08/17/20 09/02/24 History simvastatin 40 mg tablet 40 mg PO HS 08/17/20 09/02/24 History ferrous sulfate 325 mg (65 mg 325 mg PO BID #60 tabs 06/03/21 09/02/24 Rx iron) tablet pantoprazole 40 mg tablet,delayed 40 mg PO QAM #30 tabs 06/06/21 09/02/24 Rx release acetaminophen 325 mg tablet 650 mg PO Q6H PRN Pain 01/28/22 09/02/24 History (Tylenol) bisacodyl 10 mg rectal suppository 10 mg RECTAL DAILY PRN Constipation 01/28/22 09/02/24 History lithium carbonate 300 mg capsule 300 mg PO BID 01/28/22 09/02/24 History magnesium citrate 300 ml PO DAILY PRN Constipation 01/28/22 09/02/24 History magnesium hydroxide 400 mg/5 mL 30 ml PO HS PRN Constipation 01/28/22 09/02/24 History oral suspension (Milk of Magnesia) ondansetron 4 mg disintegrating 4 mg PO Q6H PRN Nausea 01/28/22 09/02/24 History tablet sodium phosphates 19 gram-7 118 ml RECTAL DAILY PRN 01/28/22 09/02/24 History gram/118 mL enema (Fleet Enema) Constipation ascorbic acid (vitamin C) 500 mg 500 mg PO BID 12/08/23 09/02/24 History tablet fluoxetine 40 mg capsule 40 mg PO DAILY 12/08/23 09/02/24 History guaifenesin 100 mg/5 mL oral 100 mg PO Q4H PRN Cough 12/08/23 09/02/24 History liquid (Marybeth-Tussin) meloxicam 7.5 mg tablet 7.5 mg PO DAILY 12/08/23 09/02/24 History risperidone 0.5 mg tablet 1 mg PO BID 12/08/23 09/02/24 History cholecalciferol (vitamin D3) 25 2,000 unit PO DAILY 09/02/24 09/02/24 History mcg (1,000 unit) capsule docusate sodium 100 mg capsule 100 mg PO .q12hr PRN constipation 09/02/24 09/02/24 History ketoconazole 2 % shampoo 1 applic topical 2XW 09/02/24 09/02/24 History tramadol 50 mg tablet 50 mg PO Q8H PRN moderate pain 09/02/24 09/02/24 History Allergies Allergy/AdvReac Type Severity Reaction Status Date / Time meperidine Allergy Unknown Vomiting Verified 09/02/24 03:50 Penicillins Allergy Unknown Rash Verified 09/02/24 03:50 Vital Signs Vital Signs - 24 hr 09/01/24 23:07 09/01/24 23:15 09/02/24 02:52 Temperature 37.9 C H 37.6 C H Pulse Rate 82 83 66 Respiratory Rate 19 17 Blood Pressure 100/55 L 107/56 L Pulse Oximetry 96 96 Oxygen Delivery Room Air 09/02/24 03:32 09/02/24 03:35 09/02/24 04:00 Temperature 37.6 C H 36.5 C Pulse Rate 66 65 63 Respiratory Rate 17 16 Blood Pressure 107/56 L 107/57 L Pulse Oximetry 96 97 Oxygen Delivery 09/02/24 04:07 09/02/24 06:00 09/02/24 07:50 Temperature 37.0 C Pulse Rate 60 Respiratory Rate 18 Blood Pressure 125/72 Pulse Oximetry 99 Oxygen Delivery Room Air Room Air 09/02/24 07:50 09/02/24 08:06 09/02/24 12:00 Temperature Pulse Rate 60 63 Respiratory Rate Blood Pressure Pulse Oximetry 96 Oxygen Delivery Room Air 09/02/24 14:00 09/02/24 16:00 Temperature 36.7 C Pulse Rate 67 65 Respiratory Rate 18 Blood Pressure 126/74 Pulse Oximetry 96 Oxygen Delivery Exam Narrative: Morbidly obese Patient is comfortable, NAD HEENT: eyes are clear and none icteric LUNGS:CTA HEART: RR S1S2 ABD: BS+, Soft and nontender Lower extremities: no edema SKIN: nonjaundiced Neuro: grossly intact. Confused H&P: Results Labs Labs: Short CBC 09/01/24 09/02/24 Range/Units 23:46 05:32 WBC 11.3 H 9.3 (4.5-10.0) K/mm3 Hgb 12.7 11.0 L (12.0-15.0) g/dL Hct 39.9 36.3 L (37.0-47.0) % Plt Count 217 201 (150-375) k/mm3 BMP 09/01/24 09/02/24 23:46 05:32 Sodium 140 139 Potassium 3.9 3.7 Chloride 106 107 Carbon Dioxide 26 28 BUN 21 H 22 H Creatinine 0.82 0.74 Glucose 137 H 105 Calcium 9.2 8.6 Cardiac Enzymes 09/01/24 Range/Units 23:46 Troponin I < 0.012 (0.000-0.034) ng/mL Liver Function 09/01/24 Range/Units 23:46 Total Bilirubin 0.6 (0.2-1.3) mg/dL AST 21 (14-36) U/L ALT 12 (6-35) U/L Alkaline Phosphatase 106 (38-126) U/L Albumin 3.7 (3.5-5.1) g/dL Urine 09/02/24 Range/Units 01:57 Urine Color Yellow (Yellow) Urine Appearance Cloudy H (Clear) Urine pH 6.0 (5.0-9.0) Ur Specific [place] 1.017 (1.001-1.035) Urine Protein 1+ H (Negative) mg/dL Urine Glucose (UA) Negative (Negative) mg/dL Assessment and Plan Assessment and plan (1) Schizophrenia: Code(s): F20.9 - Schizophrenia, unspecified Status: Acute (2) Bipolar disorder: Code(s): F31.9 - Bipolar disorder, unspecified Status: Acute (3) HTN (hypertension): Code(s): I10 - Essential (primary) hypertension Status: Acute (4) Hypertension: Code(s): I10 - Essential (primary) hypertension Status: Chronic (5) Acute UTI: Code(s): N39.0 - Urinary tract infection, site not specified Status: Acute Plan Currently patient is unable to provider any ROS or history as she is talking to someone who is not present in the room concerning for abdominal pain, patient urine is suspicious for UTI and being treated with ceftriaxone, most likely her symptoms have at aggravated by the UTI, will monitor. once clinically stable, will have PT/OT evaluate the patient. Quality VTE Prophylaxis VTE prophylaxis: mechanical ordered Hospitalist MIPS Advance Care Plan I have confirmed that the patient's Advanced Care Plan is present, code status is documented, or surrogate decision maker is listed in patient medical record.: Yes Medication Reconciliation I have utilized all available resources to obtain, update and review the patients current medications (includes all prescriptions, OTC, herbals, cannabis, and nutritional supplements).: Yes
[2024-09-03] VITALS (10 sets, daily range): BP systolic 128–130; BP diastolic 65–70; PULSE 61–77; RESP 18; TEMP 36.7–36.9; O2SAT 96
[2024-09-03] MEDS: LACTATED RINGERS 1,000 ML 100 ML IV CONT (13:19)
--- NOTE | 2024-09-03 15:26 | PM.IMPN ---
Progress Note: A&P Assessment and Plan (1) Schizophrenia: Code(s): F20.9 - Schizophrenia, unspecified Status: Acute (2) Bipolar disorder: Code(s): F31.9 - Bipolar disorder, unspecified Status: Acute (3) HTN (hypertension): Code(s): I10 - Essential (primary) hypertension Status: Acute (4) Acute UTI: Code(s): N39.0 - Urinary tract infection, site not specified Status: Acute Plan Currently patient is unable to provider any ROS or history as she is talking to someone who is not present in the room concerning for abdominal pain, patient urine is suspicious for UTI and being treated with ceftriaxone, most likely her symptoms have at aggravated by the UTI, urine and blood culture are pending, patient is being treated with will monitor. once clinically stable, will have PT/OT evaluate the patient. Subjective Date/time seen: 09/03/24 15:26 Interval history: H&P-HPI Narrative: Patient presents here sent from a correction due to lethargy and fever, patient has history of schizophrenia, she states that she does not feel good, she reports congestion, denies dysuria or abd pain Medical decision making narrative: 69 year-old patient presenting with fever, altered mental status. Initially she does have a fever and slightly low blood pressure, septic workup initiated, antibiotics started. Chest x-ray on my independent interpretation does not show any obvious consolidation or signs of pneumonia. EKG on my independent interpretation shows normal sinus rhythm rate 76, [place] 232, QRS 185, QTC 508. Fluids started. Given her cardiac history I will be judicious with fluids. Urinalysis is obtained and positive for signs of infection. Patient denies any abdominal pain and no prior history of kidney stones per my review of CTs in the past. Urine culture sent. Patient started on ceftriaxone and admitted to hospitalist. Currently patient is unable to provider any ROS or history as she is talking to someone who is not present in the room concerning for abdominal pain, patient urine is suspicious for UTI and being treated with ceftriaxone, most likely her symptoms have at aggravated by the UTI, urine and blood culture are pending, patient is being treated with will monitor. once clinically stable, will have PT/OT evaluate the patient. Exam Narrative: Morbidly obese Patient is comfortable, NAD HEENT: eyes are clear and none icteric LUNGS:CTA HEART: RR S1S2 ABD: BS+, Soft and nontender Lower extremities: no edema SKIN: nonjaundiced Neuro: grossly intact. Confused Objective Data Vital Signs Vital Signs: Vital Signs - 24 hr 09/02/24 16:00 09/02/24 20:00 09/02/24 20:00 Temperature Pulse Rate 65 89 Respiratory Rate Blood Pressure Pulse Oximetry Oxygen Delivery Room Air 09/02/24 22:00 09/03/24 00:19 09/03/24 04:00 Temperature 37.9 C H Pulse Rate 86 77 65 Respiratory Rate 16 Blood Pressure 160/92 H Pulse Oximetry 96 Oxygen Delivery 09/03/24 06:00 09/03/24 08:00 09/03/24 08:00 Temperature 36.7 C Pulse Rate 72 73 Respiratory Rate 18 Blood Pressure 130/68 Pulse Oximetry 96 Oxygen Delivery Room Air 09/03/24 12:00 09/03/24 14:00 Temperature 36.7 C Pulse Rate 61 76 Respiratory Rate 18 Blood Pressure 128/70 Pulse Oximetry 96 Oxygen Delivery Intake/Output Intake/Output: Intake & Output 08/31/24 09/01/24 09/02/24 09/03/24 23:59 23:59 23:59 23:59 Intake Total 4436.0 2104 Output Total 310 Balance 4126.0 2104 Meds/Results Medications: Active Medications Generic Name Dose Route Start Last Admin Trade Name Freq PRN Reason Stop Dose Admin Lactated Ringer's 1,000 mls @ 100 mls/hr 09/02/24 05:25 09/03/24 13:19 Lr - Lactated Ringers Iv IV CONT 100 mls/hr .Q10H CANDICE Administration Radiology Results: ITS Impressions Chest X-Ray 09/02/24 07:34 Impression: 1: No acute cardiopulmonary disease. Quality VTE Prophylaxis VTE prophylaxis: mechanical ordered
[2024-09-03] MEDS: cefTRIAXone 1 GM in SODIUM CHLORIDE 0.9% IV 50 ML 100 ML IVPB (17:33)
[2024-09-03] MEDS: ASCORBIC ACID 500 MG TABLET PO (17:33)
[2024-09-03] MEDS: FERROUS SULFATE 325 MG TABLET DR PO (17:33)
[2024-09-03] MEDS: SIMVASTATIN 20 MG TABLET 40 MG PO (20:38)
[2024-09-03] MEDS: LITHIUM CARBONATE 300 MG CAPSULE PO (20:39)
[2024-09-04] VITALS (9 sets, daily range): BP systolic 122–139; BP diastolic 58–66; PULSE 60–67; RESP 18; TEMP 36.4–36.9; O2SAT 96–98
[2024-09-04] MEDS: LACTATED RINGERS 1,000 ML 100 ML IV CONT ×3 (00:30→22:00)
[2024-09-04] MEDS: LEVOTHYROXINE SODIUM 25 MCG TABLET PO (06:28)
[2024-09-04] MEDS: ASCORBIC ACID 500 MG TABLET PO ×2 (08:57→17:02)
[2024-09-04] MEDS: MELOXICAM 7.5 MG TABLET PO (08:58)
[2024-09-04] MEDS: PANTOPRAZOLE 40 MG TABLET PO (08:58)
[2024-09-04] MEDS: FERROUS SULFATE 325 MG TABLET DR PO ×2 (08:59→17:02)
[2024-09-04] MEDS: CHOLECALCIFEROL (VITAMIN D3) 25 MCG (1,000 UNITS) TABLET 50 MCG PO (08:59)
[2024-09-04] MEDS: LITHIUM CARBONATE 300 MG CAPSULE PO ×2 (08:59→20:37)
[2024-09-04] MEDS: SELENIUM SULFIDE 1% SHAMPOO 207 ML 1 APPLIC TOPICAL (09:00)
--- NOTE | 2024-09-04 14:03 | P.PNIM_ITS ---
Progress Note: A&P Assessment and Plan (1) Schizophrenia: Code(s): F20.9 - Schizophrenia, unspecified Status: Acute (2) Bipolar disorder: Code(s): F31.9 - Bipolar disorder, unspecified Status: Acute (3) HTN (hypertension): Code(s): I10 - Essential (primary) hypertension Status: Acute (4) Acute UTI: Code(s): N39.0 - Urinary tract infection, site not specified Status: Acute Plan upon arrival patient was unable to provider any ROS or history as she was talking to someone who was not present in the room, presented with concerning for abdominal pain, patient urine is suspicious for UTI and being treated with ceftriaxone, her urine is growing E coli, pending sensitivity, most likely her symptoms have are aggravated by the UTI, how symptoms are improving, as patient smiles blood culture are pending, patient is being treated with will monitor. once clinically stable, will have PT/OT evaluate the patient. patient does complaints of left knee, does not any trauma, most likely OA, will do left knee x-ray and plan. Subjective Date/time seen: 09/04/24 14:03 Interval history: H&P-HPI Narrative: Patient presents here sent from a assisted due to lethargy and fever, patient has history of schizophrenia, she states that she does not feel good, she reports congestion, denies dysuria or abd pain Medical decision making narrative: 69 year-old patient presenting with fever, altered mental status. Initially she does have a fever and slightly low blood pressure, septic workup initiated, antibiotics started. Chest x-ray on my independent interpretation does not show any obvious consolidation or signs of pneumonia. EKG on my independent interpretation shows normal sinus rhythm rate 76, CT 232, QRS 185, QTC 508. Fluids started. Given her cardiac history I will be judicious with fluids. Urinalysis is obtained and positive for signs of infection. Patient denies any abdominal pain and no prior history of kidney stones per my review of CTs in the past. Urine culture sent. Patient started on ceftriaxone and admitted to hospitalist. upon arrival patient was unable to provider any ROS or history as she was talking to someone who was not present in the room, presented with concerning for abdominal pain, patient urine is suspicious for UTI and being treated with ceftriaxone, her urine is growing E coli, pending sensitivity, most likely her symptoms have are aggravated by the UTI, how symptoms are improving, as patient smiles blood culture are pending, patient is being treated with will monitor. once clinically stable, will have PT/OT evaluate the patient. patient does complaints of left knee, does not any trauma, most likely OA, will do left knee x-ray and plan. Exam Narrative: Morbidly obese Patient is comfortable, NAD HEENT: eyes are clear and none icteric LUNGS:CTA HEART: RR S1S2 ABD: BS+, Soft and nontender Lower extremities: no edema SKIN: nonjaundiced Neuro: grossly intact. Confused Objective Data Vital Signs Vital Signs: Vital Signs - 24 hr 09/03/24 16:00 09/03/24 20:00 09/03/24 20:00 Temperature Pulse Rate 62 64 Respiratory Rate Blood Pressure Pulse Oximetry Oxygen Delivery Room Air 09/03/24 20:19 09/03/24 22:00 09/04/24 00:00 Temperature 36.9 C Pulse Rate 63 63 Respiratory Rate 18 Blood Pressure 128/65 Pulse Oximetry 96 96 Oxygen Delivery Room Air 09/04/24 04:00 09/04/24 06:00 09/04/24 08:00 Temperature 36.6 C Pulse Rate 67 64 Respiratory Rate 18 Blood Pressure 122/58 L Pulse Oximetry 96 Oxygen Delivery Room Air 09/04/24 08:00 09/04/24 12:00 Temperature Pulse Rate 60 66 Respiratory Rate Blood Pressure Pulse Oximetry Oxygen Delivery Intake/Output Intake/Output: Intake & Output 09/01/24 09/02/24 09/03/24 09/04/24 23:59 23:59 23:59 23:59 Intake Total 4436.0 4180 1464.7 Output Total 310 Balance 4126.0 4180 1464.7 Meds/Results Medications: Active Medications Generic Name Dose Route Start Last Admin Trade Name Freq PRN Reason Stop Dose Admin Acetaminophen 650 mg 09/03/24 15:28 Acetaminophen 325 Mg Tablet PO Q6H PRN Pain 1-3 Ascorbic Acid 500 mg 09/03/24 17:00 09/04/24 08:57 Ascorbic Acid 500 Mg Tablet PO 500 mg BID CANDICE Administration Bisacodyl 10 mg 09/03/24 15:28 Bisacodyl 10 Mg Suppository RECTAL DAILY PRN Constipation Docusate Sodium 100 mg 09/03/24 15:28 Docusate Sodium 100 Mg Capsule PO Q12H PRN constipation Ferrous Sulfate 325 mg 09/03/24 17:00 09/04/24 08:59 Ferrous Sulfate [address] PO 325 mg BID CANDICE Administration Fluoxetine HCl 40 mg 09/04/24 09:00 09/04/24 08:58 Fluoxetine Hcl 20 Mg Capsule PO 40 mg DAILY CANDICE Administration Guaifenesin 100 mg 09/03/24 15:28 Guaifenesin 200 Mg/10 Ml Udc PO Q4H PRN Cough Lactated Ringer's 1,000 mls @ 100 mls/hr 09/02/24 05:25 09/04/24 08:58 Lr - Lactated Ringers Iv IV CONT 100 mls/hr .Q10H CANDICE Administration Ceftriaxone Sodium 1 gm/ 50 mls @ 100 mls/hr 09/03/24 16:00 09/03/24 18:03 Sodium Chloride IVPB Infused Q24H CANDICE Infusion Lamotrigine 100 mg/ 150 mg 09/03/24 21:00 09/03/24 20:38 Lamotrigine 50 mg PO 150 mg HS CANDICE Administration Levothyroxine Sodium 25 mcg 09/04/24 06:30 09/04/24 06:28 Levothyroxine Sodium 25 Mcg Tablet PO 25 mcg DAILY@0630 CANDICE Administration Lisinopril 40 mg 09/04/24 09:00 09/04/24 08:58 Lisinopril 20 Mg Tablet PO 40 mg DAILY CANDICE Administration [place] Carbonate 300 mg 09/03/24 21:00 09/04/24 08:59 [place] Carbonate 300 Mg Capsule PO 300 mg Q12HR CANDICE Administration Magnesium Citrate 300 ml 09/03/24 15:28 Magnesium Citrate 300 Ml Btl PO DAILY PRN Constipation Magnesium Hydroxide 30 ml 09/03/24 15:28 Magnesium Hydroxide Susp 30 Ml Udc PO HS PRN Constipation Meloxicam 7.5 mg 09/04/24 09:00 09/04/24 08:58 Meloxicam 7.5 Mg Tablet PO 7.5 mg DAILY CANDICE Administration Ondansetron HCl 4 mg 09/03/24 15:28 Ondansetron Hcl Odt 4 Mg Tablet PO Q6H PRN Nausea Pantoprazole Sodium 40 mg 09/04/24 09:00 09/04/24 08:58 Pantoprazole 40 Mg Tablet PO 40 mg QAM CANDICE Administration Risperidone 1 mg 09/03/24 21:00 09/04/24 08:58 Risperidone 1 Mg Tablet PO 1 mg Q12HR CANDICE Administration Selenium Sulfide 1 applic 09/04/24 09:00 09/04/24 09:00 Selenium Sulfide 1% Shampoo 207 Ml TOPICAL 1 applic MoTh@0900 CANDICE Administration Simvastatin 40 mg 09/03/24 21:00 09/03/24 20:38 Simvastatin 20 Mg Tablet PO 40 mg HS CANDICE Administration Tramadol HCl 50 mg 09/03/24 15:28 Tramadol Hcl (*Crx) 50 Mg Tablet PO Q8H PRN moderate pain Vitamin D 50 mcg 09/04/24 09:00 09/04/24 08:59 Cholecalciferol (Vitamin D3) 25 Mcg (1,000 Units) Tablet PO 50 mcg DAILY CANDICE Administration Radiology Results: ITS Impressions Chest X-Ray 09/02/24 07:34 Impression: 1: No acute cardiopulmonary disease. Quality VTE Prophylaxis VTE prophylaxis: mechanical ordered
[2024-09-04] MEDS: cefTRIAXone 1 GM in SODIUM CHLORIDE 0.9% IV 50 ML 100 ML IVPB (17:02)
[2024-09-04] MEDS: SIMVASTATIN 20 MG TABLET 40 MG PO (20:37)
[2024-09-05] VITALS (7 sets, daily range): BP systolic 103–126; BP diastolic 44–68; PULSE 60–70; RESP 18; TEMP 36.2–36.6; O2SAT 97–98
[2024-09-05] MEDS: LEVOTHYROXINE SODIUM 25 MCG TABLET PO (05:32)
[2024-09-05] MEDS: FERROUS SULFATE 325 MG TABLET DR PO ×2 (09:05→17:17)
[2024-09-05] MEDS: MELOXICAM 7.5 MG TABLET PO (09:06)
[2024-09-05] MEDS: ASCORBIC ACID 500 MG TABLET PO ×2 (09:06→17:17)
[2024-09-05] MEDS: LITHIUM CARBONATE 300 MG CAPSULE PO ×2 (09:06→20:09)
[2024-09-05] MEDS: PANTOPRAZOLE 40 MG TABLET PO (09:06)
[2024-09-05] MEDS: CHOLECALCIFEROL (VITAMIN D3) 25 MCG (1,000 UNITS) TABLET 50 MCG PO (09:06)
--- NOTE | 2024-09-05 15:07 | PM.IMPN ---
Progress Note: A&P Assessment and Plan (1) Schizophrenia: Code(s): F20.9 - Schizophrenia, unspecified Status: Acute (2) Bipolar disorder: Code(s): F31.9 - Bipolar disorder, unspecified Status: Acute (3) HTN (hypertension): Code(s): I10 - Essential (primary) hypertension Status: Acute (4) Acute UTI: Code(s): N39.0 - Urinary tract infection, site not specified Status: Acute Plan Patient presents here sent from a senior living due to lethargy and fever, patient has history of schizophrenia, she states that she does not feel good, she reports congestion, denies dysuria or abd pain Septic workup initiated. Antibiotics started. Chest x-ray showed no obvious consolidation or pneumonia. EKG with sinus rhythm with nonspecific ST-T changes. She received IV fluids. Urinalysis positive for infection Bilateral knee osteoarthritis History of left knee surgery History of schizophrenia longterm resident History of complete heart block status post pacemaker implantation 12/2023 Hypertension Hyperlipidemia Hypothyroidism Bipolar disorder Seizure disorder History of left knee replacement subsequent hardware removal due to infection Repair of left hip fracture in the past DVT prophylaxis Code status full code Subjective Date/time seen: 09/05/24 15:07 Interval history: H&P-HPI Narrative: Patient presents here sent from a senior living due to lethargy and fever, patient has history of schizophrenia, she states that she does not feel good, she reports congestion, denies dysuria or abd pain Medical decision making narrative: 69 year-old patient presenting with fever, altered mental status. Initially she does have a fever and slightly low blood pressure, septic workup initiated, antibiotics started. Chest x-ray on my independent interpretation does not show any obvious consolidation or signs of pneumonia. EKG on my independent interpretation shows normal sinus rhythm rate 76, [place] 232, QRS 185, QTC 508. Fluids started. Given her cardiac history I will be judicious with fluids. Urinalysis is obtained and positive for signs of infection. Patient denies any abdominal pain and no prior history of kidney stones per my review of CTs in the past. Urine culture sent. Patient started on ceftriaxone and admitted to hospitalist. upon arrival patient was unable to provider any ROS or history as she was talking to someone who was not present in the room, presented with concerning for abdominal pain, patient urine is suspicious for UTI and being treated with ceftriaxone, her urine is growing E coli, pending sensitivity, most likely her symptoms have are aggravated by the UTI, how symptoms are improving, as patient smiles blood culture are pending, patient is being treated with will monitor. once clinically stable, will have PT/OT evaluate the patient. patient does complaints of left knee, does not any trauma, most likely OA, will do left knee x-ray and plan. 09/05/2024: No overnight events. No new complaints. Awaiting urine culture. Left knee is hurting. Review of Systems Review of Systems: All systems reviewed & are unremarkable except as noted in HPI and below Exam Narrative: Morbidly obese Patient is comfortable, NAD HEENT: eyes are clear and none icteric LUNGS:CTA HEART: RR S1S2 ABD: BS+, Soft and nontender Lower extremities: no edema SKIN: nonjaundiced Neuro: grossly intact. Alert and Conversant Objective Data Vital Signs Vital Signs: Vital Signs - 24 hr 09/04/24 16:00 09/04/24 20:00 09/04/24 20:37 Temperature 98.4 F Pulse Rate 60 67 60 Respiratory Rate 18 Blood Pressure 136/64 Pulse Oximetry 98 Oxygen Delivery 09/05/24 00:00 09/05/24 04:00 09/05/24 04:12 Temperature 97.9 F Pulse Rate 62 60 60 Respiratory Rate 18 Blood Pressure 126/68 Pulse Oximetry 97 Oxygen Delivery 09/05/24 08:00 09/05/24 08:00 09/05/24 12:00 Temperature Pulse Rate 70 60 Respiratory Rate Blood Pressure Pulse Oximetry Oxygen Delivery Room Air 09/05/24 14:06 Temperature 97.2 F L Pulse Rate 68 Respiratory Rate 18 Blood Pressure 103/44 L Pulse Oximetry 98 Oxygen Delivery Intake/Output Intake/Output: Intake & Output 09/02/24 09/03/24 09/04/24 09/05/24 23:59 23:59 23:59 23:59 Intake Total 4436.0 4180 3126.7 730 Output Total 310 1400 Balance 4126.0 4180 3126.7 -670 Meds/Results Medications: Active Medications Generic Name Dose Route Start Last Admin Trade Name Freq PRN Reason Stop Dose Admin Acetaminophen 650 mg 09/03/24 15:28 Acetaminophen 325 Mg Tablet PO Q6H PRN Pain 1-3 Ascorbic Acid 500 mg 09/03/24 17:00 09/05/24 09:06 Ascorbic Acid 500 Mg Tablet PO 500 mg BID CANDICE Administration Bisacodyl 10 mg 09/03/24 15:28 Bisacodyl 10 Mg Suppository RECTAL DAILY PRN Constipation Docusate Sodium 100 mg 09/03/24 15:28 Docusate Sodium 100 Mg Capsule PO Q12H PRN constipation Ferrous Sulfate 325 mg 09/03/24 17:00 09/05/24 09:05 Ferrous Sulfate [address] PO 325 mg BID CANDICE Administration Fluoxetine HCl 40 mg 09/04/24 09:00 09/05/24 09:06 Fluoxetine Hcl 20 Mg Capsule PO 40 mg DAILY CANDICE Administration Guaifenesin 100 mg 09/03/24 15:28 Guaifenesin 200 Mg/10 Ml Udc PO Q4H PRN Cough Lactated Ringer's 1,000 mls @ 100 mls/hr 09/02/24 05:25 09/04/24 22:00 Lr - Lactated Ringers Iv IV CONT 100 mls/hr .Q10H CANDICE Administration Ceftriaxone Sodium 1 gm/ 50 mls @ 100 mls/hr 09/03/24 16:00 09/04/24 17:02 Sodium Chloride IVPB 100 mls/hr Q24H CANDICE Administration Lamotrigine 100 mg/ 150 mg 09/03/24 21:00 09/04/24 20:39 Lamotrigine 50 mg PO 150 mg HS CANDICE Administration Levothyroxine Sodium 25 mcg 09/04/24 06:30 09/05/24 05:32 Levothyroxine Sodium 25 Mcg Tablet PO 25 mcg DAILY@0630 CANDICE Administration Lisinopril 40 mg 09/04/24 09:00 09/05/24 12:50 Lisinopril 20 Mg Tablet PO 40 mg DAILY CANDICE Administration [place] Carbonate 300 mg 09/03/24 21:00 09/05/24 09:06 [place] Carbonate 300 Mg Capsule PO 300 mg Q12HR CANDICE Administration Magnesium Citrate 300 ml 09/03/24 15:28 Magnesium Citrate 300 Ml Btl PO DAILY PRN Constipation Magnesium Hydroxide 30 ml 09/03/24 15:28 Magnesium Hydroxide Susp 30 Ml Udc PO HS PRN Constipation Meloxicam 7.5 mg 09/04/24 09:00 09/05/24 09:06 Meloxicam 7.5 Mg Tablet PO 7.5 mg DAILY CANDICE Administration Ondansetron HCl 4 mg 09/03/24 15:28 Ondansetron Hcl Odt 4 Mg Tablet PO Q6H PRN Nausea Pantoprazole Sodium 40 mg 09/04/24 09:00 09/05/24 09:06 Pantoprazole 40 Mg Tablet PO 40 mg QAM CANDICE Administration Risperidone 1 mg 09/03/24 21:00 09/05/24 09:06 Risperidone 1 Mg Tablet PO 1 mg Q12HR CANDICE Administration Selenium Sulfide 1 applic 09/04/24 09:00 09/04/24 09:00 Selenium Sulfide 1% Shampoo 207 Ml TOPICAL 1 applic MoTh@0900 CANDICE Administration Simvastatin 40 mg 09/03/24 21:00 09/04/24 20:37 Simvastatin 20 Mg Tablet PO 40 mg HS CANDICE Administration Tramadol HCl 50 mg 09/03/24 15:28 Tramadol Hcl (*Crx) 50 Mg Tablet PO Q8H PRN moderate pain Vitamin D 50 mcg 09/04/24 09:00 09/05/24 09:06 Cholecalciferol (Vitamin D3) 25 Mcg (1,000 Units) Tablet PO 50 mcg DAILY CANDICE Administration Radiology Results: ITS Impressions Chest X-Ray 09/02/24 07:34 Impression: 1: No acute cardiopulmonary disease. Knee X-Ray 09/04/24 14:54 Impression: 1: Moderate osteoarthritis of the right knee.
--- NOTE | 2024-09-05 15:26 | P.DS_ITS ---
DS: Admitting Diagnosis Discharge Date 09/05/2024 Admitting Diagnosis UTI DS: Discharge Diagnosis Discharge Diagnosis (1) Schizophrenia: Code(s): F20.9 - Schizophrenia, unspecified Status: Acute (2) Bipolar disorder: Code(s): F31.9 - Bipolar disorder, unspecified Status: Acute (3) HTN (hypertension): Code(s): I10 - Essential (primary) hypertension Status: Acute (4) Acute UTI: Code(s): N39.0 - Urinary tract infection, site not specified Status: Acute DS: Summary Hospital Course Hospital Course: Patient presents here sent from a care home due to lethargy and fever, patient has history of schizophrenia, she states that she does not feel good, she reports congestion, denies dysuria or abd pain Septic workup initiated. Antibiotics started. Chest x-ray showed no obvious consolidation or pneumonia. EKG with sinus rhythm with nonspecific ST-T changes. She received IV fluids. Urinalysis positive for infection. Treated with ceftriaxone. Improved blood culture negative today. Will switch to cefdinir at discharge. Urine culture growing E coli sensitivities pending at the time of discharge. She received 4 doses ceftriaxone during the hospital stay. Bilateral knee osteoarthritis History of left knee surgery History of schizophrenia assisted resident History of complete heart block status post pacemaker implantation 12/2023 Hypertension Hyperlipidemia Hypothyroidism Bipolar disorder Seizure disorder History of left knee replacement subsequent hardware removal due to infection Repair of left hip fracture in the past DVT prophylaxis Code status full code Time Spent with Patient Time attestation: Total time spent providing and/or coordinating discharge services: 35 minutes Exam Narrative: Morbidly obese Patient is comfortable, NAD HEENT: eyes are clear and none icteric LUNGS:CTA HEART: RR S1S2 ABD: BS+, Soft and nontender Lower extremities: no edema SKIN: nonjaundiced Neuro: grossly intact. Alert and Conversant DS: Data Data Completed and Pending Labs on day of discharge: Preliminary micro results at discharge 09/01/24 23:46 Blood Culture - Preliminary Blood 09/02/24 01:25 Blood Culture - Preliminary Blood 09/02/24 01:57 - Preliminary Urine Clean Catch Escherichia coli. Imaging Radiologist's impression: ITS Impressions Chest X-Ray 09/02/24 07:34 Impression: 1: No acute cardiopulmonary disease. Knee X-Ray 09/04/24 14:54 Impression: 1: Moderate osteoarthritis of the right knee. Discharge Plan Discharge Attending physician on discharge: Roney Viera Discharging Clinician: Roney Viera Anticipated Discharge Date/Time: 09/05/24 15:27 Patient Disposition: SNF Activity: as tolerated Diet: heart healthy Patient Language: Kazakh Stand Alone Forms: General Discharge Information Follow-up/Referrals: PHYSICIAN NOT ON STAFF,NONSTAFF [Primary Care Provider] - 1 Week Discharge Medications: New cefdinir 300 mg capsule 300 mg PO Q12H Qty: 6 0RF Continued lamotrigine 150 mg tablet 150 mg PO HS simvastatin 40 mg tablet 40 mg PO HS levothyroxine 25 mcg tablet 25 mcg PO DAILY lisinopril 40 mg tablet 40 mg PO DAILY acetaminophen [Tylenol] 325 mg Tablet 650 mg PO Q6H PRN (Reason: Pain) magnesium hydroxide [Milk of Magnesia] 400 mg/5 mL Suspension 30 ml PO HS PRN (Reason: Constipation) Rx Instructions: give 30 ml by mouth every 24 hours as needed for constipation at bedtime if no bm in 3 days lithium carbonate 300 mg Capsule 300 mg PO BID bisacodyl 10 mg Suppository 10 mg RECTAL DAILY PRN (Reason: Constipation) Rx Instructions: q 24 hrs as needed for constipation daily if no results with MOM Fleet Enema 19-7 gram/118 mL Enema 118 ml RECTAL DAILY PRN (Reason: Constipation) Rx Instructions: q24 hrs as needed for constipation if no results 1 day after suppository magnesium citrate Solution 300 ml PO DAILY PRN (Reason: Constipation) Rx Instructions: give 300 ml by mouth every 24 hours as needed for constipation in am if no results after enema. if no results within 1 hours, contact MD immediately for further orders ondansetron 4 mg Tablet,Disintegrating 4 mg PO Q6H PRN (Reason: Nausea) cholecalciferol (vitamin D3) 25 mcg (1,000 unit) capsule 2,000 unit PO DAILY ketoconazole 2 % shampoo 1 applic topical 2XW Rx Instructions: Mondays and tramadol 50 mg tablet 50 mg PO Q8H PRN (Reason: moderate pain) docusate sodium 100 mg capsule 100 mg PO .q12hr PRN (Reason: constipation) ferrous sulfate 325 mg (65 mg iron) tablet 325 mg PO BID Qty: 60 0RF pantoprazole 40 mg tablet,delayed release (DR/EC) 40 mg PO QAM Qty: 30 0RF fluoxetine 40 mg Capsule 40 mg PO DAILY guaifenesin [Marybeth-Tussin] 100 mg/5 mL Liquid 100 mg PO Q4H PRN (Reason: Cough) meloxicam 7.5 mg Tablet 7.5 mg PO DAILY ascorbic acid (vitamin C) 500 mg Tablet 500 mg PO BID risperidone 0.5 mg Tablet 1 mg PO BID Date of admission: 09/02/24 07:40 Primary Care Provider: PHYSICIAN NOT ON STAFF,NONSTAFF Admitting Provider: Jie Middleton Attending physician on admission: Jie Middleton Condition: Stable
[2024-09-05] MEDS: cefTRIAXone 1 GM in SODIUM CHLORIDE 0.9% IV 50 ML 100 ML IVPB (15:52)
[2024-09-05] MEDS: SIMVASTATIN 20 MG TABLET 40 MG PO (20:08)
--- NOTE | 2024-09-05 20:19 | PC.NURSE ---
HS medications given before discharge; a note sent in transfer packet. The card writer hand called the receiving facility to update - no answer . See MAR
--- NOTE | 2024-09-08 06:33 | WPDCDIQUERY2 ---
CDI Query Clarification Request Please clarify if sepsis has been ruled in or ruled out. The medical chart reflects the following: ER documentation 69 year-old patient presenting with fever, altered mental status. Initially she does have a fever and slightly low blood pressure, septic workup initiated, antibiotics started. Chest x-ray on my independent interpretation does not show any obvious consolidation or signs of pneumonia. EKG on my independent interpretation shows normal sinus rhythm rate 76, [place] 232, QRS 185, QTC 508. Fluids started. Given her cardiac history I will be judicious with fluids. Urinalysis is obtained and positive for signs of infection. Patient denies any abdominal pain and no prior history of kidney stones per my review of CTs in the past. Urine culture sent. Patient started on ceftriaxone and admitted to hospitalist. Clinical Impression: Sepsis, Acute UTI Hospital Course: Patient presents here sent from a correction due to lethargy and fever, patient has history of schizophrenia, she states that she does not feel good, she reports congestion, denies dysuria or abd pain Septic workup initiated. Antibiotics started. Chest x-ray showed no obvious consolidation or pneumonia. EKG with sinus rhythm with nonspecific ST-T changes. She received IV fluids. Urinalysis positive for infection. Treated with ceftriaxone. Improved blood culture negative today. Will switch to cefdinir at discharge. Urine culture growing E coli sensitivities pending at the time of discharge. She received 4 doses ceftriaxone during the hospital stay. <Tanya Wong RN - Last Filed: 09/08/24 06:35> Provider Comments Sepsis due in <Roney Viera MD - Last Filed: 09/15/24 08:20>
== END 2024-09-05 20:28 | DRG 690 ==
LOC: ANHED 09-02 02:33 → ANH3MED 09-02 02:39
PROVIDERS: Admitting Provider General Practice; Emergency Provider Emergency Medicine; Visit Provider Internal Medicine
DX: N39.0 Urinary tract infection, site not specified (principal); B96.20 Unspecified Escherichia coli [E. coli] as the cause of diseases classified elsewhere; F41.9 Anxiety disorder, unspecified; E03.9 Hypothyroidism, unspecified; F31.9 Bipolar disorder, unspecified; F20.9 Schizophrenia, unspecified; I10 Essential (primary) hypertension; M17.0 Bilateral primary osteoarthritis of knee; Z86.73 Personal history of transient ischemic attack (TIA), and cerebral infarction without residual deficits; Z20.822 Contact with and (suspected) exposure to COVID-19
CPT/HCPCS: 36415; 71045; 73560; 80048; 80053; 80178; 81001; 83605; 83735; 84484; 85025; 85610; 85730; 86140; 87040; 87086; 87637; 93005; 96361; 96365; 99285; A9270; G0378; J0696; J7120